=== PATIENT | male | born 1975 | race Two or more races ===

== ENCOUNTER 2021-11-17 10:05 | Outpatient (REF) | payer OTHER, SELFPAY ==
[2021-11-17 09:19] LABS: MANUAL DIFF FLAG NO
[2021-11-17 09:47] LABS: Basophils Percent Auto 0.6 % (0-2); Eosinophils Absolute Auto 0.2 X10*3/uL (0.0-0.4); Eosinophils Percent Auto 3.7 % (0-4); Hematocrit 46.2 % (42.0-52.0); Hemoglobin 16.1 g/dl (14.0-18.0); Imm Gran Abs Auto 0.02 X10*3/uL (0.00-0.03); Imm Gran Pct Auto 0.4 % (0.0-0.4); Lymphocytes Absolute Auto 1.5 X10*3/uL (1.2-4.9); Lymphocytes Percent Auto 30.5 % (20-40); Mean Corpuscular HGB Conc 34.8 g/dl (31.0-36.0); Mean Corpuscular Hemoglobin 31.4 pg (27.0-33.0); Mean Corpuscular Volume 90.2 fL (80.0-98.0); Mean Platelet Volume 10.5 fL (9.4-12.4); Monocytes Absolute Auto 0.5 X10*3/uL (0.1-1.2); Monocytes Percent Auto 10.3 % (2-11); Neutrophils Absolute Auto 2.7 x10*3/uL (2.0-8.3); Neutrophils Percent Auto 54.5 % (45-73); Platelet Count 236 X10*3/uL (160-400); Red Blood Count 5.12 X10*6/uL (4.60-5.80); Red Cell Distribution Width 11.9 % (11.0-16.0); White Blood Count 4.9 X10*3/uL (4.8-10.8)
[2021-11-17 10:13] LABS: Alanine Aminotransferase 16 U/L (0-40); Albumin Level 4.3 g/dL (3.5-5.0); Alkaline Phosphatase 84 U/L (39-117); Anion Gap 12 (12-20); Aspartate Amino Transferase 16 U/L (5-37); Bilirubin Total 1.1 mg/dL (0.0-1.0); Blood Urea Nitrogen 12 mg/dL (9-16); Calcium 9.5 mg/dL (8.4-10.2); Carbon Dioxide 31 mmol/L (22-29); Chloride 103 mmol/L (96-108); Cholesterol 145 mg/dL; Estimated Glomerular Filt Rate > 60; Glucose Fasting 102 mg/dL (60-99); HDL Cholesterol 29 mg/dL; LDL Cholesterol Calculated 92 mg/dl; Potassium 4.5 mmol/L (3.3-5.1); Sodium 141 mmol/L (135-145); Total Protein 7.1 g/dL (6.5-8.0); Triglycerides 121 mg/dL
== END 2021-11-17 10:06 | disposition home or self-care (01) ==
LOC: HO.LAB 10:05
PROVIDERS: Visit Provider Internal Medicine
DX: Z00.00 Encounter for general adult medical examination without abnormal findings (principal); Z13.0 Encounter for screening for diseases of the blood and blood-forming organs and certain disorders involving the immune mechanism; Z13.9 Encounter for screening, unspecified
CPT/HCPCS: 36415; 80053; 80061; 85025

== ENCOUNTER 2021-11-26 18:38 | Emergency (ER) | payer OTHER, SELFPAY ==
--- NOTE | 2021-11-26 19:54 | PC.NURSE ---
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
[2021-11-26 20:36] VITALS: BP 137/100; PULSE 90; RESP 18; TEMP 36.4; O2SAT 98; BMI 27.6
--- NOTE | 2021-11-26 21:20 | ED_ITS ---
HPI - Eye Problem General Chief complaint: Eye Problems Stated complaint: right eye itchy Time Seen by Provider: 11/26/21 21:17 Source: patient and reporting lead (typing section chief) Mode of arrival: ambulatory Limitations: language barrier History of Present Illness HPI Narrative: 46-year-old male healthy here with reports of right upper eyelid swelling and redness with some discomfort and itching for the last 1 week. No vision changes. No recent cough or cold symptoms. Related Data Previous Rx's Medication Instructions Recorded erythromycin 5 mg/gram (0.5 %) eye 0.5 inch OPHTHALMIC (EYE) TID #3.5 11/26/21 ointment g Allergies Allergy/AdvReac Type Severity Reaction Status Date / Time none Allergy Unknown Unknown Uncoded 11/26/21 20:39 Review of Systems Review of Systems: Yes all other systems are reviewed and are negative Constitutional: Constitutional: Reports no additional constitutional complaints, Denies body ache(s), Denies chills, Denies fever(s), Denies headache(s) and Denies weakness Eyes: Eyes: Reports no additional eye complaints, Denies change in vision, Denies eye discharge, Denies irritation and Reports itchy eyes Comments: eyelid swelling, redness ENT: Reports system reviewed and no additional complaints, except as do cumented, Denies dizziness, Denies headache(s), Denies nasal congestion, Denies nasal discharge and Denies neck pain Cardiovascular: Cardiovascular: Reports no additional cardiovascular complaints, Denies chest pain, Denies leg edema and Denies dyspnea Respiratory: Respiratory: Reports no additional respiratory complaints, Denies cough and Denies dyspnea Gastrointestinal: Gastrointestinal: Reports no additional gastrointestinal complaints, Denies abdominal pain, Denies diarrhea, Denies nausea and Denies vomiting Genitourinary: Genitourinary: Denies urinary incontinence Musculoskeletal: Musculoskeletal: Reports no additional musculoskeletal complaints, Denies back pain, Denies arthralgias, Denies joint swelling, Denies neck pain, Denies numbness and Denies tingling Integumentary/Breasts: Skin/Breast: Reports system reviewed and no additional complaints, except as docu and Denies rash Neurologic: Reports system reviewed and no additional complaints, except as documented, Denies Abnormal speech present, Denies dizziness, Denies heada irma(s), Denies numbness, Denies tingling and Denies weakness Allergic/Immunologic: Allergic/Immunologic: Reports itchy eyes PMFSH Past Medical History Attestation statement: The following information was validated with the patient. Source: old records reviewed and nursing notes reviewed Social History Social History Housing: Apartment Patient Tobacco Use Status: Never used Tobacco e-Cigarette/Vaping Use: Never Used Second Hand Smoke Exposure: No Advance Directives: No Advance Directives Information Provided: No service: No Current occupational status: disabled Current occupational exposures/hazards: No Cognitive needs: Yes Hearing needs: No Vision needs: Yes Physical Exam Vital Signs: Vital Signs: Last Vital Signs Temp 97.5 F 11/26/21 20:36 Pulse 90 11/26/21 20:36 Resp 18 11/26/21 20:36 BP 137/100 H 11/26/21 20:36 Pulse Ox 98 11/26/21 20:36 BMI result Body Mass Index 27.6 Const: General: cooperative, healthy appearing, comfortable and no acute distress Orientation/consciousness: patient oriented x3 Limitations: no limitations HEENT: Head: Yes normal to inspection Ears: hearing grossly normal bilaterally General nose exam: Normal external nose present Face and sinus: Yes normal facial exam Mouth: Normal oral and palatal mucosa present Throat: Yes posterior oropharynx normal Eyes: Other: To the right upper eyelid there is an area of swelling, redness over the lateral aspect. Visual Hutchison: normal visual hutchison by confrontation Alignment and Position: alignment normal Periorbital: periorbital findings normal Conjunctivae: conjunctivae normal Sclerae: sclerae normal Corneas: corneas normal Pupils: Equal, round and reactive pupils present EOM: EOMs intact bilaterally Direct Ophthalmoscopy: normal light reflex and no photophobia Neck: Neck: Yes normal visual inspection Chest: Chest palpation & inspection: normal inspection of the chest Resp: Effort & Inspection: normal respiratory effort Auscultation: clear to auscultation bilaterally Cardio: Rate: regular rate Rhythm: regular rhythm Peripheral pulses: Peripheral pulses 2+ throughout GI: Inspection: Yes normal to inspection Palpation (GI): Soft to palpation and nontender Auscultation: normal bowel sounds Back/Spine/Pelvis: Thoracic/Lumbar Spine: thoracic and lumbar spine normal to inspection Skin: General skin exam: no rashes or lesions noted Neuro: General: patient oriented x3, no focal motor deficits and normal sensation to monofilament Cranial nerves: Yes Equal, round and reactive pupils present Cognition (Neuro): normal cognition Speech: No Abnormal speech present Gait exam (Neuro): Normal gait present Motor exam (neuro): 5/5 motor strength present throughout Extrem: General: Yes normal to inspection Course Course Course Narrative: 46-year-old male here with reports of right upper eyelid swelling, redness and itching for the last 1 week. Exam is consistent with a chalazion. Of we discussed warm compresses at home, gentle massage and topical antibiotic ointment. Reviewed worrisome signs and symptoms of when to return to the emergency department. Comfortable discharge home. MDM - Eye Problem Medical Records Attestation: I reviewed the patient's medical records. Lab Data Attestation: I reviewed the patient's lab results. Discharge Plan Discharge Clinical Impression: Chalazion of right upper eyelid Patient Disposition: Home, Self-Care Instructions: Chalazion (ED) Additional Instructions: Warm compresses 4 times daily, gentle massage to the eye Prescriptions: New erythromycin 5 mg/gram (0.5 %) ointment 0.5 inch ophthalmic (eye) TID Qty: 3.5 0RF Referrals: Laci Ayers MD [Primary Care Provider] - 1 week (as needed) Interventions: ED Discharge Assessment Last Done: 11/26/21 21:43 Discharge Date/Time: 11/26/21 21:45
[2021-11-26] MEDS: Erythromycin Base 0.5% Oph Oin 1 GM TUBE 1 CM EYE-RIGHT (21:37)
== END 2021-11-26 21:45 | disposition home or self-care (01) ==
LOC: HO.ED 21:23
PROVIDERS: Emergency Provider Emergency Medicine; PCP Internal Medicine
DX: H00.11 Chalazion right upper eyelid (principal)
CPT/HCPCS: 99283

== ENCOUNTER 2021-12-09 10:14 | Outpatient (REF) | payer OTHER, SELFPAY ==
--- NOTE | ~2021-12-09 | US_ITS ---
EXAMINATION: US ABDOMEN COMPLETE CLINICAL INFORMATION: Unspecified abdominal pain. COMPARISON: US abdomen complete with liver elastography 03/07/2020. Ultrasound abdomen complete 02/06/2020. TECHNIQUE: Real-time imaging of the abdominal viscera. FINDINGS: PANCREAS: The head and body appear unremarkable. The tail is obscured by overlying bowel gas. ABDOMINAL AORTA: No abnormality appreciated. INFERIOR VENA CAVA: Visualized portions are normal. LIVER: Normal. The liver is normal in size. The liver contour is normal. Parenchymal echogenicity is normal. No focal hepatic lesion. There is no intrahepatic biliary duct dilatation seen. GALLBLADDER: Normal. The gallbladder is physiologically distended without evidence of stones, sludge, polyps, wall thickening or pericholecystic fluid. COMMON BILE DUCT: Normal in caliber measuring 0.7 cm in diameter. RIGHT KIDNEY: Normal. No hydronephrosis. No renal calculi or focal parenchymal lesions. The kidney measures 11.9 cm in maximum dimension. LEFT KIDNEY: Normal. No hydronephrosis. No renal calculi or focal parenchymal lesions. The kidney measures 12.4 cm in maximum dimension. SPLEEN: Normal. The spleen measures 9.8 cm in maximum dimension. FREE FLUID: None. US/US abdomen complete IMPRESSION: Normal abdominal ultrasound study.
== END 2021-12-09 10:15 | disposition home or self-care (01) ==
LOC: HO.US 10:14
PROVIDERS: PCP Internal Medicine; Visit Provider Internal Medicine
DX: R10.9 Unspecified abdominal pain (principal)
CPT/HCPCS: 76700

== ENCOUNTER 2022-06-05 08:13 | Outpatient (REF) | payer OTHER, SELFPAY ==
[2022-06-05 08:53] LABS: COVID-19 Test Negative (Negative)
== END 2022-06-05 08:14 | disposition home or self-care (01) ==
LOC: HO.LAB 08:13
PROVIDERS: Visit Provider Internal Medicine
DX: Z20.822 Contact with and (suspected) exposure to COVID-19 (principal)
CPT/HCPCS: 87635; C9803

== ENCOUNTER 2022-09-17 10:10 | Outpatient (REF) | payer OTHER, SELFPAY ==
[2022-09-17 10:22] LABS: MANUAL DIFF FLAG NO
[2022-09-17 11:27] LABS: Basophils Percent Auto 0.7 % (0-2); Eosinophils Absolute Auto 0.1 X10*3/uL (0.0-0.4); Eosinophils Percent Auto 1.5 % (0-4); Hematocrit 45.7 % (42.0-52.0); Hemoglobin 15.5 g/dl (14.0-18.0); Imm Gran Abs Auto 0.01 X10*3/uL (0.00-0.03); Imm Gran Pct Auto 0.2 % (0.0-0.4); Lymphocytes Absolute Auto 1.9 X10*3/uL (1.2-4.9); Mean Corpuscular HGB Conc 33.9 g/dl (31.0-36.0); Mean Corpuscular Hemoglobin 30.6 pg (27.0-33.0); Mean Corpuscular Volume 90.1 fL (80.0-98.0); Mean Platelet Volume 10.3 fL (9.4-12.4); Monocytes Absolute Auto 0.4 X10*3/uL (0.1-1.2); Monocytes Percent Auto 5.9 % (2-11); Neutrophils Absolute Auto 3.5 x10*3/uL (2.0-8.3); Neutrophils Percent Auto 59.7 % (45-73); Platelet Count 253 X10*3/uL (160-400); Red Blood Count 5.07 X10*6/uL (4.60-5.80); Red Cell Distribution Width 12.4 % (11.0-16.0); White Blood Count 5.9 X10*3/uL (4.8-10.8)
[2022-09-17 12:07] LABS: Alanine Aminotransferase 45 U/L (0-40); Albumin Level 4.3 g/dL (3.5-5.0); Alkaline Phosphatase 74 U/L (39-117); Anion Gap 14 (12-20); Aspartate Amino Transferase 25 U/L (5-37); Bilirubin Total 1.2 mg/dL (0.0-1.0); Blood Urea Nitrogen 7 mg/dL (9-16); Calcium 9.9 mg/dL (8.4-10.2); Carbon Dioxide 28 mmol/L (22-29); Chloride 106 mmol/L (96-108); Cholesterol 199 mg/dL; Estimated Glomerular Filt Rate > 60; Glucose Fasting 93 mg/dL (60-99); HDL Cholesterol 39 mg/dL; LDL Cholesterol Calculated 139 mg/dl; Potassium 4.7 mmol/L (3.3-5.1); Sodium 143 mmol/L (135-145); Thyroid Stimulating Hormone 1.32 uIU/mL (0.32-4.0); Total Protein 6.7 g/dL (6.5-8.0); Triglycerides 108 mg/dL
== END 2022-09-17 10:11 | disposition home or self-care (01) ==
LOC: HO.LAB 10:10
PROVIDERS: PCP Internal Medicine; Visit Provider Internal Medicine
DX: E03.9 Hypothyroidism, unspecified (principal); N28.9 Disorder of kidney and ureter, unspecified; E78.5 Hyperlipidemia, unspecified; D64.9 Anemia, unspecified
CPT/HCPCS: 36415; 80053; 80061; 84443; 85025

== ENCOUNTER → 2022-10-19 09:07 | Outpatient (BNVA) | payer OTHER, SELFPAY | PROVIDERS: PCP Internal Medicine; Visit Provider Internal Medicine Gastroenterology | DX: K42.9 Umbilical hernia without obstruction or gangrene (principal); R30.0 Dysuria; Z72.51 High risk heterosexual behavior | CPT/HCPCS: 99212 ==

== ENCOUNTER 2022-10-19 10:32 | Outpatient (REF) | payer OTHER, SELFPAY ==
[2022-10-19 11:43] LABS: Appearance Urine Clear; Color Urine Yellow; Glucose Urine UA Negative (Negative); Leukocyte Esterase Urine Trace (Negative); Nitrite Urine Negative (Negative); PH 8.5 (5.0-9.0); Specific Gravity - Urine 1.025 (1.005-1.025); UMIC TRIGGER UACC YES; Urine Blood Negative (Negative); Urine Ketones Trace mg/dL (Negative); Urine Protein Trace mg/dL (Neg-Trace)
[2022-10-19 11:52] LABS: Bacteria Urine None Seen (None Seen); Hyaline Casts Urine 0-2 /LPF (0-2); Squamous Epithelial Cell Urine 0-2 /HPF (0-2); WBC Urine 0-5 /HPF (0-5)
[2022-10-21 04:39] LABS: HBS Num1 0.24 mIU/mL (0-7.99); HBc Num1 0.08 S/CO (0.00-0.79); HBsAGNum1 0.51 S/CO (0.00-0.99); HIV AB/AG Nonreactive (Nonreactive); HIV Num 1 0.07 S/CO (0.00-0.99); Hepatitis A Antibody IgM 0.18 Index (0-0.79); Hepatitis B Core Antibody Nonreactive (Nonreactive); Hepatitis B Surface Antigen Negative (Negative); ~HepC Num1 0.09 S/CO (0.00-0.79); ~Hepatitis A Antibody IgM Nonreactive (Nonreactive); ~Hepatitis B Surface Antibody NONREACTIVE (Nonreactive); ~Hepatitis C Antibody Nonreactive (Nonreactive)
== END 2022-10-19 10:33 | disposition home or self-care (01) ==
LOC: HO.LAB 10:32
PROVIDERS: PCP Internal Medicine; Visit Provider Internal Medicine Gastroenterology
DX: R30.0 Dysuria (principal); R10.33 Periumbilical pain; Z72.51 High risk heterosexual behavior; Z20.2 Contact with and (suspected) exposure to infections with a predominantly sexual mode of transmission
CPT/HCPCS: 36415; 81001; 86704; 86706; 86709; 86803; 87340; 87389

== ENCOUNTER 2022-10-21 12:32 | Outpatient (REF) | payer OTHER, SELFPAY ==
--- NOTE | ~2022-10-21 | CT_ITS ---
EXAMINATION: CT HEAD WITHOUT CONTRAST CLINICAL INFORMATION: Cognitive dysfunction. COMPARISON: None. TECHNIQUE: Contiguous axial imaging was performed from the skullbase to vertex without intravenous administration of contrast. This CT examination was performed using dose optimization techniques as appropriate, variously including the following: *Automated exposure control *Adjustment of mA and/or kV according to patient size (this includes techniques or standardized protocols for targeted exams where dose is matched to indication/reason for exam; i.e. extremities or head) *Use of iterative reconstruction technique DLP: 898 mGy-cm. FINDINGS: There is no evidence of acute intracranial hemorrhage or territorial infarction. No abnormal mass effect or midline shift is seen. Brown to white matter differentiation is well preserved. No extra-axial fluid collections are identified. The ventricles are normal in size. There is no abnormal attenuation within the brain parenchyma. The osseous structures and soft tissues are normal. The mastoid air cells are well aerated. There is mild mucosal thickening in the ethmoid air cells bilaterally and in the right sphenoid sinus cavity. There is chronic sclerotic wall thickening of the right maxillary sinus with mucosal thickening along the keane of the sinus cavity. There is additional heterogeneous soft tissue density centrally within the right maxillary sinus which is incompletely assessed and has a mass-like appearance with areas of calcification. CT/CT head/brain wo IV con IMPRESSION: No acute intracranial pathology. Normal CT scan of the head. Significant chronic right maxillary sinus disease with incompletely visualized heterogeneous high attenuation soft tissue abnormality which has a mass-like appearance and dystrophic calcifications. Imaging findings may represent a mycetoma. A CT scan of the paranasal sinuses is recommended for further evaluation. An MRI of the sinuses without and with contrast could also be considered for characterization. Recommend ENT follow-up evaluation to guide further management.
== END 2022-10-21 12:33 | disposition home or self-care (01) ==
LOC: HO.CT 12:32
PROVIDERS: Visit Provider Internal Medicine
DX: R41.89 Other symptoms and signs involving cognitive functions and awareness (principal)
CPT/HCPCS: 70450

== ENCOUNTER 2022-11-11 07:52 | Outpatient (REF) | payer OTHER, SELFPAY ==
--- NOTE | ~2022-11-11 | CT_ITS ---
EXAMINATION: CT ENTEROGRAPHY ABDOMEN AND PELVIS WITH CONTRAST CLINICAL INFORMATION: Periumbilical pain COMPARISON: Previous abdominal ultrasound most recent November [address] of the abdomen and pelvis from 2009 TECHNIQUE: Study performed with oral VoLumen (1350 mL) and 480 mL of water to distend the abdomen. The patient was injected with 85 mL Omnipaque 350 intravenous contrast which was administered without adverse effect. Coronal and sagittal reformatted images were obtained at the technologist's workstation. This CT examination was performed using dose optimization techniques as appropriate, variously including the following: *Automated exposure control *Adjustment of mA and/or kV according to patient size (this includes techniques or standardized protocols for targeted exams where dose is matched to indication/reason for exam; i.e. extremities or head) *Use of iterative reconstruction technique DLP: 475 mGy-cm FINDINGS: GASTROINTESTINAL FINDINGS: Stomach: Well-distended and normal in appearance. Small intestine: Satisfactorily distended and normal in appearance. Large intestine: Well-distended and normal in appearance. No perirectal changes demonstrated. The appendix is normal. Additional findings: No abnormal enhancement of the vasa recta or significant mesenteric or retroperitoneal lymphadenopathy is seen. No abdominal abscess or fistulous tract demonstrated. Diastasis of the rectus muscles. Umbilical hernia containing fat with wide neck. This measures 1.5 x 3.5 x 3 cm in AP transverse and longitudinal dimension. ABDOMINAL AND PELVIC CT FINDINGS: Liver, gallbladder, biliary tract: Mild fatty infiltration of the liver. Normal gallbladder. Pancreas: Normal Spleen: Normal Adrenal glands and kidneys: Normal Ureters and bladder: Normal Lymphovascular structures: Normal Bones: Degenerative disc changes at L5-S1. Lung bases: Subsegmental atelectasis in the inferior lingula. Upper normal heart size. CT/CT enterography IMPRESSION: Diastasis of the rectus muscles and umbilical hernia containing fat.
[2022-11-11] MEDS: iohexoL 350 MG/ML 100 ML INFUS..BTL IV (09:39)
== END 2022-11-11 07:53 | disposition home or self-care (01) ==
LOC: HO.CT 07:52
PROVIDERS: PCP Internal Medicine; Visit Provider Internal Medicine Gastroenterology
DX: R10.33 Periumbilical pain (principal); R30.0 Dysuria; Z72.51 High risk heterosexual behavior
CPT/HCPCS: 74177; Q9967

== ENCOUNTER → 2022-11-17 10:13 | Outpatient (BNVA) | payer OTHER, SELFPAY | PROVIDERS: PCP Internal Medicine; Referring Provider Internal Medicine Gastroenterology; Visit Provider Surgery | DX: K42.9 Umbilical hernia without obstruction or gangrene (principal) | CPT/HCPCS: 99202 ==

== ENCOUNTER 2022-12-18 09:15 | Day surgery (SDC) | payer OTHER, SELFPAY ==
[2022-12-15 16:08] VITALS: BMI 28.7
--- NOTE | 2022-12-17 09:46 | HO.ANESPROP2 ---
Documented by User: Fany Dupree NP 12/17/22 09:49 HPI - Anesthesia Eval Consult details Narrative: 47yo M for Open incarcerated Umbilical Hernia [facility]air w[facility] Active Problems Active Problems: All Active Problems (Updated 10/19/22 @ 10:06 by Monet Villatoro MD) Dysuria (Acute) High risk sexual behavior (Acute) Umbilical hernia (Acute) Depression (Acute) Cough (Acute) Deaf (Acute) Physical exam (Acute) Past Medical History Medical History (Updated 12/17/22 @ 09:46 by Fany Dupree NP) Deaf Depression Social History Social History (System 11/26/22 @ 09:55 by Swapna Pelletier) Housing: Apartment Patient Tobacco Use Status: Never used Tobacco e-Cigarette/Vaping Use: Never Used Second Hand Smoke Exposure: No Are you DNR?: No Advance Directives: No Advance Directives Information Provided: Yes service: No Current occupational status: disabled Current occupational exposures/hazards: No Cognitive needs: Yes Hearing needs: No Vision needs: Yes Meds Allergies Allergy/AdvReac Type Severity Reaction Status Date / Time No Known Allergies Allergy Verified 11/26/22 09:55 Exam Exam Date and Time: December 17, 2022 0946 Height,Weight and Vital Signs: Height 5 ft 10 in Weight 90.718 kg Pertinent Lab Results Pertinent Lab Results: Laboratory Tests 09/17/22 09/17/22 10:20 10:20 WBC 5.9 Hgb 15.5 Hct 45.7 Plt Count 253 Sodium 143 Potassium 4.7 Chloride 106 Carbon Dioxide 28 BUN 7 L Creatinine 0.96 Assessment and Plan Assessment Anesthesia Assessment: Chart Reviewed Documented by User: Dontae Moore MD 12/18/22 09:55 [facility] Past Medical History Medical History (Updated 12/17/22 @ 09:46 by Fany Dupree NP) Deaf Depression Family History Family history of problems with anesthesia: No Surgical History History of Problems with Anesthesia: No Social History Social History (System 11/26/22 @ 09:55 by Swapna Pelletier) Housing: Apartment Patient Tobacco Use Status: Never used Tobacco e-Cigarette/Vaping Use: Never Used Second Hand Smoke Exposure: No Are you DNR?: No Advance Directives: No Advance Directives Information Provided: Yes service: No Current occupational status: disabled Current occupational exposures/hazards: No Cognitive needs: Yes Hearing needs: No Vision needs: Yes Meds Allergies Allergy/AdvReac Type Severity Reaction Status Date / Time No Known Allergies Allergy Verified 11/26/22 09:55 Exam Airway Mallampati Class: II TM Dist: >3cm Neck ROM: Full Heart: rrre Lungs: cta Assessment and Plan Assessment Anesthesia Assessment: Anesthesia Plan Discussed Final Anesthetic Review Family History of Problems with Anesthesia: No History of Problems with Anesthesia: No NPO: Yes ASA Class: II Final Preanesthetic Review: No Changes in Pt Med Stat, Meds/Allgs Chart Reviewed, Consent Obtained/Reviewed and Anes Risks/Benef Reviewed Patient Risk: Intermediate Procedure Risk: Intermediate Anesthetic Plan Anesthetic Plan: GA and Agree w/ Assess. and Plan Disposition: Standard PACU
--- NOTE | 2022-12-17 11:33 | MHC.SHP ---
Pre-Procedural Eval Section A Date of Service: 12/17/22 The patient is an INPATIENT: No Changes since office visit: No Cold of Flu in the past 2 weeks, No New Medical Problems, No Changes in Medication and No Patient answered all questions The History & Physical has been completed within 30 days and I have reviewed it.: Yes Section B Chief Complaint: Umbilical hernia without obstruction or gangrene Allergies: Allergies Allergy/AdvReac Type Severity Reaction Status Date / Time No Known Allergies Allergy Verified 11/26/22 09:55 Plan I have reviewed the history and physical and performed a pertinent physical examination on my patient. No changes have occurred unless specified. Time Spent With Patient Time: Total time managing care of this patient today ____ minutes.
[2022-12-18] VITALS (7 sets, daily range): BP systolic 108–148; BP diastolic 69–97; PULSE 66–88; RESP 16–18; TEMP 36.1–36.3; O2SAT 95–98
[2022-12-18] MEDS: Lactated Ringers 1,000 ML 100 ML IVCONT (09:57)
--- NOTE | 2022-12-18 10:47 | P.OP_ITS ---
Operative Note Operative Note Date of Service: 12/18/22 Narrative: Preoperative diagnosis: [] incarcerated umbilical hernia Postop diagnosis: [] same Procedure [] repair incarcerated umbilical hernia with Bard mesh Surgeon: [] Srini Operations Director: [] Type of Anesthesia: general [] Indication for surgery: [] approximately 4 cm incarcerated umbilical hernia with omental content Findings: [] patient is brought to the operating room, placed on operative table in supine position, after adequate level of general anesthesia was induced, the patient's abdomen was prepped and draped in usual sterile fashion. Patient underwent preemptive infiltration analgesia with 0.5% Marcaine. A small curvilinear supraumbilical incision was made and carried down through skin, subcutaneous tissue, where hernia sac was identified and from the posterior aspect of the umbilicus. Sac was circumferentially dissected down to the fascia and opened. Redundant sac and incarcerated omentum were amputated using Bovie. Specimen sent to pathology. Fascia margins were circumferentially cleared. An appropriately sized Bard mesh was placed in the defect, and the superficial layer of the mesh was circumferentially sutured to the surrounding fascia using 0 Ethibond. At completion the procedure, the mesh was in good position with no tension and no gaps. Wound was irrigated, secured hemostasis, and closed in the following manner; posterior aspect of the umbilicus was tacked to the wound floor using interrupted 3-0 Vicryl sutures. Skin was closed using interrupted inverted dermal 3-0 Vicryl sutures followed by Steri-Strips and sterile dressings. Sponge, needle, instrument counts reported to be correct. Patient tolerated the procedure well and emerged anesthesia stable condition. EBL minimal
== END 2022-12-18 12:13 | disposition home or self-care (01) ==
PROVIDERS: PCP Internal Medicine; Visit Provider Surgery
PROC: (CPT 49594; principal; 2022-12-18 11:10)
DX: K42.0 Umbilical hernia with obstruction, without gangrene (principal); H91.90 Unspecified hearing loss, unspecified ear; F32.A Depression, unspecified
CPT/HCPCS: 49594; 88302; C1781; J0131; J0690; J1100; J1885; J2405; J2795

== ENCOUNTER → 2022-12-22 14:43 | Outpatient (BNVA) | payer OTHER, SELFPAY | PROVIDERS: PCP Internal Medicine; Referring Provider Internal Medicine; Visit Provider Surgery ==

== ENCOUNTER → 2023-01-04 08:57 | Outpatient (BNVA) | payer OTHER, SELFPAY | PROVIDERS: PCP Internal Medicine; Visit Provider Surgery ==

== ENCOUNTER → 2023-01-05 10:11 | Outpatient (BNVA) | payer OTHER, SELFPAY | PROVIDERS: PCP Internal Medicine; Visit Provider Nurse Practitioner Family | DX: R35.1 Nocturia (principal); R39.14 Feeling of incomplete bladder emptying; R35.0 Frequency of micturition; R39.15 Urgency of urination | CPT/HCPCS: 51798; 99202 ==

== ENCOUNTER → 2023-01-18 09:04 | Outpatient (BNVA) | payer OTHER, SELFPAY | PROVIDERS: Visit Provider Internal Medicine Gastroenterology | DX: K21.9 Gastro-esophageal reflux disease without esophagitis (principal) | CPT/HCPCS: 99212 ==

== ENCOUNTER 2023-02-08 09:37 | Outpatient (REF) | payer OTHER, SELFPAY ==
--- NOTE | ~2023-02-08 | US_ITS ---
EXAMINATION: US RETROPERITONEAL COMPLETE (RENAL) CLINICAL INFORMATION: Nocturia. COMPARISON: CT enterography abdomen and pelvis with contrast 11/11/2022. Ultrasound abdomen complete 12/09/2021. US abdomen complete with liver elastography 03/07/2020. TECHNIQUE: Real-time imaging of the kidneys and bladder. FINDINGS: RIGHT KIDNEY: 11.6 x 6.0 x 5.5 cm (SAG x AP x TRV). The kidney is normal in size, contour, and echogenicity. Renal cortical thickness is normal. No calculi or focal parenchymal lesions. No hydronephrosis. LEFT KIDNEY: 12.5 x 5.6 x 5.3 cm (SAG x AP x TRV). The kidney is normal in size, contour, and echogenicity. Renal cortical thickness is normal. No calculi or focal parenchymal lesions. No hydronephrosis. BLADDER: Well distended and normal. Bilateral ureteral jets are demonstrated. Prevoid bladder volume is 458 mL. Postvoid bladder volume is 10.8 mL. ADDITIONAL FINDINGS: The prostate gland is slightly enlarged and measures 4.1 x 4 x 5 cm, volume 43 mL US/US retroperitoneal comp IMPRESSION: Normal renal and bladder ultrasound. Slightly enlarged prostate gland.
== END 2023-02-08 09:38 | disposition home or self-care (01) ==
LOC: HO.US 09:37
PROVIDERS: PCP Internal Medicine; Visit Provider Nurse Practitioner Family
DX: R35.1 Nocturia (principal)
CPT/HCPCS: 76770

== ENCOUNTER 2023-02-12 08:26 | Emergency (ER) | payer OTHER, SELFPAY ==
--- NOTE | ~2023-02-12 | XR_ITS ---
EXAMINATION: XR CHEST CLINICAL INFORMATION: Chest pain COMPARISON: None available. TECHNIQUE: Frontal view of the chest was obtained. FINDINGS: No significant abnormality is noted involving the heart, lungs, mediastinum, bony thorax or soft tissues. XR/XR chest 1V IMPRESSION: Unremarkable examination.
[2023-02-12 08:43] VITALS: BP 139/95; PULSE 72; RESP 20; TEMP 36.7; O2SAT 100; BMI 26.7
--- NOTE | 2023-02-12 09:28 | ECG_ITS ---
Test Reason : chest pain Blood Pressure : / mmHG Vent. Rate : 076 BPM Atrial Rate : 076 BPM P-R Int : 164 ms QRS Dur : 098 ms QT Int : 370 ms P-R-T Axes : 020 -12 003 degrees QTc Int : 416 ms Normal sinus rhythm Normal ECG No previous ECGs available Referred By: Generic ED Physician Electronically Signed By:Luis Garcia
[2023-02-12 09:41] LABS: Basophils Percent Auto 0.6 % (0-2); Eosinophils Absolute Auto 0.1 X10*3/uL (0.0-0.4); Eosinophils Percent Auto 2.2 % (0-4); Hematocrit 43.5 % (42.0-52.0); Hemoglobin 15.2 g/dl (14.0-18.0); Imm Gran Abs Auto 0.02 X10*3/uL (0.00-0.03); Imm Gran Pct Auto 0.4 % (0.0-0.4); Lymphocytes Absolute Auto 1.5 X10*3/uL (1.2-4.9); Lymphocytes Percent Auto 30.4 % (20-40); Mean Corpuscular HGB Conc 34.9 g/dl (31.0-36.0); Mean Corpuscular Volume 88.8 fL (80.0-98.0); Monocytes Absolute Auto 0.3 X10*3/uL (0.1-1.2); Monocytes Percent Auto 5.8 % (2-11); Neutrophils Percent Auto 60.6 % (45-73); Platelet Count 221 X10*3/uL (160-400)
[2023-02-12 09:44] LABS: MANUAL DIFF FLAG NO
[2023-02-12 09:56] LABS: Anion Gap 12 (12-20); Blood Urea Nitrogen 7 mg/dL (9-16); Calcium 9.5 mg/dL (8.4-10.2); Carbon Dioxide 23 mmol/L (22-29); Chloride 107 mmol/L (96-108); Creatinine Clr Calc Pharmacy 87.9; Estimated Glomerular Filt Rate > 60; Glucose Random 99 mg/dL (60-115); Potassium 3.6 mmol/L (3.3-5.1); Sodium 138 mmol/L (135-145)
--- NOTE | 2023-02-12 10:02 | PC.NURSE ---
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 pt sts he also had an episode of a rapid, irregular heartbeat yesterday. pt changed over to hospital attire, placed on monitor. EKG and labs obtained. vss. wctm
[2023-02-12 10:05] LABS: Troponin-I High Sensitivity < 2.7 ng/L (<3.5-35.0)
[2023-02-12 11:36] VITALS: BP 149/97; PULSE 79; RESP 20; TEMP 37.2; O2SAT 98
--- NOTE | 2023-02-12 12:10 | ED_ITS ---
HPI - Chest Pain General Chief Complaint: Chest Pain Stated Complaint: fever, dizzy, heartburn, weak, dry mouth Time Seen by Provider: 02/12/23 11:22 Source: patient Limitations: no limitations History of Present Illness HPI narrative: This is a very pleasant 47 years old presented to the emergency department complaining of dizziness palpitation and chest pain which is worse when eating. He has been having this symptoms for a couple of days. 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 He is feeling better at this point. He has no history of coronary artery disease no history of diabetes MD complaint: chest pain Onset (ago): day(s) (2) Timing of current episode: episodic Onset: during rest Pain location: substernal Pain radiation: none Quality: aching Exacerbating factors: other (eating) Risk Factors Coronary artery disease risk factors: none Thoracic aortic dissection risk factors: none Related Data Previous Rx's Medication Instructions Recorded selenium sulfide 2.5 % lotion 1 appl topical DAILY #120 mL 10/19/22 hydrocodone 5 mg-acetaminophen 325 1 tab PO Q4-6H PRN pain #30 tabs 12/18/22 mg tablet pantoprazole 40 mg tablet,delayed 40 mg PO DAILY #90 tabs 01/18/23 release Allergies Allergy/AdvReac Type Severity Reaction Status Date / Time No Known Allergies Allergy Verified 01/18/23 09:41 Review of Systems Constitutional: Constitutional: Reports fatigue and Reports fever(s) Cardiovascular: Cardiovascular: Reports chest pain Endocrine: Endocrine: Reports fatigue [facility] Past Medical History [facility] Narrative: Denies any history of diabetes denies any history of heart disease,he see his customer service rep for GERD Medical History Deaf Depression Surgical History History of esophagogastroduodenoscopy (EGD) Hx of colonoscopy Umbilical hernia (12/18/22) Social History Social History Housing: Apartment Patient Tobacco Use Status: Never used Tobacco Smoked in Last 30 Days: No e-Cigarette/Vaping Use: Never Used Second Hand Smoke Exposure: No Advance Directives: No service: No Current occupational status: disabled Current occupational exposures/hazards: No Cognitive needs: Yes Hearing needs: No Vision needs: Yes Physical Exam Vital Signs: Vital Signs: Last Vital Signs Temp 98.8 F 02/12/23 14:22 Pulse 83 02/12/23 14:22 Resp 16 02/12/23 14:22 BP 139/104 H 02/12/23 14:22 Pulse Ox 95 02/12/23 14:22 O2 Del Method Room Air 02/12/23 14:22 BMI result Body Mass Index 26.7 Const: General: cooperative Nutritional Appearance: average body habitus Orientation/consciousness: patient oriented x3 HEENT: Head: Yes normal to inspection Ears: hearing grossly normal bilaterally General nose exam: Normal external nose present Face and sinus: Yes normal facial exam Mouth: Normal oral and palatal mucosa present Neck: Neck: Yes normal visual inspection and Yes full ROM Chest: Chest palpation & inspection: normal inspection of the chest Resp: Effort & Inspection: normal respiratory effort Auscultation: clear to auscultation bilaterally Cardio: Jugular venous distension: no JVD Rhythm: regular rhythm GI: Inspection: Yes normal to inspection Percussion: Yes normal to percussion Skin: General skin exam: no rashes or lesions noted Lesions: no lesions Rashes: no rashes Nails: normal Neuro: General: patient oriented x3 Course Reevaluation(s) Reevaluation #1: Patient remain stable hemodynamically repeat troponin is negative, this is pretty much ruled out acute coronary syndrome at this point I think the patient can be safely discharged home Time: 13:58 Medical Decision Making Medical Decision Making MDM Narrative: Patient presented with chest pain weakness dry mouth were going to go ahead and do chest x-ray delta tropi and reasses Differential Diagnosis Differential Diagnoses: The differential diagnosis associated with the presentation includes SC/pericarditis/GERD Admission/Observation Consideration of admission/observation: Escalation of care including admission/observation considered Lab Data MDM Lab Attestation statement: I reviewed the patient's lab results. 02/12/23 09:36 02/12/23 09:36 Labs: Lab Results 02/12/23 02/12/23 02/12/23 Range/Units 09:36 09:36 09:36 WBC 5.0 (4.8-10.8) X10*3/uL RBC 4.90 (4.60-5.80) X10*6/uL Hgb 15.2 (14.0-18.0) g/dl Hct 43.5 (42.0-52.0) % MCV 88.8 (80.0-98.0) fL MCH 31.0 (27.0-33.0) pg MCHC 34.9 (31.0-36.0) g/dl RDW 12.0 (11.0-16.0) % Plt Count 221 (160-400) X10*3/uL MPV 10.0 (9.4-12.4) fL Immature Gran % (Auto) 0.4 (0.0-0.4) % Neut % (Auto) 60.6 (45-73) % Lymph % (Auto) 30.4 (20-40) % [place] % (Auto) 5.8 (2-11) % Eos % (Auto) 2.2 (0-4) % Baso % (Auto) 0.6 (0-2) % Lymph # (Auto) 1.5 (1.2-4.9) X10*3/uL [place] # (Auto) 0.3 (0.1-1.2) X10*3/uL Eos # (Auto) 0.1 (0.0-0.4) X10*3/uL Baso # (Auto) 0.0 (0.0-0.2) X10*3/uL Abs Immat Gran (auto) 0.02 (0.00-0.03) X10*3/uL Absolute Neuts (auto) 3.0 (2.0-8.3) x10*3/uL Absolute Nucleated RBC 0.000 (0.0-0.012) X10*3/uL Nucleated RBC % (auto) 0.0 (0.0-0.2) /100WBC Sodium 138 (135-145) mmol/L Potassium 3.6 D (3.3-5.1) mmol/L Chloride 107 (96-108) mmol/L Carbon Dioxide 23 (22-29) mmol/L Anion Gap 12 (12-20) BUN 7 L (9-16) mg/dL Creatinine 1.05 (0.5-1.4) mg/dL Estim Creat Clear Calc 87.9 Estimated GFR > 60 Random Glucose 99 (60-115) mg/dL Calcium 9.5 (8.4-10.2) mg/dL Troponin I High Sens < 2.7 (<3.5-35.0) ng/L 02/12/23 Range/Units 12:09 WBC (4.8-10.8) X10*3/uL RBC (4.60-5.80) X10*6/uL Hgb (14.0-18.0) g/dl Hct (42.0-52.0) % MCV (80.0-98.0) fL MCH (27.0-33.0) pg MCHC (31.0-36.0) g/dl RDW (11.0-16.0) % Plt Count (160-400) X10*3/uL MPV (9.4-12.4) fL Immature Gran % (Auto) (0.0-0.4) % Neut % (Auto) (45-73) % Lymph % (Auto) (20-40) % [place] % (Auto) (2-11) % Eos % (Auto) (0-4) % Baso % (Auto) (0-2) % Lymph # (Auto) (1.2-4.9) X10*3/uL [place] # (Auto) (0.1-1.2) X10*3/uL Eos # (Auto) (0.0-0.4) X10*3/uL Baso # (Auto) (0.0-0.2) X10*3/uL Abs Immat Gran (auto) (0.00-0.03) X10*3/uL Absolute Neuts (auto) (2.0-8.3) x10*3/uL Absolute Nucleated RBC (0.0-0.012) X10*3/uL Nucleated RBC % (auto) (0.0-0.2) /100WBC Sodium (135-145) mmol/L Potassium (3.3-5.1) mmol/L Chloride (96-108) mmol/L Carbon Dioxide (22-29) mmol/L Anion Gap (12-20) BUN (9-16) mg/dL Creatinine (0.5-1.4) mg/dL Estim Creat Clear Calc Estimated GFR Random Glucose (60-115) mg/dL Calcium (8.4-10.2) mg/dL Troponin I High Sens < 2.7 (<3.5-35.0) ng/L Independent Interpretation I performed an independent interpretation of an: EKG (Normal sinus rhythm 76 no ischemia) and Plain X-Ray Radiology Impression Discussion of test interpretation with radiology: I have reviewed the radiologist's reading. Prescription Management I considered prescription management with: Pain Medication Discharge Plan Discharge Clinical Impression: Chest pain Patient Disposition: Home, Self-Care Instructions: Chest Pain (DC) Additional Instructions: You have been evaluated today for chest pain, the blood test for heart attack was negative, you chest x-ray was normal, this pain most likely is due to GERD, continue pantoprazole, follow-up with your primary care physician a customer service rep, return if you are worse Prescriptions: No Action hydrocodone-acetaminophen 5-325 mg tablet 1 tab PO Q4-6H PRN (Reason: pain) Qty: 30 0RF Rx Instructions: Partial Fill upon patient request. selenium sulfide 2.5 % lotion 1 appl topical DAILY Qty: 120 0RF Rx Instructions: apply to rash, leave for 10 mins and wash off for 1 week pantoprazole 40 mg tablet,delayed release (DR/EC) 40 mg PO DAILY Qty: 90 1RF Referrals: Laci Ayers MD [Primary Care Provider] - 3 days Interventions: ED Discharge Assessment Last Done: 02/12/23 14:31 Discharge Date/Time: 02/12/23 14:32
[2023-02-12 13:24] LABS: Troponin-I High Sensitivity < 2.7 ng/L (<3.5-35.0)
[2023-02-12 13:40] VITALS: BP 132/97; PULSE 71; RESP 18; TEMP 36.7; O2SAT 96
[2023-02-12 14:22] VITALS: BP 139/104; PULSE 83; RESP 16; TEMP 37.1; O2SAT 95
== END 2023-02-12 14:32 | disposition home or self-care (01) ==
PROVIDERS: Emergency Provider Emergency Medicine; PCP Internal Medicine
DX: R07.9 Chest pain, unspecified (principal); Z79.899 Other long term (current) drug therapy
CPT/HCPCS: 36415; 71045; 80048; 84484; 85025; 93005; 99283; 99285

== ENCOUNTER → 2023-02-12 09:28 | Outpatient (BNV) | payer OTHER, SELFPAY | PROVIDERS: Emergency Provider Emergency Medicine; PCP Internal Medicine; Visit Provider Internal Medicine Cardiovascular Disease | DX: R07.9 Chest pain, unspecified (principal) | CPT/HCPCS: 93010 ==

== ENCOUNTER 2023-02-16 09:35 | Outpatient (REF) | payer OTHER, SELFPAY ==
[2023-02-16 17:45] LABS: Urine Cytology See Pathology rpt
== END 2023-02-16 09:36 | disposition home or self-care (01) ==
LOC: HO.LNP 09:35
PROVIDERS: PCP Internal Medicine; Visit Provider Nurse Practitioner Family
DX: R30.0 Dysuria (principal); R39.14 Feeling of incomplete bladder emptying; R39.12 Poor urinary stream; N39.43 Post-void dribbling
CPT/HCPCS: 51798; 88112; 99212

== ENCOUNTER 2023-02-16 09:35 | Outpatient (AMB) | payer OTHER, SELFPAY ==
--- NOTE | 2023-02-16 09:37 | A.OFFVIS_ITS ---
Intake Intake Visit Reasons: 6w/US(set) Intake Note: Patient is present for follow up visit Nocturia Urology Medications: none Blood Thinner: none PVR: 27ml's Cryolite Recovery Operator Required: Yes Accompanied by: hose stripper Allergies No Known Allergies Allergy (Verified 02/16/23 20:38) Medication List - Last Reconciled 02/16/23 by KRYSTLE Marquez ipratropium bromide 2 sprays intranasal TID pantoprazole 40 mg PO DAILY selenium sulfide 2.5% 1 appl topical DAILY tamsulosin 0.4 mg PO BEDTIME 30 days HPI HPI Comments History of Present Illness Details Abhijeet is a pleasant 47-year-old male patient of Dr. Ayers. He has a past medical history of depression and is deaf. tech brazer tester in to provide translation. He presents to the office today for follow-up. Of note, patient was seen approximately 6 weeks ago as a new patient for lower urinary tract symptoms at which time retroperitoneal ultrasound was ordered further assessment evaluation. These results were reviewed with the patient today. Bilateral kidneys with no calculi, lesions, and or hydronephrosis noted. The bladder is well distended and normal. Pre void bladder volume is approximately 450 mL. Postvoid bladder volume is approximately 10 mL. The prostate gland is slightly enlarged and measures approximately 43 mL. In discussion with the patient today he reports to be doing and feeling well. He continues to report feelings of incomplete bladder emptying as well as weak urinary stream and dribbling. He otherwise denies urinary urgency, urinary frequency, incontinence, nocturia, hematuria, dysuria, foul smelling urine, flank pain, fever, and or chills. Patient discusses previous urology care however it is unclear during ASL interpretation of previous treatment therapies. Discuss trial Flomax. Discussed near future in office cystoscopy is symptoms persist and/or worsen. Information provided for pelvic floor exercises. Patient otherwise denies any issues or concerns at this time. In office urinalysis results reviewed with the patient today. PVR 27 mL. PFSH Medical History Deaf Depression Surgical History History of esophagogastroduodenoscopy (EGD) Hx of colonoscopy Umbilical hernia (12/18/22) Social History Housing: Apartment Patient Tobacco Use Status: Never used Tobacco e-Cigarette/Vaping Use: Never Used Second Hand Smoke Exposure: No service: No Current occupational status: disabled Current occupational exposures/hazards: No Cognitive needs: Yes Hearing needs: No Vision needs: Yes Review of Systems Const Reports no additional complaints Eyes Reports no additional complaints ENT Reports no additional complaints Card Reports no additional complaints Resp Reports no additional complaints GI Reports as per HPI Reports as per HPI Musc Reports no additional complaints Neuro Reports no additional complaints Psych Reports as per HPI Endo Reports no additional complaints Duke/Lymph Reports no additional complaints Aller/Immun Reports no additional complaints Physical Exam Const General: cooperative, healthy appearing, comfortable, no acute distress, well developed, alert and awake Orientation/consciousness: patient oriented x3 Limitations: no limitations HEENT Head: Yes normal to inspection, Yes normocephalic and Yes atraumatic Ears: other (Deaf; tech brazer tester present to assist with translation) Eyes General: appearance normal, both eyes and all related structures Neck Neck: Yes normal visual inspection and Yes trachea midline Chest Chest palpation & inspection: normal inspection of the chest Resp Effort & Inspection: normal respiratory effort and able to speak in complete sentences Cardio Rate: regular rate GI Inspection: Yes normal to inspection General: Yes no CVA tenderness Back/Spine/Pelvis Back: no CVA tenderness Skin General skin exam: no rashes or lesions noted Neuro General: patient oriented x3 Extrem General: Yes normal to inspection Psych Appearance: grossly normal and well kempt Mental Status: mental status grossly normal Speech and movement: Normal speech and movement present and Clear speech present Affect: normal affect Attitude: cooperative Thought process: Normal thought process present Thought content: Normal thought content present Insight: Fair insight present (Psych) Judgement: Fair judgement present (Psych) Office Procedures Post Void Residual Post Residual Void Post Void Residual (PVR): 27 [id number] Void Residual by ultrasound Results AMB Urinalysis, Automated UA Leukoctes 15 Brisa/uL Last Edit by Linda Steel on 02/16/23 10:11 UA Nitrite Negative Last Edit by Linda Steel on 02/16/23 10:11 UA Urobilinogen 0.2 mg/dL Last Edit by Linda Steel on 02/16/23 10:11 UA Protein 30 mg/dL Last Edit by Linda Steel on 02/16/23 10:11 UA pH 6.0 Last Edit by Debrae Milvia on 02/16/23 10:11 UA Blood 10 Chris/uL Last Edit by Linda Steel on 02/16/23 10:11 UA Specific [place] 1.020 Last Edit by Talonycjimmy Steel on 02/16/23 10:11 UA Ketone Positive Last Edit by Talonyce Milvia on 02/16/23 10:11 UA Bilirubin 1 mg/dL Last Edit by Linda Steel on 02/16/23 10:11 UA Glucose 0 mg/dL Last Edit by Linda Steel on 02/16/23 10:11 Results Reviewed Results Reviewed: Laboratory Last Values Urine pH (Auto) 6.0 02/16/23 09:39 Specific [place] (Auto) 1.020 02/16/23 09:39 Urine Protein (Auto) 30 mg/dL 02/16/23 09:39 Glucose (UA)(Auto) 0 mg/dL 02/16/23 09:39 Urine Ketones (Auto) Positive 02/16/23 09:39 Urine Blood (Auto) 10 Chris/uL 02/16/23 09:39 Urine Nitrite (Auto) Negative 02/16/23 09:39 Urine Bilirubin (Auto) 1 mg/dL 02/16/23 09:39 Urine Urobilinogen (Auto) 0.2 mg/dL 02/16/23 09:39 Leukocyte Esterase (Auto) 15 Brisa/uL 02/16/23 09:39 Date of Service: 02/08/23 EXAMINATION: US RETROPERITONEAL COMPLETE (RENAL) FINDINGS: RIGHT KIDNEY: 11.6 x 6.0 x 5.5 cm (SAG x AP x TRV). The kidney is normal in size, contour, and echogenicity. Renal cortical thickness is normal. No calculi or focal parenchymal lesions. No hydronephrosis. LEFT KIDNEY: 12.5 x 5.6 x 5.3 cm (SAG x AP x TRV). The kidney is normal in size, contour, and echogenicity. Renal cortical thickness is normal. No calculi or focal parenchymal lesions. No hydronephrosis. BLADDER: Well distended and normal. Bilateral ureteral jets are demonstrated. Prevoid bladder volume is 458 mL. Postvoid bladder volume is 10.8 mL. ADDITIONAL FINDINGS: The prostate gland is slightly enlarged and measures 4.1 x 4 x 5 cm, volume 43 mL IMPRESSION: Normal renal and bladder ultrasound. Slightly enlarged prostate gland. Assessment & Plan Assessment & Plan (1) Feeling of incomplete bladder emptying: Code(s): R39.14 - Feeling of incomplete bladder emptying (2) Weak urinary stream: Code(s): R39.12 - Poor urinary stream (3) Urinary dribbling: Code(s): N39.43 - Post-void dribbling Plan In office urinalysis results reviewed with the patient today. PVR less than 30 mL. Recent retroperitoneal ultrasound results reviewed with the patient today. Start Flomax as discussed and prescribed. Discussed at length pelvic floor exercises; information provided Discussed near future in office cystoscopy is symptoms persist and/or worsen. Discussed at length the importance of drinking plenty of water daily. Follow-up in 6 weeks with PVR; or sooner with any issues, concerns, and or questions. Orders: Orders Urine Cytology Today R30.0 - Dysuria AMB Urinalysis Automated Today Z13.9 - Encounter for screening, unspecified AMB Post Void Residual by ultrasound Today R39.15 - Urgency of urination Medications: New tamsulosin 0.4 mg PO BEDTIME 30 days 30 caps 1RF N40.1 - Benign prostatic hyperplasia with lower urinary tract symptoms, R35.1 - Nocturia Patient Instructions: The patient had an opportunity to ask questions regarding the treatment plan. All questions were answered. Physical exam, labs, and imaging were discussed and reviewed in detail. As well as risks, benefits, and discussion of treatment choices. No major barriers to understanding were identified. The patient expressed understanding and agreement with the above treatment plan. The patient was made aware they should contact our office by phone for worsening of their current condition, the appearance of new symptoms, or with any questions or concerns. Compliance is encouraged with any medications and follow up testing that is ordered. It is a privilege to be allowed the opportunity to participate in? your urological care.? Again, if you have any questions or concerns If you have any questions or concerns please do not hesitate to contact me. The office is [phone]. This note is constructed using voice recognition software. While every effort has been made to ensure accuracy pulling unit floorhand errors may have been included. Yours sincerely, KRYSTLE Marquez Coding Level of Care Code Est Pt Level 4 (20824) Diagnoses Feeling of incomplete bladder emptying R39.14 Weak urinary stream R39.12 Urinary dribbling N39.43 CPT Codes Post Residual Void - PVR CPT Code: 35218-Jmjo Void Residual by ultrasound ([id number])
== END 2023-02-16 10:35 | disposition home or self-care (01) ==
PROVIDERS: PCP Internal Medicine; Visit Provider Nurse Practitioner Family
DX: R39.14 Feeling of incomplete bladder emptying (principal); R39.12 Poor urinary stream; N39.43 Post-void dribbling
CPT/HCPCS: 99214

== ENCOUNTER 2023-02-19 09:13 | Outpatient (AMB) | payer OTHER, SELFPAY ==
--- NOTE | 2023-02-19 09:20 | MHC.PC.OV ---
Vital Signs 02/19/23 09:21 Height 5 ft 9 in Weight 194 lb 6 oz BMI 28.7 BP 110/60 Blood Pressure Location Lt brachial Position Sitting Pulse 90 Pulse Source Pulse Oximeter Pulse Oximetry (%) 96 Oxygen Delivery Method Room Air Intake Visit Reasons: medical concerns Intake Note: Patient is here to follow up on medical concerns. Complaint of light headiness, chest pain,hard time eating. Was seen at the [facility] ED. Neurology Specialist Required: Yes Neurology Specialist Language: Denial Resolution Specialist Name: Gracie([id number]) Information Interpreted: non-clinical & clinical Production Support Consultant: Not Required per policy Accompanied by: Self / Same As Patient Allergies No Known Allergies Allergy (Verified 02/19/23 09:21) Medication List - Last Reconciled 02/19/23 by Laci Ayers MD ipratropium bromide 2 sprays intranasal TID pantoprazole 40 mg PO DAILY selenium sulfide 2.5% 1 appl topical DAILY tamsulosin 0.4 mg PO BEDTIME 30 days Tobacco use date assessed: 02/19/23 Dental Screening Dental Screen Date: 02/19/23 Did you have a dental visit in the last 12 months?: Yes Did you have a dental problem in the last 6 months where you did not have access to dental care?: No Was dental information given to patient?: Patient has dentist HPI medical concerns HPI Details has GERD with heartburn; has seen card and GI; rx for pantoprazole given but he has not taken it PFSH Medical History Deaf Depression Surgical History History of esophagogastroduodenoscopy (EGD) Hx of colonoscopy Umbilical hernia (12/18/22) Social History Housing: Apartment Patient Tobacco Use Status: Never used Tobacco e-Cigarette/Vaping Use: Never Used Second Hand Smoke Exposure: No service: No Current occupational status: disabled Current occupational exposures/hazards: No Cognitive needs: Yes Hearing needs: No Vision needs: Yes Questionnaire PHQ-9 Over the last 2 weeks, how often have you been bothered by any of the following problems? Depression Screening Interpretation: Negative Source: Developed by Drs. Martín LOilvia Ludwig, Ramirez Harris and colleagues, with an educational vanesa from [email or web address]. Thrive Questionnaire Date Thrive assessed: 08/06/22 MODESTA-7 AMB Questionnaire MODESTA-7 Date MODESTA - 7 assessed: 11/12/22 Source: Developed by Olivia Jackson, Ramirez Harris and colleagues, with an educational vanesa from [email or web address]. Review of Systems Const Denies chills, Denies headache(s) and Denies weight loss ENT Denies headache(s) Card Denies syncope, Denies irregular heart rhythm and Denies dyspnea Resp Denies chest congestion, Denies cough and Denies dyspnea GI Denies change in stool character, Denies nausea and Denies vomiting Musc Denies deformity and Denies joint swelling Neuro Denies syncope and Denies headache(s) Physical exam (Primary Care) Vital Signs: Last Vital Signs Pulse 90 02/19/23 09:21 BP 110/60 02/19/23 09:21 Pulse Ox 96 02/19/23 09:21 Oxygen Delivery Method Room Air 02/19/23 09:21 BMI result Body Mass Index 28.7 Tobacco/Smoking Status: Tobacco use Status Tobacco use date assessed 02/19/23 02/19/23 09:33 Patient Tobacco Use Status Never used Tobacco 02/19/23 09:33 e-Cigarette/Vaping Use Never Used 02/19/23 09:33 Depression Screening Interpretation: Negative Thrive Assessment: Date of Thrive Assessment Date Thrive assessed 08/06/22 02/19/23 09:33 Const General: cooperative, healthy appearing and no acute distress Orientation/consciousness: oriented to person, oriented to place and oriented to time [facility] Head: Yes normal to inspection, Yes normocephalic and Yes atraumatic Mouth: Normal oral and palatal mucosa present and tongue normal Throat: Yes posterior oropharynx normal and Yes uvula midline Eyes General: appearance normal, both eyes and all related structures Neck Neck: Yes normal visual inspection, Yes full ROM and Yes no lymphadenopathy Thyroid: Thyroid normal Carotids: normal carotid upstroke Chest Chest palpation & inspection: normal inspection of the chest Resp Effort & Inspection: normal respiratory effort and able to speak in complete sentences Auscultation: clear to auscultation bilaterally Cardio Jugular venous distension: no JVD Palpation: normal PMI Rate: regular rate Rhythm: regular rhythm Heart sounds: S1 normal heart sound present and S2 normal heart sound present GI Inspection: Yes normal to inspection Palpation (GI): Soft to palpation and No hepatosplenomegaly present Auscultation: normal bowel sounds General: Yes no CVA tenderness Back/Spine/Pelvis Back: no CVA tenderness Skin General skin exam: no rashes or lesions noted Neuro General: oriented to person, oriented to place and oriented to time Extrem General: Yes normal to inspection and Yes full ROM Assessment and Plan Assessment & Plan (1) GERD (gastroesophageal reflux disease): Code(s): K21.9 - Gastro-esophageal reflux disease without esophagitis Plan: advised to take rx Coding Level of Care Code Est Pt Level 3 (90685) Diagnoses GERD (gastroesophageal reflux disease) K21.9
[2023-02-19 09:21] VITALS: BP 110/60; PULSE 90; O2SAT 96; BMI 28.7
== END 2023-02-19 09:52 | disposition home or self-care (01) ==
PROVIDERS: PCP Internal Medicine; Visit Provider Internal Medicine
DX: K21.9 Gastro-esophageal reflux disease without esophagitis (principal)
CPT/HCPCS: 99213

== ENCOUNTER 2023-03-30 09:24 | Outpatient (AMB) | payer OTHER, SELFPAY ==
--- NOTE | 2023-03-30 09:30 | A.OFFVIS_ITS ---
Intake Intake Visit Reasons: 6w/PVR(utility bill complaints investigator approved) Intake Note: Patient is present for follow up visit weak urinary system/post void dribbling Urology Medications: Tamsulosin Blood Thinner: none PVR: 0ml's Cutter Banana Room Required: Yes Accompanied by: utility bill complaints investigator Allergies No Known Allergies Allergy (Verified 03/30/23 21:30) Medication List - Last Reconciled 03/30/23 by KRYSTLE Marquez ipratropium bromide 2 sprays intranasal TID pantoprazole 40 mg PO DAILY selenium sulfide 2.5% 1 appl topical DAILY tamsulosin 0.4 mg PO BEDTIME 30 days HPI HPI Comments History of Present Illness Details Abhijeet is a pleasant 47-year-old male patient of Dr. Ayers. He has a past medical history of depression and is deaf. bilingual inside sales representative in to provide translation. He presents to the office today for follow-up. Of note, patient was seen approximately 6 weeks ago at which time the patient was started on Flomax. In discussion with the patient today he reports having had issues with GI upset and has yet to have started tamsulosin. He discusses following up with gastrointestinal provider here at [facility]. When asked he does continue to report feelings of incomplete bladder emptying as well as weak stream and urinary dribbling. In office urinalysis results reviewed with the patient today. PVR 0ml's. Previous workup has included retroperitoneal ultrasound which showed bilateral kidneys with no calculi, lesions, and or hydronephrosis noted. The bladder is well distended and normal. Pre void bladder volume is approximately 450 mL. Postvoid bladder volume is approximately 10 mL. The prostate gland is slightly enlarged and measures approximately 43 mL. He otherwise denies urinary urgency, urinary frequency, incontinence, nocturia, hematuria, dysuria, foul smelling urine, flank pain, fever, and or chills. Patient discusses previous urology care however it is unclear during ASL interpretation of previous treatment therapies. Discussed trial of Flomax. Discussed near future in office cystoscopy is symptoms persist and/or worsen. Information provided for pelvic floor exercises again. Patient otherwise denies any issues or concerns at this time. [facility] Medical History Deaf Depression Surgical History History of esophagogastroduodenoscopy (EGD) Hx of colonoscopy Umbilical hernia (12/18/22) Social History Housing: Apartment Patient Tobacco Use Status: Never used Tobacco e-Cigarette/Vaping Use: Never Used Second Hand Smoke Exposure: No service: No Current occupational status: disabled Current occupational exposures/hazards: No Cognitive needs: Yes Hearing needs: No Vision needs: Yes Review of Systems Const Reports no additional complaints Eyes Reports no additional complaints ENT Reports no additional complaints Card Reports no additional complaints Resp Reports no additional complaints GI Reports as per HPI Reports as per HPI Musc Reports no additional complaints Neuro Reports no additional complaints Psych Reports as per HPI Endo Reports no additional complaints Duke/Lymph Reports no additional complaints Aller/Immun Reports no additional complaints Physical Exam Const General: cooperative, healthy appearing, comfortable, no acute distress, well developed, alert and awake Orientation/consciousness: patient oriented x3 Limitations: no limitations HEENT Head: Yes normal to inspection, Yes normocephalic and Yes atraumatic Ears: other (Deaf; bilingual inside sales representative present to assist with translation) Eyes General: appearance normal, both eyes and all related structures Neck Neck: Yes normal visual inspection and Yes trachea midline Chest Chest palpation & inspection: normal inspection of the chest Resp Effort & Inspection: normal respiratory effort and able to speak in complete sentences Cardio Rate: regular rate GI Inspection: Yes normal to inspection General: Yes no CVA tenderness Back/Spine/Pelvis Back: no CVA tenderness Skin General skin exam: no rashes or lesions noted Neuro General: patient oriented x3 Extrem General: Yes normal to inspection Psych Appearance: grossly normal and well kempt Mental Status: mental status grossly normal Speech and movement: Normal speech and movement present and Clear speech present Affect: normal affect Attitude: cooperative Thought process: Normal thought process present Thought content: Normal thought content present Insight: Fair insight present (Psych) Judgement: Fair judgement present (Psych) Office Procedures Post Void Residual Post Residual Void Post Void Residual (PVR): 0 32603-Stxt Void Residual by ultrasound Results AMB Urinalysis, Automated 2 UA Leukoctes 0 Brisa/uL Last Edit by Linda Steel on 03/30/23 09:58 UA Nitrite Last Edit by Linda Steel on 03/30/23 09:58 UA Urobilinogen 0.2 mg/dL Last Edit by Linda Brewercody on 03/30/23 09:58 UA Protein 0 mg/dL Last Edit by Debrajimmy Daniellacody on 03/30/23 09:58 UA pH 7.5 Last Edit by Taloncehn Daniellacody on 03/30/23 09:58 UA Blood 0 Chris/uL Last Edit by Talonchen Daniellacoyd on 03/30/23 09:58 UA Specific [place] 1.005 Last Edit by Debrajimmy Daniellacody on 03/30/23 09:58 UA Ketone Negative Last Edit by Talonchen Daniellacody on 03/30/23 09:58 UA Bilirubin 0 mg/dL Last Edit by Talonchen Daniellacody on 03/30/23 09:58 UA Glucose 0 mg/dL Last Edit by Linda Daniellacody on 03/30/23 09:58 Results Reviewed Results Reviewed: Laboratory Last Values Urine pH (Auto) 7.5 03/30/23 09:31 Specific [place] (Auto) 1.005 03/30/23 09:31 Urine Protein (Auto) 0 mg/dL 03/30/23 09:31 Glucose (UA)(Auto) 0 mg/dL 03/30/23 09:31 Urine Ketones (Auto) Negative 03/30/23 09:31 Urine Blood (Auto) 0 Chris/uL 03/30/23 09:31 Urine Bilirubin (Auto) 0 mg/dL 03/30/23 09:31 Urine Urobilinogen (Auto) 0.2 mg/dL 03/30/23 09:31 Leukocyte Esterase (Auto) 0 Brisa/uL 03/30/23 09:31 Assessment & Plan Assessment & Plan (1) Urinary dribbling: Code(s): N39.43 - Post-void dribbling (2) Weak urinary stream: Code(s): R39.12 - Poor urinary stream Plan In office urinalysis results reviewed with the patient today; as noted above. PVR 0 mL. Patient discusses he would like to trial Flomax Discussed at length pelvic floor therapy/exercises to assist with urinary dribbling as well as potentials for improvement in urinary stream. Discussed possible near future in office cystoscopy if symptoms persist and/or worsen. Discussed, stress, and educated on the importance of drinking plenty of water daily. Follow-up in 6 weeks with PVR; or sooner with any issues, concerns, and or questions. Orders: Orders AMB Urinalysis Automated Today Z13.9 - Encounter for screening, unspecified AMB Post Void Residual by ultrasound Today R39.12 - Poor urinary stream Medications: Refilled tamsulosin 0.4 mg PO BEDTIME 30 days 30 caps 1RF N40.1 - Benign prostatic hyperplasia with lower urinary tract symptoms, R35.1 - Nocturia Patient Instructions: The patient had an opportunity to ask questions regarding the treatment plan. All questions were answered. Physical exam, labs, and imaging were discussed and reviewed in detail. As well as risks, benefits, and discussion of treatment choices. No major barriers to understanding were identified. The patient expressed understanding and agreement with the above treatment plan. The patient was made aware they should contact our office by phone for worsening of their current condition, the appearance of new symptoms, or with any questions or concerns. Compliance is encouraged with any medications and follow up testing that is ordered. It is a privilege to be allowed the opportunity to participate in? your urological care.? Again, if you have any questions or concerns If you have any questions or concerns please do not hesitate to contact me. The office is [phone]. This note is constructed using voice recognition software. While every effort has been made to ensure accuracy supervisory civil engineer errors may have been included. Yours sincerely, KRYSTLE Marquez Coding Level of Care Code Est Pt Level 3 (16663) Diagnoses Urinary dribbling N39.43 Weak urinary stream R39.12 CPT Codes Post Residual Void - PVR CPT Code: 92922-Bfmf Void Residual by ultrasound ([id number])
== END 2023-03-30 10:25 | disposition home or self-care (01) ==
PROVIDERS: PCP Internal Medicine; Visit Provider Nurse Practitioner Family
DX: N39.43 Post-void dribbling (principal); R39.12 Poor urinary stream
CPT/HCPCS: 99213

== ENCOUNTER → 2023-03-30 09:24 | Outpatient (BNVA) | payer OTHER, SELFPAY | PROVIDERS: PCP Internal Medicine; Visit Provider Nurse Practitioner Family | DX: N39.43 Post-void dribbling (principal); R39.12 Poor urinary stream | CPT/HCPCS: 51798; 81003; 99212 ==

== ENCOUNTER 2023-05-10 14:13 | Outpatient (AMB) | payer OTHER, SELFPAY ==
[2023-05-10 14:14] VITALS: BP 128/82; PULSE 106; BMI 28.6
--- NOTE | 2023-05-10 14:14 | MHC.OFFVIS ---
Intake Vital Signs 05/10/23 14:14 Height 5 ft 9 in Weight 194 lb 0.108 oz BMI 28.6 BP 128/82 Blood Pressure Location Lt brachial Position Sitting Pulse 106 H Intake Visit Reasons: 4 mnth follow up Intake Note: Abhijeet presents in the office as a 4 month follow up. CC: Tamsulosin makes his chest hurt and he only takes it when he can sleep. Other than that he said everything else is feeling okay and he seen an ENT that he needs to have sinus surgery for. HE states that his stomach has been hard recently. HE has to be careful with what he eats. He gets a weakness in his esophagus. He gets pains and feels like something was in there. They thought maybe it could be acid but it was not an infection or anything. He also gets spasms in the esophgus and chest area. Product Engineering Manager Required: Yes Product Engineering Manager Name: Julieth Allergies No Known Allergies Allergy (Verified 05/10/23 14:21) HPI 4 mnth follow up HPI Details RECAP: He had EGD and colo for abdo pain 2020 mild esophagitis mild gastric erythema normal colonoscopy apart from hemorrhoids path- chronic erosive esophagitis US 11/2021-- normal Labs: 2022-nml HGB, mild raised bili and ALT At last visit : CTe: no evidence of IBD, umbilical henria and diastasis of recti musc noted referred to urology due to urine issues referred to [facility] for umbilical hernia repair, which he had done INTERIM: He had episode of chest pain and sweating, and he had cardiac assessment which was apparently neg he has soft stools better now with watching diet and food he is taking pantoprazole 40 mg daily, been taking it for 1 month EXAM: GENERAL: The patient is well developed and nontoxic. VITAL SIGNS:see workflow HEENT: Nonicteric sclerae, PERRLA, EOMI. Oropharynx clear. Moist mucous membranes. Conjunctivae appear well perfused. No thyroid mass. CHEST: Chest wall is nontender. HEART: Regular rate and rhythm without murmurs. LUNGS: Clear to auscultation bilaterally. ABDOMEN: Soft, positive bowel sounds, nontender, no organomegaly.no flank tenderness--moderate umbilical hernia, tender to touch SKIN: dry skin, few scaly patches NEUROLOGIC: Cranial nerves II-XII intact without motor/sensory deficit. psych- nml affect A/P; 1/ GERD, possibly non cardiac chest pain related to this, and maybe PPI not working PLAN: 1/ cont with PPI, still early days 2/ EGD for further assessment, r/o infectious causes, EoE PFSH Medical History Deaf Depression Surgical History History of esophagogastroduodenoscopy (EGD) Hx of colonoscopy Umbilical hernia (12/18/22) Social History Housing: Apartment Patient Tobacco Use Status: Never used Tobacco e-Cigarette/Vaping Use: Never Used Second Hand Smoke Exposure: No service: No Current occupational status: disabled Current occupational exposures/hazards: No Cognitive needs: Yes Hearing needs: No Vision needs: Yes Physical Exam Vital Signs: Last Vital Signs Pulse 106 H 05/10/23 14:14 BP 128/82 05/10/23 14:14 BMI result Body Mass Index 28.6 Assessment & Plan Assessment & Plan (1) GERD (gastroesophageal reflux disease): Code(s): K21.9 - Gastro-esophageal reflux disease without esophagitis Coding Level of Care Code Est Pt Level 3 (95817) Diagnoses GERD (gastroesophageal reflux disease) K21.9
== END 2023-05-10 15:19 | disposition home or self-care (01) ==
PROVIDERS: PCP Internal Medicine; Visit Provider Internal Medicine Gastroenterology
DX: K21.9 Gastro-esophageal reflux disease without esophagitis (principal)
CPT/HCPCS: 99213

== ENCOUNTER → 2023-05-10 14:13 | Outpatient (BNVA) | payer OTHER, SELFPAY | PROVIDERS: PCP Internal Medicine; Visit Provider Internal Medicine Gastroenterology | DX: K21.9 Gastro-esophageal reflux disease without esophagitis (principal) | CPT/HCPCS: 99212 ==

== ENCOUNTER 2023-05-11 08:36 | Outpatient (AMB) | payer OTHER, SELFPAY ==
--- NOTE | 2023-05-11 08:55 | MHC.OFFVIS ---
Intake Intake Visit Reasons: 6w/PVR (head of store operations confirmed) Intake Note: Patient is present for follow up visit weak urinary system/post void dribbling Urology Medications: Tamsulosin Blood Thinner: none PVR: 120ml's Neuropsychologist Required: Yes Neuropsychologist Name: electromechanisms design drafter Accompanied by: head of store operations Allergies No Known Allergies Allergy (Verified 05/11/23 09:33) Medication List - Last Reconciled 05/11/23 by KRYSTLE Marquez ipratropium bromide 2 sprays intranasal TID pantoprazole 40 mg PO DAILY selenium sulfide 2.5% 1 appl topical DAILY tamsulosin 0.4 mg PO BEDTIME 30 days HPI HPI Comments History of Present Illness Details Abhijeet is a pleasant 47-year-old male patient of Dr. Ayers. He has a past medical history of depression and is deaf. fur trimmer in to provide translation. He presents to the office today for follow-up. Of note, patient was seen approximately 6 weeks ago at which time the patient was started on Flomax. In discussion with the patient today he reports to have started flomax however then stopped due to increased epigastric refulx he was having. He does report noting and feeling urinary symptoms improved but then also reports nothing they did not. He reports feeling his symptoms vary day to day. His discusses upcoming endoscopy with Dr. Villatoro 07/13. In office urinalysis results reviewed with the patient today. PVR 120 mL. Discussed at length incomplete bladder emptying. Discussed trial low-dose terazosin. Previous workup has included a retroperitoneal ultrasound noting bilateral kidneys with no calculi, lesions, and or hydronephrosis noted. The bladder is well distended and normal. Pre void bladder volume is approximately 450 mL. Postvoid bladder volume is approximately 10 mL. The prostate gland is slightly enlarged and measures approximately 43 mL. He otherwise denies urinary urgency, urinary frequency, incontinence, nocturia, hematuria, dysuria, foul smelling urine, flank pain, fever, and or chills. Patient discusses how he would like electromechanisms design drafter via iPad and preferably a male electromechanisms design drafter as he feels more comfortable. He otherwise denies any other issues or concerns at this time. [facility] Medical History Depression Deaf Surgical History History of esophagogastroduodenoscopy (EGD) Hx of colonoscopy Umbilical hernia (12/18/22) Social History Housing: Apartment Patient Tobacco Use Status: Never used Tobacco e-Cigarette/Vaping Use: Never Used Second Hand Smoke Exposure: No service: No Current occupational status: disabled Current occupational exposures/hazards: No Cognitive needs: Yes Hearing needs: No Vision needs: Yes Review of Systems Const Reports no additional complaints Eyes Reports no additional complaints ENT Reports no additional complaints Card Reports no additional complaints Resp Reports no additional complaints GI Reports as per HPI Reports as per HPI Musc Reports no additional complaints Neuro Reports no additional complaints Psych Reports as per HPI Endo Reports no additional complaints Duke/Lymph Reports no additional complaints Aller/Immun Reports no additional complaints Physical Exam Const General: cooperative, healthy appearing, comfortable, no acute distress, well developed, alert and awake Orientation/consciousness: patient oriented x3 Limitations: no limitations HEENT Head: Yes normal to inspection, Yes normocephalic and Yes atraumatic Ears: other (Deaf; fur trimmer present to assist with translation) Eyes General: appearance normal, both eyes and all related structures Neck Neck: Yes normal visual inspection and Yes trachea midline Chest Chest palpation & inspection: normal inspection of the chest Resp Effort & Inspection: normal respiratory effort and able to speak in complete sentences Cardio Rate: regular rate GI Inspection: Yes normal to inspection General: Yes no CVA tenderness Back/Spine/Pelvis Back: no CVA tenderness Skin General skin exam: no rashes or lesions noted Neuro General: patient oriented x3 Extrem General: Yes normal to inspection Psych Appearance: grossly normal and well kempt Mental Status: mental status grossly normal Speech and movement: Normal speech and movement present and Clear speech present Affect: normal affect Attitude: cooperative Thought process: Normal thought process present Thought content: Normal thought content present Insight: Fair insight present (Psych) Judgement: Fair judgement present (Psych) Office Procedures Post Void Residual Post Residual Void Post Void Residual (PVR): 120 18603-Lelr Void Residual by ultrasound Results AMB Urinalysis, Automated UA Leukoctes 0 Brisa/uL Last Edit by Linda Steel on 05/11/23 09:10 UA Nitrite Negative Last Edit by Linda Steel on 05/11/23 09:10 UA Urobilinogen 0.2 mg/dL Last Edit by Linda Steel on 05/11/23 09:10 UA Protein 0 mg/dL Last Edit by Linda Steel on 05/11/23 09:10 UA pH 7.5 Last Edit by Linda Steel on 05/11/23 09:10 UA Blood 0 Chris/uL Last Edit by Linda Steel on 05/11/23 09:10 UA Specific [place] 1.005 Last Edit by Linda Steel on 05/11/23 09:10 UA Ketone Negative Last Edit by Linda Steel on 05/11/23 09:10 UA Bilirubin 0 mg/dL Last Edit by Linda Steel on 05/11/23 09:10 UA Glucose 0 mg/dL Last Edit by Linda Steel on 05/11/23 09:10 Results Reviewed Results Reviewed: Laboratory Last Values Urine pH (Auto) 7.5 05/11/23 09:09 Specific [place] (Auto) 1.005 05/11/23 09:09 Urine Protein (Auto) 0 mg/dL 05/11/23 09:09 Glucose (UA)(Auto) 0 mg/dL 05/11/23 09:09 Urine Ketones (Auto) Negative 05/11/23 09:09 Urine Blood (Auto) 0 Chris/uL 05/11/23 09:09 Urine Nitrite (Auto) Negative 05/11/23 09:09 Urine Bilirubin (Auto) 0 mg/dL 05/11/23 09:09 Urine Urobilinogen (Auto) 0.2 mg/dL 05/11/23 09:09 Leukocyte Esterase (Auto) 0 Brisa/uL 05/11/23 09:09 Assessment & Plan Assessment & Plan (1) Incomplete bladder emptying: Code(s): R33.9 - Retention of urine, unspecified (2) Weak urinary stream: Code(s): R39.12 - Poor urinary stream Plan In office urinalysis results reviewed with the patient today; as noted above. PVR 120 mL. Discussed at length potential causes and affects of incomplete bladder emptying. Stop Flomax as patient reports increased episodes of GI upset with this medication Will start 2 mg of terazosin at bedtime as discussed and prescribed. Discussed near future in office cystoscopy and/or urodynamics for further assessment evaluation if symptoms persist and/or worsen. Discussed attempting to sit when urinating to assist with relaxing bladder and incomplete bladder emptying. Follow-up in 4-6 weeks with PVR; or sooner with any issues, concerns, and or questions. Orders: Orders AMB Urinalysis Automated Today Z13.9 - Encounter for screening, unspecified AMB Post Void Residual by ultrasound Today R39.12 - Poor urinary stream Medications: New terazosin 2 mg (2 x 1 mg) PO BEDTIME 30 days 60 caps 1RF R39.12 - Poor urinary stream Discontinued tamsulosin Discontinued Reason: Doctor's Order 0.4 mg PO BEDTIME 30 days 30 caps 1RF N40.1 - Benign prostatic hyperplasia with lower urinary tract symptoms, R35.1 - Nocturia Coding Level of Care Code Est Pt Level 4 (68369) Diagnoses Incomplete bladder emptying R33.9 Weak urinary stream R39.12 CPT Codes Post Residual Void - PVR CPT Code: 36150-Oisb Void Residual by ultrasound ([id number])
== END 2023-05-11 10:00 | disposition home or self-care (01) ==
PROVIDERS: PCP Internal Medicine; Visit Provider Nurse Practitioner Family
DX: R33.9 Retention of urine, unspecified (principal); R39.12 Poor urinary stream
CPT/HCPCS: 99214

== ENCOUNTER → 2023-05-11 08:36 | Outpatient (BNVA) | payer OTHER, SELFPAY | PROVIDERS: PCP Internal Medicine; Visit Provider Nurse Practitioner Family | DX: R39.12 Poor urinary stream (principal); R33.9 Retention of urine, unspecified | CPT/HCPCS: 51798; 81003; 99212 ==

== ENCOUNTER 2023-05-21 12:28 | Outpatient (AMB) | payer OTHER, SELFPAY ==
[2023-05-21 12:46] VITALS: BP 130/82; PULSE 82; O2SAT 98; BMI 28.2
--- NOTE | 2023-05-21 12:46 | A.OFFPC_ITS ---
Vital Signs 05/21/23 12:46 Height 5 ft 9 in Weight 191 lb BMI 28.2 BP 130/82 Blood Pressure Location Lt brachial Position Sitting Pulse 82 Pulse Source Pulse Oximeter Pulse Oximetry (%) 98 Oxygen Delivery Method Room Air Intake Visit Reasons: [facility]/septoplasty 06-08 Dyeing Machine Feeder Required: Yes Dyeing Machine Feeder Language: Switcher Name: juan [email or web address] Accompanied by: Self / Same As Patient Allergies No Known Allergies Allergy (Verified 05/21/23 12:52) Medication List - Last Reconciled 05/21/23 by Laci Ayers MD clotrimazole-betamethasone 1-0.05 % 1 appl topical BID 2 weeks ipratropium bromide 2 sprays intranasal TID pantoprazole 40 mg PO DAILY selenium sulfide 2.5% 1 appl topical DAILY terazosin 2 mg (2 x 1 mg) PO BEDTIME 30 days Tobacco use date assessed: 02/19/23 Dental Screening Dental Screen Date: 05/21/23 Did you have a dental visit in the last 12 months?: Yes Did you have a dental problem in the last 6 months where you did not have access to dental care?: No Was dental information given to patient?: Patient has dentist HPI [facility]/septoplasty 06-08 HPI Details having a septoplasty next month; he has GERD on rx; otherwise healthy; he is deaf and unable to speak [facility] Medical History Depression Deaf Surgical History Hx of colonoscopy History of esophagogastroduodenoscopy (EGD) Umbilical hernia (12/18/22) Social History Housing: Apartment Patient Tobacco Use Status: Never used Tobacco e-Cigarette/Vaping Use: Never Used Second Hand Smoke Exposure: No service: No Current occupational status: disabled Current occupational exposures/hazards: No Cognitive needs: Yes Hearing needs: No Vision needs: Yes Questionnaire PHQ-9 Over the last 2 weeks, how often have you been bothered by any of the following problems? 1. Little interest or pleasure in doing things: not at all 2. Feeling down, depressed, or hopeless: not at all 3. Trouble falling or staying asleep, or sleeping too much: not at all 4. Feeling tired or having little energy: not at all 5. Poor appetite or overeating: not at all 6. Feeling bad about yourself - or that you are a failure or have let yourself or your family down: not at all 7. Trouble concentrating on things, such as reading the newspaper or watching television: not at all 8. Moving or speaking so slowly that other people could have noticed. Or the opposite - being so fidgety or restless that you have been moving around a lot more than usual: not at all 9. Thoughts that you would be better off or of hurting yourself in some way: not at all Total score: 0 Depression Screening Interpretation: Negative Depression Screening Done: Yes Source: Developed by Drs. Martín Conroy, Olivia Saldivar, Ramirez Harris and colleagues, with an educational vanesa from [employer]. Thrive Questionnaire Date Thrive assessed: 08/06/22 AUDIT C Alcohol Use Questionnaire (AUDIT-C) 1. How often do you have a drink containing alcohol?: Never 2. How many drinks containing alcohol do you have on a typical day when you are drinking?: 1 or 2 3. How often do you have six or more drinks on one occasion?: Never Total Score: 0 Score Reviewed/Action Taken: Yes MODESTA-7 AMB Questionnaire MODESTA-7 Date MODESTA - 7 assessed: 11/12/22 Source: Developed by Drs. Martín Conroy, Olivia Saldivar, Ramirez Harris and colleagues, with an educational vanesa from [employer]. Review of Systems Const Denies chills, Denies fatigue, Denies headache(s) and Denies weight loss Eyes Denies change in vision, Denies diplopia and Denies eye pain ENT Denies vertigo, Denies dizziness, Denies headache(s) and Denies nasal discharge Card Denies chest pain, Denies rapid heart rate and Denies dyspnea on exertion Resp Denies chest congestion, Denies cough, Denies pain with cough and Denies dyspnea on exertion GI Denies abdominal pain, Denies hematochezia and Denies change in bowel habits Musc Denies myalgias, Denies arthralgias and Denies joint swelling Skin/Breast Denies lesions and Denies unusual bruising Neuro Denies vertigo, Denies dizziness, Denies headache(s) and Denies focal weakness Endo Denies fatigue Physical exam (Primary Care) Vital Signs: Last Vital Signs Pulse 82 05/21/23 12:46 BP 130/82 05/21/23 12:46 Pulse Ox 98 05/21/23 12:46 Oxygen Delivery Method Room Air 05/21/23 12:46 BMI result Body Mass Index 28.2 Tobacco/Smoking Status: Tobacco use Status Tobacco use date assessed 02/19/23 05/21/23 12:54 Patient Tobacco Use Status Never used Tobacco 05/21/23 12:54 e-Cigarette/Vaping Use Never Used 05/21/23 12:54 PHQ-9: PHQ-9 Score PHQ-9: Total score 0 05/21/23 12:57 Depression Screening Interpretation: Negative Thrive Assessment: Date of Thrive Assessment Date Thrive assessed 08/06/22 05/21/23 12:54 Const General: cooperative, healthy appearing and no acute distress Orientation/consciousness: oriented to person, oriented to place and oriented to time HENMT Head: Yes normal to inspection, Yes normocephalic and Yes atraumatic Mouth: Normal oral and palatal mucosa present and tongue normal Throat: Yes posterior oropharynx normal and Yes uvula midline Eyes General: appearance normal, both eyes and all related structures Neck Neck: Yes normal visual inspection, Yes full ROM and Yes no lymphadenopathy Thyroid: Thyroid normal Carotids: normal carotid upstroke Chest Chest palpation & inspection: normal inspection of the chest Resp Effort & Inspection: normal respiratory effort and able to speak in complete sentences Auscultation: clear to auscultation bilaterally Cardio Jugular venous distension: no JVD Palpation: normal PMI Rate: regular rate Rhythm: regular rhythm Heart sounds: S1 normal heart sound present and S2 normal heart sound present GI Inspection: Yes normal to inspection Palpation (GI): Soft to palpation and No hepatosplenomegaly present Auscultation: normal bowel sounds General: Yes no CVA tenderness Back/Spine/Pelvis Back: no CVA tenderness Skin General skin exam: no rashes or lesions noted Neuro General: oriented to person, oriented to place and oriented to time Extrem General: Yes normal to inspection and Yes full ROM Assessment and Plan Assessment & Plan (1) Preop exam for internal medicine: Code(s): Z01.818 - Encounter for other preprocedural examination Plan: low risk for cardiovascular complications; cleared for surgery (2) GERD (gastroesophageal reflux disease): Code(s): K21.9 - Gastro-esophageal reflux disease without esophagitis Plan: stable; same rx (3) Weak urinary stream: Code(s): R39.12 - Poor urinary stream Plan: stable; same rx Medications: New clotrimazole-betamethasone 1-0.05 % 1 appl topical BID 45 grams 2RF 2 weeks Coding Level of Care Code Est Pt Level 4 (33492) Diagnoses Preop exam for internal medicine Z01.818 GERD (gastroesophageal reflux disease) K21.9 Weak urinary stream R39.12
== END 2023-05-21 13:05 | disposition home or self-care (01) ==
PROVIDERS: PCP Internal Medicine; Visit Provider Internal Medicine
DX: Z01.818 Encounter for other preprocedural examination (principal); K21.9 Gastro-esophageal reflux disease without esophagitis; R39.12 Poor urinary stream
CPT/HCPCS: 99214

== ENCOUNTER 2023-05-28 10:55 | Outpatient (REF) | payer OTHER, SELFPAY ==
[2023-05-28 11:07] LABS: MANUAL DIFF FLAG NO
[2023-05-28 11:42] LABS: Basophils Absolute Auto 0.1 X10*3/uL (0.0-0.2); Basophils Percent Auto 0.8 % (0-2); Eosinophils Absolute Auto 0.1 X10*3/uL (0.0-0.4); Eosinophils Percent Auto 0.8 % (0-4); Hematocrit 44.7 % (42.0-52.0); Hemoglobin 15.4 g/dl (14.0-18.0); Imm Gran Abs Auto 0.02 X10*3/uL (0.00-0.03); Imm Gran Pct Auto 0.3 % (0.0-0.4); Lymphocytes Absolute Auto 1.7 X10*3/uL (1.2-4.9); Mean Corpuscular HGB Conc 34.5 g/dl (31.0-36.0); Mean Corpuscular Hemoglobin 31.4 pg (27.0-33.0); Mean Platelet Volume 10.3 fL (9.4-12.4); Monocytes Absolute Auto 0.4 X10*3/uL (0.1-1.2); Monocytes Percent Auto 5.5 % (2-11); Neutrophils Absolute Auto 4.4 x10*3/uL (2.0-8.3); Neutrophils Percent Auto 66.6 % (45-73); Platelet Count 236 X10*3/uL (160-400); Red Blood Count 4.91 X10*6/uL (4.60-5.80); Red Cell Distribution Width 12.1 % (11.0-16.0); White Blood Count 6.6 X10*3/uL (4.8-10.8)
[2023-05-28 12:48] LABS: Anion Gap 12 (12-20); Blood Urea Nitrogen 8 mg/dL (9-16); Calcium 9.7 mg/dL (8.4-10.2); Carbon Dioxide 26 mmol/L (22-29); Chloride 106 mmol/L (96-108); Estimated Glomerular Filt Rate > 60; Glucose Random 112 mg/dL (60-115); Potassium 3.6 mmol/L (3.3-5.1); Sodium 140 mmol/L (135-145)
== END 2023-05-28 10:56 | disposition home or self-care (01) ==
LOC: HO.LAB 10:55
PROVIDERS: PCP Internal Medicine; Visit Provider Internal Medicine
DX: Z01.818 Encounter for other preprocedural examination (principal); D64.9 Anemia, unspecified
CPT/HCPCS: 36415; 80048; 85025

== ENCOUNTER 2023-06-21 09:13 | Outpatient (AMB) | payer OTHER, SELFPAY ==
--- NOTE | 2023-06-21 09:45 | MHC.OFFVIS ---
Intake Intake Visit Reasons: 6w/PVR Intake Note: Patient is present for follow up visit weak urinary system/post void dribbling Urology Medications: D/C Tamsulosin, terazosin (patient never took medication) Blood Thinner: none PVR: 60ml's Environmental Compliance Engineer Required: Yes Environmental Compliance Engineer Name: Yana Accompanied by: educational interpreter Allergies No Known Allergies Allergy (Verified 06/21/23 21:09) Medication List - Last Reconciled 06/21/23 by LUCIAN Marquez- amoxicillin-pot clavulanate 875-125 mg 1 tab PO BID clotrimazole 1% 1 appl topical BID 4 weeks ipratropium bromide 2 sprays intranasal TID pantoprazole 40 mg PO DAILY selenium sulfide 2.5% 1 appl topical DAILY terazosin 2 mg PO BEDTIME 90 days HPI HPI Comments History of Present Illness Details Abhijeet is a pleasant 47-year-old male patient of Dr. Ayers. He has a past medical history of depression and is deaf. deaf interpreter Jose M in to provide translation. He presents to the office today for follow-up. Of note, patient was seen approximately 6 weeks ago at which time he was started on 2 mg of terazosin at bedtime for incomplete bladder emptying. In discussion with the patient today he reports not having started the medication due to his ongoing GI and ENT issues he has been experiencing. He reports to have been following up with [facility] of [facility] for sinus infection and will be undergoing a endoscopy with Dr. Villatoro on 07/13 for his ongoing epigastric reflux. He discusses noting some redness to the head of his penis. In assessment of the patient today penile gland does appear mildly reddened. He does report noting some itchiness and feels at times there is an odor when he pulls back the skin of the penis as the patient is not circumcised. No open areas, lesions, and or odor noted. Patient reports a previous history of STDs. He does report being sexually active however utilizes protection during intercourse with his girlfriend. During previous office visits patient has reported lower urinary tract symptoms of weak urinary stream, urinary hesitancy, urinary urgency, and urinary frequency however he denies these urinary issues at this time. In office urinalysis results reviewed with the patient today. PVR 60 mL. Previous workup has included a retroperitoneal ultrasound noting bilateral kidneys with no calculi, lesions, and or hydronephrosis noted. The bladder is well distended and normal. Pre void bladder volume is approximately 450 mL. Postvoid bladder volume is approximately 10 mL. The prostate gland is slightly enlarged and measures approximately 43 mL. When asked he denies urinary urgency, urinary frequency, incontinence, nocturia, hematuria, dysuria, foul smelling urine, flank pain, fever, and or chills. He otherwise denies any other issues or concerns at this time. [facility] Medical History Depression Deaf Surgical History Hx of colonoscopy History of esophagogastroduodenoscopy (EGD) Umbilical hernia (12/18/22) Housing: Apartment Patient Tobacco Use Status: Never used Tobacco e-Cigarette/Vaping Use: Never Used Second Hand Smoke Exposure: No service: No Current occupational status: disabled Current occupational exposures/hazards: No Cognitive needs: Yes Hearing needs: No Vision needs: Yes Review of Systems Const Reports no additional complaints Eyes Reports no additional complaints ENT Reports no additional complaints Card Reports no additional complaints Resp Reports no additional complaints GI Reports as per HPI Reports as per HPI Musc Reports no additional complaints Neuro Reports no additional complaints Psych Reports as per HPI Endo Reports no additional complaints Duke/Lymph Reports no additional complaints Aller/Immun Reports no additional complaints Physical Exam Const General: cooperative, healthy appearing, comfortable, no acute distress, well developed, alert and awake Orientation/consciousness: patient oriented x3 Limitations: no limitations HEENT Head: Yes normal to inspection, Yes normocephalic and Yes atraumatic Ears: other (Deaf; deaf interpreter present to assist with translation) Eyes General: appearance normal, both eyes and all related structures Neck Neck: Yes normal visual inspection and Yes trachea midline Chest Chest palpation & inspection: normal inspection of the chest Resp Effort & Inspection: normal respiratory effort and able to speak in complete sentences Cardio Rate: regular rate GI Inspection: Yes normal to inspection General: Yes no CVA tenderness Penis: normal penis, uncircumcised and other (per HPI) Meatus: meatus normal Scrotum: scrotum normal Testes: Testes normal Back/Spine/Pelvis Back: no CVA tenderness Skin General skin exam: no rashes or lesions noted Neuro General: patient oriented x3 Extrem General: Yes normal to inspection Psych Appearance: grossly normal and well kempt Mental Status: mental status grossly normal Speech and movement: Normal speech and movement present and Clear speech present Affect: normal affect Attitude: cooperative Thought process: Normal thought process present Thought content: Normal thought content present Insight: Fair insight present (Psych) Judgement: Fair judgement present (Psych) Office Procedures Post Void Residual Post Residual Void Post Void Residual (PVR): 60 [id number] Void Residual by ultrasound Results AMB Urinalysis, Automated UA Leukoctes 0 Brisa/uL Last Edit by [employer] on 06/21/23 10:13 UA Nitrite Negative Last Edit by [employer] on 06/21/23 10:13 UA Urobilinogen 0.2 mg/dL Last Edit by [employer] on 06/21/23 10:13 UA Protein 0 mg/dL Last Edit by [employer] on 06/21/23 10:13 UA pH 7.5 Last Edit by [employer] on 06/21/23 10:13 UA Blood 0 Chris/uL Last Edit by [employer] on 06/21/23 10:13 UA Specific [place] 1.005 Last Edit by [employer] on 06/21/23 10:13 UA Ketone Negative Last Edit by [employer] on 06/21/23 10:13 UA Bilirubin 0 mg/dL Last Edit by [employer] on 06/21/23 10:13 UA Glucose 0 mg/dL Last Edit by [employer] on 06/21/23 10:13 Results Reviewed Results Reviewed: Laboratory Last Values Urine pH (Auto) 7.5 06/21/23 09:50 Specific [place] (Auto) 1.005 06/21/23 09:50 Urine Protein (Auto) 0 mg/dL 06/21/23 09:50 Glucose (UA)(Auto) 0 mg/dL 06/21/23 09:50 Urine Ketones (Auto) Negative 06/21/23 09:50 Urine Blood (Auto) 0 Chris/uL 06/21/23 09:50 Urine Nitrite (Auto) Negative 06/21/23 09:50 Urine Bilirubin (Auto) 0 mg/dL 06/21/23 09:50 Urine Urobilinogen (Auto) 0.2 mg/dL 06/21/23 09:50 Leukocyte Esterase (Auto) 0 Brisa/uL 06/21/23 09:50 Assessment & Plan Assessment & Plan (1) Balanitis: Code(s): N48.1 - Balanitis (2) Incomplete bladder emptying: Code(s): R33.9 - Retention of urine, unspecified Plan In office urinalysis results reviewed with the patient today; will send for microgen STD testing. PVR 60 mL. Start terazosin as discussed and prescribed. Start clotrimazole as discussed and prescribed. Patient currently denies any bothersome urinary issues. Discussed, educated, encouraged on the importance of drinking plenty of water daily. Discussed importance of voiding regularly and not only with sense of urgency. Follow-up in 6 weeks with PVR; or sooner with any issues, concerns, and or questions. Orders: Orders AMB Urinalysis Automated Today Z13.9 - Encounter for screening, unspecified AMB Post Void Residual by ultrasound Today R33.9 - Retention of urine, unspecified Medications: New clotrimazole 1% 1 appl topical BID 4 weeks 28 grams 0RF N48.29 - Other inflammatory disorders of penis Discontinued clotrimazole-betamethasone 1-0.05 % Discontinued Reason: Patient Refused 1 appl topical BID 2 weeks 45 grams 2RF Patient Instructions: The patient had an opportunity to ask questions regarding the treatment plan. All questions were answered. Physical exam, labs, and imaging were discussed and reviewed in detail. As well as risks, benefits, and discussion of treatment choices. No major barriers to understanding were identified. The patient expressed understanding and agreement with the above treatment plan. The patient was made aware they should contact our office by phone for worsening of their current condition, the appearance of new symptoms, or with any questions or concerns. Compliance is encouraged with any medications and follow up testing that is ordered. It is a privilege to be allowed the opportunity to participate in? your urological care.? Again, if you have any questions or concerns If you have any questions or concerns please do not hesitate to contact me. The office is [phone]. This note is constructed using voice recognition software. While every effort has been made to ensure accuracy manager pacu errors may have been included. Yours sincerely, LUCIAN Marquez-BC Coding Level of Care Code Est Pt Level 4 (44252) Diagnoses Balanitis N48.1 Incomplete bladder emptying R33.9 CPT Codes Post Residual Void - PVR CPT Code: 88753-[id number] Void Residual by ultrasound ([id number]) Time Spent (min) 50
== END 2023-06-21 10:54 | disposition home or self-care (01) ==
PROVIDERS: PCP Internal Medicine; Visit Provider Nurse Practitioner Family
DX: N48.1 Balanitis (principal); R33.9 Retention of urine, unspecified
CPT/HCPCS: 99214

== ENCOUNTER → 2023-06-21 09:13 | Outpatient (BNVA) | payer OTHER, SELFPAY | PROVIDERS: PCP Internal Medicine; Visit Provider Nurse Practitioner Family | DX: N48.1 Balanitis (principal); R33.9 Retention of urine, unspecified; L24.A0 Irritant contact dermatitis due to friction or contact with body fluids, unspecified | CPT/HCPCS: 51798; 81003; 99212 ==

== ENCOUNTER 2023-06-22 09:08 | Outpatient (AMB) | payer OTHER, SELFPAY ==
[2023-06-22 09:14] VITALS: BP 132/88; PULSE 117; O2SAT 98
--- NOTE | 2023-06-22 09:14 | A.OFFPC_ITS ---
Vital Signs 06/22/23 09:14 Height 5 ft 9 in BP 132/88 Blood Pressure Location Lt brachial Position Sitting Pulse 117 H Pulse Source Pulse Oximeter Pulse Oximetry (%) 98 Oxygen Delivery Method Room Air Intake Visit Reasons: 4 MONTH F/U Road Oiling Truck Driver Required: Yes Road Oiling Truck Driver Name: talat T Rail Turner: Not Required per policy Accompanied by: Self / Same As Patient Allergies No Known Allergies Allergy (Verified 06/22/23 09:15) Medication List - Last Reconciled 06/22/23 by Laci Ayers MD amoxicillin-pot clavulanate 875-125 mg 1 tab PO BID clotrimazole 1% 1 appl topical BID 4 weeks ipratropium bromide 2 sprays intranasal TID pantoprazole 40 mg PO DAILY selenium sulfide 2.5% 1 appl topical DAILY terazosin 2 mg PO BEDTIME 90 days Tobacco use date assessed: 02/19/23 Dental Screening Dental Screen Date: 06/22/23 Did you have a dental visit in the last 12 months?: Yes Did you have a dental problem in the last 6 months where you did not have access to dental care?: No Was dental information given to patient?: Patient has dentist HPI 4 MONTH F/U HPI Details recently had nasal surgery and doing much better; can breath through nose better PFSH Medical History Depression Deaf Surgical History Hx of colonoscopy History of esophagogastroduodenoscopy (EGD) Umbilical hernia (12/18/22) Housing: Apartment Patient Tobacco Use Status: Never used Tobacco e-Cigarette/Vaping Use: Never Used Second Hand Smoke Exposure: No service: No Current occupational status: disabled Current occupational exposures/hazards: No Cognitive needs: Yes Hearing needs: No Vision needs: Yes Questionnaire Thrive Questionnaire Date Thrive assessed: 08/06/22 MODESTA-7 AMB Questionnaire MODESTA-7 Date MODESTA - 7 assessed: 11/12/22 Source: Developed by Drs. Martín Conroy, Olivia Saldivar, Ramirez Harris and colleagues, with an educational vanesa from [employer]. Review of Systems Const Denies chills, Denies headache(s) and Denies weight loss ENT Denies headache(s) Card Denies chest pain, Denies syncope, Denies irregular heart rhythm and Denies dyspnea Resp Denies chest congestion, Denies cough and Denies dyspnea GI Denies abdominal pain, Denies change in stool character, Denies nausea and Denies vomiting Musc Denies deformity and Denies joint swelling Neuro Denies syncope and Denies headache(s) Physical exam (Primary Care) Vital Signs: Last Vital Signs Pulse 117 H 06/22/23 09:14 BP 132/88 06/22/23 09:14 Pulse Ox 98 06/22/23 09:14 Oxygen Delivery Method Room Air 06/22/23 09:14 Tobacco/Smoking Status: Tobacco use Status Tobacco use date assessed 02/19/23 06/22/23 09:15 Patient Tobacco Use Status Never used Tobacco 06/22/23 09:15 e-Cigarette/Vaping Use Never Used 06/22/23 09:15 Thrive Assessment: Date of Thrive Assessment Date Thrive assessed 08/06/22 06/22/23 09:15 Const General: cooperative, comfortable, no acute distress and alert Neck Neck: Yes no lymphadenopathy Thyroid: Thyroid normal Resp Effort & Inspection: normal respiratory effort Auscultation: clear to auscultation bilaterally Percussion: percussion normal Cardio Jugular venous distension: no JVD Palpation: normal PMI Rate: regular rate Rhythm: regular rhythm Heart sounds: S1 normal heart sound present and S2 normal heart sound present GI Inspection: Yes normal to inspection Palpation (GI): No hepatosplenomegaly present Skin General skin exam: no rashes or lesions noted Extrem General: Yes no clubbing, cyanosis or edema Assessment and Plan Assessment & Plan (1) S/P nasal septoplasty: Code(s): Z98.890 - Other specified postprocedural states Plan: as per ent Coding Level of Care Code Est Pt Level 3 (83283) Diagnoses S/P nasal septoplasty Z98.890
== END 2023-06-22 09:39 | disposition home or self-care (01) ==
PROVIDERS: PCP Internal Medicine; Visit Provider Internal Medicine
DX: Z98.890 Other specified postprocedural states (principal)
CPT/HCPCS: 99213

== ENCOUNTER 2023-07-13 12:04 | Day surgery (SDC) | payer OTHER, SELFPAY ==
--- NOTE | 2023-07-13 12:25 | MHC.SHP ---
Pre-Procedural Eval Section A Date of Service: 07/13/23 Section B Chief Complaint: gerd Relevant Family History (Specify if Yes): No Relevant Social History: None Present Medications: see Short Stay Collaborative assessment Medical History: Significant History (Deaf Depression) History of Previous Operations: Relevant previous surgery/procedure and date(s) (umbilical hernia repair) Allergies: Allergies Allergy/AdvReac Type Severity Reaction Status Date / Time No Known Allergies Allergy Verified 06/22/23 09:15 Review of Systems Sugical H&P ROS: Negative: Constitution, Cardiovascular, Respiratory, Neurological, Psychiatric, Hem-Onc, Allergic/Immunologic, Gastrointestinal, Genitourinary, Musculoskeletal, Integumentary, Endocrine and Eyes/Ears/Nose/Throat Exam Surgical H&P Exam: Normal: HEENT, Normal: Heart, Normal: Lungs, Normal: Extremities, Normal: Abdomen, Normal: Skin and Normal: Neurological Plan Diagnosis/Plan: Unchanged I have reviewed the history and physical and performed a pertinent physical examination on my patient. No changes have occurred unless specified. Time Spent With Patient Time: Total time managing care of this patient today ____ minutes.
--- NOTE | 2023-07-13 12:41 | W.PM.OPN ---
Operative Note Operative Note Date of Service: 07/13/23 Narrative: Procedure Description: EGD Indication: GERd, dysphagia Anesthesia: MAC FLEXIBLE TRANSORAL UPPER GASTROINTESTINAL ENDOSCOPY UPPER ENDOSCOPY Consent: Indications for the procedure and potential complications of bleeding, perforation, reaction to medications and missed diagnosis were discussed with the patient and informed consent was obtained. Instrument: Olympus GIF H 190 J mid size upper endoscope Monitoring: Vital signs and clinical assessment, continuous EKG monitoring, Pulse oximetry, Carbon Dioxide monitoring and blood pressure monitoring were done throughout the procedure. Procedure: The patient was placed in the left lateral decubitis position and pre-procedure medications were administered and a bite block was placed. The endoscope was inserted into the mouth and advanced under direct vision to the third part of duodenum. A careful inspection was made as the upper endoscope was withdrawn including a retroflexed examination of the proximal stomach; Findings and interventions are described below. Findings: Larynx:normal Esophagus: GE junction at 41 cm, diaphragm hiatus at 41 cm, schatzki ring notedm balloon dilation to 20 mm at UES and LES, no tears seen Stomach: Patchy gastric erythema. Biopsies were obtained. Grade 2 flap valve on retroflexed examination of the cardia. Duodenum: bulbar duodenitis bx taken Intervention: Biopsies as noted above, balloon dilation Impression/Findings: duodenitis schatzki ring PLAN: reflux precautions. ensure PPI compliance, and correct timing, if not working change
[2023-07-13 12:50] VITALS: BMI 27.3
[2023-07-13 12:51] VITALS: BP 146/92; PULSE 72; RESP 18; TEMP 36.7; O2SAT 97
--- NOTE | 2023-07-13 13:29 | P.CONAN_ITS ---
HPI - Anesthesia Eval Consult details Narrative: dysphagia [facility] Active Problems Active Problems: All Active Problems (Updated 06/30/23 @ 11:50 by KRYSTLE Marquez) Irritant contact dermatitis due to friction or contact with body fluids, unspecified (Acute) Balanitis (Acute) Preop exam for internal medicine (Acute) Incomplete bladder emptying (Acute) Urinary dribbling (Acute) Weak urinary stream (Acute) GERD (gastroesophageal reflux disease) (Acute) Urinary urgency (Acute) Urinary frequency (Acute) Feeling of incomplete bladder emptying (Acute) Nocturia (Acute) Umbilical hernia (Acute 12/18/22) Dysuria (Acute) High risk sexual behavior (Acute) Cough (Acute) Physical exam (Acute) Past Medical History Medical History Depression Deaf Family History Family history of problems with anesthesia: No Surgical History Surgical History Hx of colonoscopy History of esophagogastroduodenoscopy (EGD) Umbilical hernia (12/18/22) History of Problems with Anesthesia: No Social History Social History Housing: Apartment Patient Tobacco Use Status: Never used Tobacco e-Cigarette/Vaping Use: Never Used Second Hand Smoke Exposure: No Are you DNR?: No Advance Directives: No Advance Directives Information Provided: Yes Nutrition Risks: No Nutritional Risk service: No Current occupational status: disabled Current occupational exposures/hazards: No Cognitive needs: Yes Hearing needs: No Vision needs: Yes Meds Allergies Allergy/AdvReac Type Severity Reaction Status Date / Time No Known Allergies Allergy Verified 07/13/23 12:55 Home Medications Medication Instructions Recorded Confirmed Last Taken Type ipratropium bromide 21 mcg (0.03 2 spray intranasal TID 02/16/23 06/22/23 Unknown History %) nasal spray amoxicillin 875 mg-potassium 1 tab PO BID 06/21/23 06/22/23 Unknown History clavulanate 125 mg tablet Exam Height,Weight and Vital Signs: Height 5 ft 9 in Weight 83.915 kg Last Vital Signs Temp 98.1 F 07/13/23 12:51 Pulse 72 07/13/23 12:51 Resp 18 07/13/23 12:51 BP 146/92 H 07/13/23 12:51 Pulse Ox 97 07/13/23 12:51 O2 Del Method Room Air 07/13/23 12:51 Airway Mallampati Class: III TM Dist: >3cm Neck ROM: Full Loose/Missing/Broken Teeth: No Heart: rrr+s1s2 Lungs: cta b/l Assessment and Plan Assessment Anesthesia Assessment: Anesthesia Plan Discussed Final Anesthetic Review Family History of Problems with Anesthesia: No History of Problems with Anesthesia: No NPO: Yes ASA Class: II Final Preanesthetic Review: No Changes in Pt Med Stat, Meds/Allgs Chart Reviewed, Consent Obtained/Reviewed and Anes Risks/Benef Reviewed Patient Risk: Intermediate Procedure Risk: Intermediate Assessment/Block/Sedation in SS: Assess/Block/Sedation-SS Anesthetic Plan Anesthetic Plan: MAC: and Agree w/ Assess. and Plan Disposition: Standard PACU
[2023-07-13 13:35] VITALS: BP 122/86; PULSE 106; RESP 16; TEMP 36.1; O2SAT 95
[2023-07-13 13:50] VITALS: BP 115/90; PULSE 72; RESP 16; TEMP 37.2; O2SAT 95
== END 2023-07-13 14:29 | disposition home or self-care (01) ==
PROVIDERS: PCP Orthopaedic Surgery; Visit Provider Internal Medicine Gastroenterology
PROC: 0DJ08ZZ Inspection of Upper Intestinal Tract, Via Natural or Artificial Opening Endoscopic (ICD-10-PCS; CPT 43235; principal; 2023-07-13 16:20)
DX: K29.80 Duodenitis without bleeding (principal); K29.70 Gastritis, unspecified, without bleeding; K22.2 Esophageal obstruction; K21.9 Gastro-esophageal reflux disease without esophagitis; R13.10 Dysphagia, unspecified
CPT/HCPCS: 43249; 43239; 88305; 88342; C1726; J2704

== ENCOUNTER → 2023-07-13 12:04 | Outpatient (BNV) | payer OTHER, SELFPAY | PROVIDERS: PCP Orthopaedic Surgery; Visit Provider Internal Medicine Gastroenterology | DX: K21.9 Gastro-esophageal reflux disease without esophagitis (principal); K22.2 Esophageal obstruction; K29.80 Duodenitis without bleeding | CPT/HCPCS: 43239 ==

== ENCOUNTER 2023-08-02 09:16 | Outpatient (AMB) | payer OTHER, SELFPAY ==
--- NOTE | 2023-08-02 09:28 | MHC.OFFVIS ---
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) Intake Note: Patient is present for follow up visit weak urinary system/post void dribbling Urology Medications: terazosin, clotrimazole cream Blood Thinner: none PVR: 31ml's Manager Operations Research Required: Yes Manager Operations Research Name: Yana Accompanied by: early head start director Allergies No Known Allergies Allergy (Verified 08/02/23 20:33) Medication List - Last Reconciled 08/02/23 by KRYSTLE Maruqez clotrimazole 1% 1 appl topical BID 4 weeks ipratropium bromide 2 sprays intranasal TID pantoprazole 40 mg PO BID selenium sulfide 2.5% 1 appl topical DAILY terazosin 2 mg PO BEDTIME 90 days HPI HPI Comments History of Present Illness Details Abhijeet is a pleasant 47-year-old male patient of Dr. Ayers. He has a past medical history of depression and is deaf. lead consultant Jose M in to provide translation. He presents to the office today for follow-up. Of note, patient was seen approximately 6 weeks ago at which time he was started on 2 mg of terazosin at bedtime for incomplete bladder emptying. In discussion with the patient today he reports noting improvement lower urinary tract symptoms while on terazosin 2mg at bedtime. He also reports improvement in balanitis since utilizing steroid cream as prescribed. He does report noting bladder pressure upon wakening however once he utilizes the bathroom pressure subsides. He otherwise offers no urinary issues or concerns. In office urinalysis results reviewed with the patient today. PVR 31ml's. Previous workup has included a retroperitoneal ultrasound noting bilateral kidneys with no calculi, lesions, and or hydronephrosis noted. The bladder is well distended and normal. Pre void bladder volume is approximately 450 mL. Postvoid bladder volume is approximately 10 mL. The prostate gland is slightly enlarged and measures approximately 43 mL. Microgen 06/17-- negative. When asked he denies urinary urgency, urinary frequency, incontinence, nocturia, hematuria, dysuria, foul smelling urine, flank pain, fever, and or chills. He otherwise denies any other issues or concerns at this time. He discusses following up with GI and ENT for his ongoing sinus issues as well as GERD. [facility] Medical History Depression Deaf Surgical History Hx of colonoscopy History of esophagogastroduodenoscopy (EGD) Umbilical hernia (12/18/22) Social History Housing: Apartment Patient Tobacco Use Status: Never used Tobacco e-Cigarette/Vaping Use: Never Used Second Hand Smoke Exposure: No service: No Current occupational status: disabled Current occupational exposures/hazards: No Cognitive needs: Yes Hearing needs: No Vision needs: Yes Review of Systems Const Reports no additional complaints Eyes Reports no additional complaints ENT Reports no additional complaints Card Reports no additional complaints Resp Reports no additional complaints GI Reports as per HPI Reports as per HPI Musc Reports no additional complaints Neuro Reports no additional complaints Psych Reports as per HPI Endo Reports no additional complaints Duke/Lymph Reports no additional complaints Aller/Immun Reports no additional complaints Physical Exam Const General: cooperative, healthy appearing, comfortable, no acute distress, well developed, alert and awake Orientation/consciousness: patient oriented x3 Limitations: no limitations HEENT Head: Yes normal to inspection, Yes normocephalic and Yes atraumatic Ears: other (Deaf; lead consultant present to assist with translation) Eyes General: appearance normal, both eyes and all related structures Neck Neck: Yes normal visual inspection and Yes trachea midline Chest Chest palpation & inspection: normal inspection of the chest Resp Effort & Inspection: normal respiratory effort and able to speak in complete sentences Cardio Rate: regular rate GI Inspection: Yes normal to inspection General: Yes no CVA tenderness Penis: normal penis, uncircumcised and other (per HPI) Meatus: meatus normal Scrotum: scrotum normal Testes: Testes normal Back/Spine/Pelvis Back: no CVA tenderness Skin General skin exam: no rashes or lesions noted Neuro General: patient oriented x3 Extrem General: Yes normal to inspection Psych Appearance: grossly normal and well kempt Mental Status: mental status grossly normal Speech and movement: Normal speech and movement present and Clear speech present Affect: normal affect Attitude: cooperative Thought process: Normal thought process present Thought content: Normal thought content present Insight: Fair insight present (Psych) Judgement: Fair judgement present (Psych) Office Procedures Post Void Residual Post Residual Void Post Void Residual (PVR): 31 [id number] Void Residual by ultrasound Results AMB Urinalysis, Automated UA Leukoctes 15 Brisa/uL Last Edit by Linda Steel on 08/02/23 09:44 UA Nitrite Negative Last Edit by Linda Steel on 08/02/23 09:44 UA Urobilinogen 0.2 mg/dL Last Edit by Linda Steel on 08/02/23 09:44 UA Protein 15 mg/dL Last Edit by Linda Steel on 08/02/23 09:44 UA pH 7.5 Last Edit by Linda Steel on 08/02/23 09:44 UA Blood 10 Chris/uL Last Edit by Linda Steel on 08/02/23 09:44 UA Specific [place] 1.005 Last Edit by Linda Steel on 08/02/23 09:44 UA Ketone Negative Last Edit by Linda Steel on 08/02/23 09:44 UA Bilirubin 0 mg/dL Last Edit by Linda Steel on 08/02/23 09:44 UA Glucose 0 mg/dL Last Edit by Linda Steel on 08/02/23 09:44 Results Reviewed Results Reviewed: Laboratory Last Values Urine pH (Auto) 7.5 08/02/23 09:35 Specific [place] (Auto) 1.005 08/02/23 09:35 Urine Protein (Auto) 15 mg/dL 08/02/23 09:35 Glucose (UA)(Auto) 0 mg/dL 08/02/23 09:35 Urine Ketones (Auto) Negative 08/02/23 09:35 Urine Blood (Auto) 10 Chris/uL 08/02/23 09:35 Urine Nitrite (Auto) Negative 08/02/23 09:35 Urine Bilirubin (Auto) 0 mg/dL 08/02/23 09:35 Urine Urobilinogen (Auto) 0.2 mg/dL 08/02/23 09:35 Leukocyte Esterase (Auto) 15 Brisa/uL 08/02/23 09:35 Assessment & Plan Assessment & Plan (1) Balanitis: Code(s): N48.1 - Balanitis (2) Incomplete bladder emptying: Code(s): R33.9 - Retention of urine, unspecified Plan In office urinalysis results reviewed with the patient today; as noted above PVR 31mL. Continue terazosin as discussed and prescribed. Patient currently denies any bothersome urinary issues. Discussed, educated, encouraged on the importance of drinking plenty of water daily. Discussed importance of voiding regularly and not only with sense of urgency. Follow-up in 3 months with PVR; or sooner with any issues, concerns, and or questions. Orders: Orders AMB Urinalysis Automated Today Z13.9 - Encounter for screening, unspecified AMB Post Void Residual by ultrasound Today R35.1 - Nocturia Patient Instructions: The patient had an opportunity to ask questions regarding the treatment plan. All questions were answered. Physical exam, labs, and imaging were discussed and reviewed in detail. As well as risks, benefits, and discussion of treatment choices. No major barriers to understanding were identified. The patient expressed understanding and agreement with the above treatment plan. The patient was made aware they should contact our office by phone for worsening of their current condition, the appearance of new symptoms, or with any questions or concerns. Compliance is encouraged with any medications and follow up testing that is ordered. It is a privilege to be allowed the opportunity to participate in? your urological care.? Again, if you have any questions or concerns If you have any questions or concerns please do not hesitate to contact me. The office is [phone]. This note is constructed using voice recognition software. While every effort has been made to ensure accuracy roll on worker errors may have been included. Yours sincerely, KRYSTLE Marquez Coding Level of Care Code Est Pt Level 3 (77294) Diagnoses Balanitis N48.1 Incomplete bladder emptying R33.9 CPT Codes Post Residual Void - PVR CPT Code: 63106-Hmcp Void Residual by ultrasound ([id number])
== END 2023-08-02 10:16 | disposition home or self-care (01) ==
PROVIDERS: PCP Internal Medicine; Visit Provider Nurse Practitioner Family
DX: N48.1 Balanitis (principal); R33.9 Retention of urine, unspecified
CPT/HCPCS: 99213

== ENCOUNTER → 2023-08-02 09:16 | Outpatient (BNVA) | payer OTHER, SELFPAY | PROVIDERS: PCP Internal Medicine; Visit Provider Nurse Practitioner Family | DX: K21.9 Gastro-esophageal reflux disease without esophagitis (principal); N48.1 Balanitis; R33.9 Retention of urine, unspecified | CPT/HCPCS: 51798; 81003; 99212 ==

== ENCOUNTER 2023-08-02 14:10 | Outpatient (AMB) | payer OTHER, SELFPAY ==
--- NOTE | 2023-08-02 14:23 | MHC.OFFVIS ---
Intake Vital Signs 08/02/23 14:26 Height 5 ft 9 in Weight 185 lb BMI 27.3 BP 137/76 Blood Pressure Location Lt brachial Position Sitting Pulse 110 H Intake Visit Reasons: S/P EGD; Dr. Villatoro Intake Note: Patient follo up for EGD results. Patient cc: abdominal pain with bloating on and off, diarrhea on and off, and some acid reflex with itchy throat. Truck Service Technician Required: Yes Truck Service Technician Name: sign language Krystyna [id number] Accompanied by: Self / Same As Patient Allergies No Known Allergies Allergy (Verified 08/02/23 14:22) HPI S/P EGD; Dr. Villatoro HPI Details EGD 07/13/23 Impression/Findings: duodenitis schatzki ring with balloon dilation 20 Fr PLAN: reflux precautions. ensure PPI compliance, and correct timing, if not working change path: moderate chronic inflammation at GEJ and active esophagitis in distal esophagus RECAP: He had EGD and colo for abdo pain 2020 mild esophagitis mild gastric erythema normal colonoscopy apart from hemorrhoids path- chronic erosive esophagitis US 11/2021-- normal Labs: 2022-nml HGB, mild raised bili and ALT Prior visits : CTe: no evidence of IBD, umbilical henria and diastasis of recti musc noted referred to urology due to urine issues [facility], which he had done INTERIM: He still has some sx with breakthru, no trouble swallowing, has some water brash no chest pain he is taking pantoprazole 40 mg daily, regularly EXAM: GENERAL: The patient is well developed and nontoxic. VITAL SIGNS:see workflow HEENT: Nonicteric sclerae, PERRLA, EOMI. Oropharynx clear. Moist mucous membranes. Conjunctivae appear well perfused. No thyroid mass. CHEST: Chest wall is nontender. HEART: Regular rate and rhythm without murmurs. LUNGS: Clear to auscultation bilaterally. ABDOMEN: Soft, positive bowel sounds, nontender, no organomegaly.no flank tenderness--moderate umbilical hernia, tender to touch SKIN: dry skin, few scaly patches NEUROLOGIC: Cranial nerves II-XII intact without motor/sensory deficit. psych- nml affect A/P; 1/ GERD, taking PPI daily with some benefit PLAN: 1/ cont PPI and increase to BID dosing --can reduce again after 3 months 2/ may need MV and Vit D --periodic check mag, b12, ferritin, PFSH Medical History Depression Deaf Surgical History Hx of colonoscopy History of esophagogastroduodenoscopy (EGD) Umbilical hernia (12/18/22) Social History Housing: Apartment Patient Tobacco Use Status: Never used Tobacco e-Cigarette/Vaping Use: Never Used Second Hand Smoke Exposure: No service: No Current occupational status: disabled Current occupational exposures/hazards: No Cognitive needs: Yes Hearing needs: No Vision needs: Yes Results AMB Urinalysis, Automated UA Leukoctes 15 Brisa/uL Last Edit by Linda Steel on 08/02/23 09:44 UA Nitrite Negative Last Edit by [email or web address] Steel on 08/02/23 09:44 UA Urobilinogen 0.2 mg/dL Last Edit by Linda Steel on 08/02/23 09:44 UA Protein 15 mg/dL Last Edit by [email or web address] Steel on 08/02/23 09:44 UA pH 7.5 Last Edit by [employer] on 08/02/23 09:44 UA Blood 10 Chris/uL Last Edit by [email or web address] Steel on 08/02/23 09:44 UA Specific [place] 1.005 Last Edit by [employer] on 08/02/23 09:44 UA Ketone Negative Last Edit by [email or web address] Steel on 08/02/23 09:44 UA Bilirubin 0 mg/dL Last Edit by [email or web address] on 08/02/23 09:44 UA Glucose 0 mg/dL Last Edit by [employer] on 08/02/23 09:44 Assessment & Plan Assessment & Plan (1) GERD (gastroesophageal reflux disease): Code(s): K21.9 - Gastro-esophageal reflux disease without esophagitis Plan: A/P; 1/ GERD, taking PPI daily with some benefit PLAN: 1/ cont PPI and increase to BID dosing --can reduce again after 3 months 2/ may need MV and Vit D --periodic check mag, b12, ferritin, Medications: Changed From pantoprazole 40 mg PO DAILY 90 tabs 1RF To pantoprazole 40 mg PO BID 90 tabs 1RF Coding Level of Care Code Est Pt Level 3 (31063) Diagnoses GERD (gastroesophageal reflux disease) K21.9
[2023-08-02 14:26] VITALS: BP 137/76; PULSE 110; BMI 27.3
== END 2023-08-02 14:48 | disposition home or self-care (01) ==
PROVIDERS: PCP Internal Medicine; Visit Provider Internal Medicine Gastroenterology
DX: K21.9 Gastro-esophageal reflux disease without esophagitis (principal)
CPT/HCPCS: 99213

== ENCOUNTER 2023-08-30 10:10 | Outpatient (AMB) | payer OTHER, SELFPAY ==
[2023-08-30 10:36] VITALS: BP 145/95; PULSE 83; BMI 28.8
--- NOTE | 2023-08-30 10:36 | A.OFFVIS_ITS ---
Intake Vital Signs 08/30/23 10:36 Height 5 ft 9 in Weight 195 lb BMI 28.8 BP 145/95 H Blood Pressure Location Rt brachial Position Sitting Pulse 83 Intake Visit Reasons: Surgical site check (itching) Intake Note: Patient s/p repair incarcerated umbilical hernia with Bard mesh on 12-18-22. Patient c/o itch along scar line that comes and goes. Plastic Panel Installer Required: Yes Plastic Panel Installer Name: Shania Mickey THOMPSONfirer marine Accompanied by: manager credit risk Allergies No Known Allergies Allergy (Verified 08/30/23 10:38) HPI HPI Comments History of Present Illness Details Patient presents with his sign manager credit risk. Presents for evaluation his incision. He has had umbilical hernia surgery many months ago. He is having some itchiness. No other wound issues or complaints. He has tolerating a diet. Having regular bowel habits. He is assumed his pre surgery activities. PFSH Medical History Depression Deaf Surgical History Hx of colonoscopy History of esophagogastroduodenoscopy (EGD) Umbilical hernia (12/18/22) Social History Housing: Apartment Patient Tobacco Use Status: Never used Tobacco e-Cigarette/Vaping Use: Never Used Second Hand Smoke Exposure: No service: No Current occupational status: disabled Current occupational exposures/hazards: No Cognitive needs: Yes Hearing needs: No Vision needs: Yes Physical Exam Vital Signs: Last Vital Signs Pulse 83 08/30/23 10:36 BP 145/95 H 08/30/23 10:36 BMI result Body Mass Index 28.8 GI Other: Patient was examined both supine and standing with Valsalva. Abdomen is soft and benign. Umbilical hernia wound is well healed with no evidence of any recurrence or infection. Assessment & Plan Assessment & Plan (1) Dysuria: Code(s): R30.0 - Dysuria Plan Patient was reassured. He had all his questions answered. He will follow-up p.r.n.. Coding Level of Care Code Est Pt Level 3 (95808) Diagnoses Dysuria R30.0
== END 2023-08-30 10:58 | disposition home or self-care (01) ==
PROVIDERS: PCP Internal Medicine; Visit Provider Surgery
DX: R30.0 Dysuria (principal)
CPT/HCPCS: 99213

== ENCOUNTER → 2023-08-30 10:10 | Outpatient (BNVA) | payer OTHER, SELFPAY | PROVIDERS: PCP Internal Medicine; Visit Provider Surgery | DX: Z48.815 Encounter for surgical aftercare following surgery on the digestive system (principal) | CPT/HCPCS: 99212 ==

== ENCOUNTER 2023-11-01 09:03 | Outpatient (AMB) | payer OTHER, SELFPAY ==
--- NOTE | 2023-11-01 09:38 | MHC.OFFVIS ---
Intake Intake Visit Reasons: 3m/PVR(reproducer confirmed) Intake Note: Patient is present for follow up visit weak urinary system/post void dribbling Urology Medications: terazosin Blood Thinner: none PVR: 40ml's Medical Record Transcriber Required: Yes Medical Record Transcriber Name: Yana Accompanied by: reproducer Allergies No Known Allergies Allergy (Verified 11/01/23 10:17) Medication List - Last Reconciled 11/01/23 by KRYSTLE Marquez clotrimazole 1% 1 appl topical BID 4 weeks ipratropium bromide 2 sprays intranasal TID pantoprazole 40 mg PO BID selenium sulfide 2.5% 1 appl topical DAILY terazosin 2 mg PO BEDTIME 90 days HPI HPI Comments History of Present Illness Details Abhijeet is a pleasant 47-year-old male patient of Dr. Ayers. He has a past medical history of depression and is deaf. customer engagement representative Jose M in to provide translation. He presents to the office today for follow-up. In discussion with the patient today he reports noting improvement lower urinary tract symptoms while on terazosin 2mg at bedtime. He does discuss experiencing episodes of bladder pressure and dysuria however describes these episodes as very infrequent. He reports having completed steroid cream as prescribed for balanitis during last office visit and has not noted any benefit in the smell he experiences at times. However discussed purpose of steroid cream is for balanitis and not to assit with hygiene to the penis. He otherwise offers no urinary issues or concerns. In office urinalysis results reviewed with the patient today. PVR 40ml's. Previous workup has included a retroperitoneal ultrasound noting bilateral kidneys with no calculi, lesions, and or hydronephrosis noted. The bladder is well distended and normal. Pre void bladder volume is approximately 450 mL. Postvoid bladder volume is approximately 10 mL. The prostate gland is slightly enlarged and measures approximately 43 mL. Microgen 06/17-- negative. When asked he denies urinary urgency, urinary frequency, incontinence, nocturia, hematuria, dysuria, foul smelling urine, flank pain, fever, and or chills. He otherwise denies any other issues or concerns at this time. He discusses following up with GI and ENT for his ongoing sinus issues as well as GERD. [facility] Medical History Depression Deaf Surgical History Hx of colonoscopy History of esophagogastroduodenoscopy (EGD) Umbilical hernia (12/18/22) Social History Housing: Apartment Patient Tobacco Use Status: Never used Tobacco e-Cigarette/Vaping Use: Never Used Second Hand Smoke Exposure: No service: No Current occupational status: disabled Current occupational exposures/hazards: No Cognitive needs: Yes Hearing needs: No Vision needs: Yes Review of Systems Const Reports no additional complaints Eyes Reports no additional complaints ENT Reports no additional complaints Card Reports no additional complaints Resp Reports no additional complaints GI Reports as per HPI Reports as per HPI Musc Reports no additional complaints Neuro Reports no additional complaints Psych Reports as per HPI Endo Reports no additional complaints Duke/Lymph Reports no additional complaints Aller/Immun Reports no additional complaints Physical Exam Const General: cooperative, healthy appearing, comfortable, no acute distress, well developed, alert and awake Orientation/consciousness: patient oriented x3 Limitations: no limitations HEENT Head: Yes normal to inspection, Yes normocephalic and Yes atraumatic Ears: other (Deaf; customer engagement representative present to assist with translation) Eyes General: appearance normal, both eyes and all related structures Neck Neck: Yes normal visual inspection and Yes trachea midline Chest Chest palpation & inspection: normal inspection of the chest Resp Effort & Inspection: normal respiratory effort and able to speak in complete sentences Cardio Rate: regular rate GI Inspection: Yes normal to inspection General: Yes no CVA tenderness Penis: normal penis, uncircumcised and other (per HPI) Meatus: meatus normal Scrotum: scrotum normal Testes: Testes normal Back/Spine/Pelvis Back: no CVA tenderness Skin General skin exam: no rashes or lesions noted Neuro General: patient oriented x3 Extrem General: Yes normal to inspection Psych Appearance: grossly normal and well kempt Mental Status: mental status grossly normal Speech and movement: Normal speech and movement present and Clear speech present Affect: normal affect Attitude: cooperative Thought process: Normal thought process present Thought content: Normal thought content present Insight: Fair insight present (Psych) Judgement: Fair judgement present (Psych) Office Procedures Post Void Residual Post Residual Void Post Void Residual (PVR): 40 [id number] Void Residual by ultrasound Results AMB Urinalysis, Automated UA Leukoctes 0 Brisa/uL Last Edit by Linda Steel on 11/01/23 09:51 UA Nitrite Negative Last Edit by Linda Steel on 11/01/23 09:51 UA Urobilinogen 0.2 mg/dL Last Edit by Linda Steel on 11/01/23 09:51 UA Protein 0 mg/dL Last Edit by Linda Steel on 11/01/23 09:51 UA pH 7.0 Last Edit by Linad Steel on 11/01/23 09:51 UA Blood 0 Chris/uL Last Edit by Linda Steel on 11/01/23 09:51 UA Specific [place] 1.010 Last Edit by Linda Setel on 11/01/23 09:51 UA Ketone Negative Last Edit by Linda Steel on 11/01/23 09:51 UA Bilirubin 0 mg/dL Last Edit by Linda Steel on 11/01/23 09:51 UA Glucose 0 mg/dL Last Edit by Linda Steel on 11/01/23 09:51 Results Reviewed Results Reviewed: Laboratory Last Values Urine pH (Auto) 7.0 11/01/23 09:49 Specific [place] (Auto) 1.010 11/01/23 09:49 Urine Protein (Auto) 0 mg/dL 11/01/23 09:49 Glucose (UA)(Auto) 0 mg/dL 11/01/23 09:49 Urine Ketones (Auto) Negative 11/01/23 09:49 Urine Blood (Auto) 0 Chris/uL 11/01/23 09:49 Urine Nitrite (Auto) Negative 11/01/23 09:49 Urine Bilirubin (Auto) 0 mg/dL 11/01/23 09:49 Urine Urobilinogen (Auto) 0.2 mg/dL 11/01/23 09:49 Leukocyte Esterase (Auto) 0 Brisa/uL 11/01/23 09:49 Assessment & Plan Assessment & Plan (1) Balanitis: Code(s): N48.1 - Balanitis (2) Incomplete bladder emptying: Code(s): R33.9 - Retention of urine, unspecified Plan In office urinalysis results reviewed with the patient today; as noted above PVR 40mL. Continue terazosin as discussed and prescribed. Patient currently denies any bothersome urinary issues. Reassurance provided. Discussed appropriate cleansing of area. Pelvic floor exercises discussed Discussed, educated, encouraged on the importance of drinking plenty of water daily. Discussed importance of voiding regularly and not only with sense of urgency. Follow-up in 6 months with PVR; or sooner with any issues, concerns, and or questions. Orders: Orders AMB Urinalysis Automated Today Z13.9 - Encounter for screening, unspecified AMB Post Void Residual by ultrasound Today R33.9 - Retention of urine, unspecified Patient Instructions: The patient had an opportunity to ask questions regarding the treatment plan. All questions were answered. Physical exam, labs, and imaging were discussed and reviewed in detail. As well as risks, benefits, and discussion of treatment choices. No major barriers to understanding were identified. The patient expressed understanding and agreement with the above treatment plan. The patient was made aware they should contact our office by phone for worsening of their current condition, the appearance of new symptoms, or with any questions or concerns. Compliance is encouraged with any medications and follow up testing that is ordered. It is a privilege to be allowed the opportunity to participate in? your urological care.? Again, if you have any questions or concerns If you have any questions or concerns please do not hesitate to contact me. The office is [phone]. This note is constructed using voice recognition software. While every effort has been made to ensure accuracy cost accounting analyst errors may have been included. Yours sincerely, KRYSTLE Marquez Coding Level of Care Code Est Pt Level 4 (39204) Diagnoses Balanitis N48.1 Incomplete bladder emptying R33.9 CPT Codes Post Residual Void - PVR CPT Code: 38312-Gocg Void Residual by ultrasound ([id number]) Time Spent (min) 35
== END 2023-11-01 10:15 | disposition home or self-care (01) ==
PROVIDERS: PCP Internal Medicine; Visit Provider Nurse Practitioner Family
DX: N48.1 Balanitis (principal); R33.9 Retention of urine, unspecified; Z13.9 Encounter for screening, unspecified
CPT/HCPCS: 99214

== ENCOUNTER → 2023-11-01 09:03 | Outpatient (BNVA) | payer OTHER, SELFPAY | PROVIDERS: PCP Internal Medicine; Visit Provider Nurse Practitioner Family | DX: N48.1 Balanitis (principal); R33.9 Retention of urine, unspecified | CPT/HCPCS: 51798; 81003; 99212 ==

== ENCOUNTER 2023-11-08 08:23 | Outpatient (AMB) | payer OTHER, SELFPAY ==
[2023-11-08 08:32] VITALS: BP 132/80; PULSE 99; O2SAT 100; BMI 29.7
--- NOTE | 2023-11-08 08:32 | MHC.PC.OV ---
Vital Signs 11/08/23 08:32 Height 5 ft 9 in Weight 201 lb BMI 29.7 BP 132/80 Blood Pressure Location Lt brachial Position Sitting Pulse 99 Pulse Source Pulse Oximeter Pulse Oximetry (%) 100 Oxygen Delivery Method Room Air Intake Visit Reasons: F/U for deaf paperwork Intake Note: Patient is here to follow up. Patient Access Manager Required: Yes Patient Access Manager Language: Albanian Sign Language Allergies No Known Allergies Allergy (Verified 11/08/23 08:36) Tobacco use date assessed: 11/08/23 Dental Screening Dental Screen Date: 11/08/23 Did you have a dental visit in the last 12 months?: Yes Did you have a dental problem in the last 6 months where you did not have access to dental care?: No Was dental information given to patient?: Patient has dentist HPI F/U for deaf paperwork HPI Details needs a letter stating he is deaf; he has congenital deafness PFSH Medical History Depression Deaf Surgical History Hx of colonoscopy History of esophagogastroduodenoscopy (EGD) Umbilical hernia (12/18/22) Social History Housing: Apartment Patient Tobacco Use Status: Never used Tobacco e-Cigarette/Vaping Use: Never Used Second Hand Smoke Exposure: No service: No Current occupational status: disabled Current occupational exposures/hazards: No Cognitive needs: Yes Hearing needs: No Vision needs: Yes Questionnaire PHQ-9 Over the last 2 weeks, how often have you been bothered by any of the following problems? 1. Little interest or pleasure in doing things: not at all 2. Feeling down, depressed, or hopeless: not at all 3. Trouble falling or staying asleep, or sleeping too much: not at all 4. Feeling tired or having little energy: not at all 5. Poor appetite or overeating: not at all 6. Feeling bad about yourself - or that you are a failure or have let yourself or your family down: not at all 7. Trouble concentrating on things, such as reading the newspaper or watching television: not at all 8. Moving or speaking so slowly that other people could have noticed. Or the opposite - being so fidgety or restless that you have been moving around a lot more than usual: not at all 9. Thoughts that you would be better off or of hurting yourself in some way: not at all Total score: 0 Depression Screening Interpretation: Negative Depression Screening Done: Yes Source: Developed by Drs. Martín Conroy, Olivia Saldivar, Ramirez Harris and colleagues, with an educational vanesa from [employer]. Thrive Questionnaire Date Thrive assessed: 11/08/23 I am a: Patient What is your living situation today?: I have a steady place to live Within the past 12 months, did the food you bought not last and you didn't have the money to get more?: Never true Within the past 12 months, did you worry whether your food would run out before you got money to buy more?: Never true Do you have trouble paying for medicines?: No Do you have trouble getting transportation to medical appointments?: No Do you have trouble paying your heating and electricity bill?: No Do you have trouble taking care of your child, family member or friend?: No Do you have trouble with day-to-day activities such as bathing, preparing meals, shopping, managing finances, etc.?: No Are you currently unemployed and looking for a job?: No Are you interested in more education?: No Please select the resources that you would like help with: None Currently or been in a relationship where the following occur: no concerns reported THRIVE Score: 0 AUDIT C Alcohol Use Questionnaire (AUDIT-C) 1. How often do you have a drink containing alcohol?: Never 2. How many drinks containing alcohol do you have on a typical day when you are drinking?: 1 or 2 3. How often do you have six or more drinks on one occasion?: Never Total Score: 0 Score Reviewed/Action Taken: Yes MODESTA-7 AMB Questionnaire MODESTA-7 Date MODESTA - 7 assessed: 11/08/23 Source: Developed by Drs. Martín Conroy, Ramirez Narayanan and colleagues, with an educational vanesa from [employer]. Review of Systems Const Denies chills, Denies headache(s) and Denies weight loss ENT Denies headache(s) Card Denies chest pain, Denies syncope, Denies irregular heart rhythm and Denies dyspnea Resp Denies chest congestion, Denies cough and Denies dyspnea GI Denies abdominal pain, Denies change in stool character, Denies nausea and Denies vomiting Musc Denies deformity and Denies joint swelling Neuro Denies syncope and Denies headache(s) Physical exam (Primary Care) Vital Signs: Last Vital Signs Pulse 99 11/08/23 08:32 BP 132/80 11/08/23 08:32 Pulse Ox 100 11/08/23 08:32 Oxygen Delivery Method Room Air 11/08/23 08:32 BMI result Body Mass Index 29.7 Tobacco/Smoking Status: Tobacco use Status Tobacco use date assessed 11/08/23 11/08/23 08:33 Patient Tobacco Use Status Never used Tobacco 11/08/23 08:33 e-Cigarette/Vaping Use Never Used 11/08/23 08:33 PHQ-9: PHQ-9 Score PHQ-9: Total score 0 11/08/23 08:40 Depression Screening Interpretation: Negative Thrive Assessment: Date of Thrive Assessment Date Thrive assessed 11/08/23 11/08/23 08:33 Currently or been in a relationship where the following occur: no concerns reported Const General: cooperative, comfortable, no acute distress and alert Neck Neck: Yes no lymphadenopathy Thyroid: Thyroid normal Resp Effort & Inspection: normal respiratory effort Auscultation: clear to auscultation bilaterally Percussion: percussion normal Cardio Jugular venous distension: no JVD Palpation: normal PMI Rate: regular rate Rhythm: regular rhythm Heart sounds: S1 normal heart sound present and S2 normal heart sound present GI Inspection: Yes normal to inspection Palpation (GI): No hepatosplenomegaly present Skin General skin exam: no rashes or lesions noted Extrem General: Yes no clubbing, cyanosis or edema Assessment and Plan Assessment & Plan (1) Congenital deafness: Code(s): H90.5 - Unspecified sensorineural hearing loss Plan: letter given Coding Level of Care Code Est Pt Level 3 (14745) Diagnoses Congenital deafness H90.5
== END 2023-11-08 08:57 | disposition home or self-care (01) ==
PROVIDERS: PCP Internal Medicine; Visit Provider Internal Medicine
DX: H90.5 Unspecified sensorineural hearing loss (principal)
CPT/HCPCS: 99213

== ENCOUNTER 2023-12-06 13:16 | Outpatient (AMB) | payer OTHER, SELFPAY ==
--- NOTE | 2023-12-06 13:19 | A.OFFVIS_ITS ---
Vital Signs 12/06/23 13:21 Height 5 ft 9 in Weight 202 lb 13.204 oz BMI 29.9 BP 137/89 Blood Pressure Location Lt brachial Position Sitting Pulse 83 Intake Visit Reasons: 3 month follow up R/S from 10/31 Intake Note: Abhijeet presents in the office as a 3 month follow up. CC: He states that the medication in his nose makes it very dry and he takes a medication that makes him feel very bloated. Pantoprazole is the one he is referring to. He also states that the Terasozin works when he eats and he has discomfort in his stomach he will take it after eating and it feels a little better. Financial Compliance Examiner Required: Yes Financial Compliance Examiner Name: Isidra [id number] Allergies No Known Allergies Allergy (Verified 12/06/23 13:24) HPI HPI 3 month follow up R/S from 10/31: Details: 48 yr old m here for f/u RECAP: He had EGD and colo for abdo pain 2019 mild esophagitis mild gastric erythema normal colonoscopy apart from hemorrhoids path- chronic erosive esophagitis rept EGD 06/2023 balloon dilation path: moderate chronic inflammation at GEJ and active esophagitis in distal esophagus other data: US 11/2021-- normal Labs: 2022-nml HGB, mild raised bili and ALT Prior visits : CTe: no evidence of IBD, umbilical henria and diastasis of recti musc noted referred to urology due to urine issues referred to surgery for umbilical hernia repair, which he had done INTERIM: He has some mild bloating back muscles are tight he has been taking PPI dry mouth swallowing is normal occ dry nose as well EXAM: GENERAL: The patient is well developed and nontoxic. VITAL SIGNS:see workflow HEENT: Nonicteric sclerae, PERRLA, EOMI. Oropharynx clear. Moist mucous membranes. Conjunctivae appear well perfused. No thyroid mass. CHEST: Chest wall is nontender. HEART: Regular rate and rhythm without murmurs. LUNGS: Clear to auscultation bilaterally. ABDOMEN: Soft, positive bowel sounds, nontender, no organomegaly.no flank tenderness--moderate umbilical hernia, tender to touch SKIN: nml NEUROLOGIC: Cranial nerves II-XII intact without motor/sensory deficit. psych- nml affect A/P; 1/ GERD, taking PPI, no issues with swallowing now PLAN: 1/ cont PPI and reduce to OD 2/ recommended to take daily MV 3/ he is on terazosin, maybe causing the dryness, will d/w his PCP 4/ back pain seems mechanical, no urine sx--advised to check his mattress, if urine sx develop then US and UA , PFSH Medical History Depression Deaf Surgical History Hx of colonoscopy History of esophagogastroduodenoscopy (EGD) Umbilical hernia (12/18/22) Social History Housing: Apartment Patient Tobacco Use Status: Never used Tobacco e-Cigarette/Vaping Use: Never Used Second Hand Smoke Exposure: No service: No Current occupational status: disabled Current occupational exposures/hazards: No Cognitive needs: Yes Hearing needs: No Vision needs: Yes Physical Exam Vital Signs: Last Vital Signs Pulse 83 12/06/23 13:21 BP 137/89 12/06/23 13:21 BMI result Body Mass Index 29.9 Assessment & Plan Assessment & Plan (1) GERD (gastroesophageal reflux disease): Code(s): K21.9 - Gastro-esophageal reflux disease without esophagitis Category: Medical Plan: see above Medications: Changed From pantoprazole 40 mg PO BID 180 tabs 3RF To pantoprazole 40 mg PO QAM 180 tabs 3RF Coding Level of Care Code Est Pt Level 3 (89095) Diagnoses GERD (gastroesophageal reflux disease) K21.9
[2023-12-06 13:21] VITALS: BP 137/89; PULSE 83; BMI 29.9
== END 2023-12-06 13:53 | disposition home or self-care (01) ==
PROVIDERS: PCP Internal Medicine; Visit Provider Internal Medicine Gastroenterology
DX: K21.9 Gastro-esophageal reflux disease without esophagitis (principal)
CPT/HCPCS: 99213

== ENCOUNTER → 2023-12-06 13:16 | Outpatient (BNVA) | payer OTHER, SELFPAY | PROVIDERS: PCP Internal Medicine; Visit Provider Internal Medicine Gastroenterology | DX: K21.9 Gastro-esophageal reflux disease without esophagitis (principal) | CPT/HCPCS: 99212 ==

== ENCOUNTER 2024-05-02 09:15 | Outpatient (AMB) | payer OTHER, SELFPAY ==
--- NOTE | 2024-05-02 09:18 | A.OFFVIS_ITS ---
Intake Visit Reasons: 6m/PVR Intake Note: Patient is present for follow up visit weak urinary system/post void dribbling Urology Medications: terazosin Blood Thinner: none PVR: 63ml's Stagecraft Professor Required: Yes Stagecraft Professor Name: Yana Accompanied by: lockstitch back maker Allergies No Known Allergies Allergy (Verified 05/02/24 10:04) Medication List - Last Reconciled 05/02/24 by KRYSTLE Marquez budesonide mg inhalation clotrimazole 1% 1 appl topical BID 4 weeks ipratropium bromide 2 sprays intranasal TID pantoprazole 40 mg PO QAM selenium sulfide 2.5% 1 appl topical DAILY terazosin 2 mg PO BEDTIME 90 days HPI Comments Details: Abhijeet is a pleasant 48-year-old male patient of Dr. Ayers. He has a past medical history of depression and is deaf. faucets assembler Jose M in to provide translation. He presents to the office today for follow-up. In discussion with the patient today he reports noting improvement lower urinary tract symptoms while on terazosin 2mg at bedtime. He reports feeling at times urinary symptoms very as well as his GI issues however he currently feels overall he is doing well. He reports compliance with 2 mg of terazosin daily. In office urinalysis results reviewed with the patient today. PVR 63 mL. Previous workup has included a retroperitoneal ultrasound noting bilateral kidneys with no calculi, lesions, and or hydronephrosis noted. The bladder is well distended and normal. Pre void bladder volume is approximately 450 mL. Postvoid bladder volume is approximately 10 mL. The prostate gland is slightly enlarged and measures approximately 43 mL. Microgen 06/17-- negative. When asked he denies urinary urgency, urinary frequency, incontinence, nocturia, hematuria, dysuria, foul smelling urine, flank pain, fever, and or chills. He otherwise denies any other issues or concerns at this time. He discusses following up with GI and ENT for his ongoing sinus issues as well as GERD. [facility] Medical History Depression Deaf Surgical History Hx of colonoscopy History of esophagogastroduodenoscopy (EGD) Umbilical hernia (12/18/22) Social History Housing: Apartment Patient Tobacco Use Status: Never used Tobacco e-Cigarette/Vaping Use: Never Used Second Hand Smoke Exposure: No service: No Current occupational status: disabled Current occupational exposures/hazards: No Cognitive needs: Yes Hearing needs: No Vision needs: Yes Review of Systems Const Reports no additional complaints Eyes Reports no additional complaints ENT Reports no additional complaints Card Reports no additional complaints Resp Reports no additional complaints GI Reports as per HPI Reports as per HPI Musc Reports no additional complaints Neuro Reports no additional complaints Psych Reports as per HPI Endo Reports no additional complaints Duke/Lymph Reports no additional complaints Aller/Immun Reports no additional complaints Physical Exam Const General: cooperative, healthy appearing, comfortable, no acute distress, well developed, alert and awake Orientation/consciousness: patient oriented x3 Limitations: no limitations HEENT Head: Yes normal to inspection, Yes normocephalic and Yes atraumatic Ears: other (Deaf; faucets assembler present to assist with translation) Eyes General: appearance normal, both eyes and all related structures Neck Neck: Yes normal visual inspection and Yes trachea midline Chest Chest palpation & inspection: normal inspection of the chest Resp Effort & Inspection: normal respiratory effort and able to speak in complete sentences Cardio Rate: regular rate GI Inspection: Yes normal to inspection General: Yes no CVA tenderness Back/Spine/Pelvis Back: no CVA tenderness Skin General skin exam: no rashes or lesions noted Neuro General: patient oriented x3 Extrem General: Yes normal to inspection Psych Appearance: grossly normal and well kempt Mental Status: mental status grossly normal Speech and movement: Normal speech and movement present and Clear speech present Affect: normal affect Attitude: cooperative Thought process: Normal thought process present Thought content: Normal thought content present Insight: Fair insight present (Psych) Judgement: Fair judgement present (Psych) Office Procedures Post Void Residual Post Residual Void Post Void Residual (PVR): 63 [id number] Void Residual by ultrasound Results AMB Urinalysis, Automated UA Leukoctes 0 Brisa/uL Last Edit by Linda Steel on 05/02/24 09:28 UA Nitrite Last Edit by Linda Steel on 05/02/24 09:28 UA Urobilinogen 0.2 mg/dL Last Edit by Linda Steel on 05/02/24 09:28 UA Protein 0 mg/dL Last Edit by Linda Steel on 05/02/24 09:28 UA pH 6.0 Last Edit by Linda Steel on 05/02/24 09:28 UA Blood 0 Chris/uL Last Edit by Linda Steel on 05/02/24 09:28 UA Specific [place] 1.015 Last Edit by Linda Steel on 05/02/24 09:28 UA Ketone Last Edit by Linda Steel on 05/02/24 09:28 UA Bilirubin 0 mg/dL Last Edit by Linda Steel on 05/02/24 09:28 UA Glucose 0 mg/dL Last Edit by Linda Steel on 05/02/24 09:28 Results Reviewed Results Reviewed: Laboratory Last Values Urine pH (Auto) 6.0 05/02/24 09:22 Specific [place] (Auto) 1.015 05/02/24 09:22 Urine Protein (Auto) 0 mg/dL 05/02/24 09:22 Glucose (UA)(Auto) 0 mg/dL 05/02/24 09:22 Urine Blood (Auto) 0 Chris/uL 05/02/24 09:22 Urine Bilirubin (Auto) 0 mg/dL 05/02/24 09:22 Urine Urobilinogen (Auto) 0.2 mg/dL 05/02/24 09:22 Leukocyte Esterase (Auto) 0 Brisa/uL 05/02/24 09:22 Assessment & Plan Assessment & Plan (1) Incomplete bladder emptying: Code(s): R33.9 - Retention of urine, unspecified Category: Medical Plan In office urinalysis results reviewed with the patient today; as noted above PVR 63mL. Continue terazosin as discussed and prescribed. Patient currently denies any bothersome urinary issues. Discussed, educated, encouraged on the importance of drinking plenty of water daily. Discussed importance of voiding regularly and not only with sense of urgency. Follow-up in 6 months with PVR; or sooner with any issues, concerns, and or questions. Orders: Orders AMB Urinalysis Automated Today Z13.9 - Encounter for screening, unspecified AMB Post Void Residual by ultrasound Today N39.43 - Post-void dribbling Patient Instructions: The patient had an opportunity to ask questions regarding the treatment plan. All questions were answered. Physical exam, labs, and imaging were discussed and reviewed in detail. As well as risks, benefits, and discussion of treatment choices. No major barriers to understanding were identified. The patient expressed understanding and agreement with the above treatment plan. The patient was made aware they should contact our office by phone for worsening of their current condition, the appearance of new symptoms, or with any questions or concerns. Compliance is encouraged with any medications and follow up testing that is ordered. It is a privilege to be allowed the opportunity to participate in? your urological care.? Again, if you have any questions or concerns If you have any questions or concerns please do not hesitate to contact me. The office is [phone]. This note is constructed using voice recognition software. While every effort has been made to ensure accuracy paving contractor errors may have been included. Yours sincerely, KRYSTLE Marquez Coding Level of Care Code Est Pt Level 3 (85944) Complex EM visit Add On G2211 Diagnoses Incomplete bladder emptying R33.9 CPT Codes Post Residual Void - PVR CPT Code: 03334-Zytz Void Residual by ultrasound ([id number])
== END 2024-05-02 10:05 | disposition home or self-care (01) ==
PROVIDERS: PCP Internal Medicine; Visit Provider Nurse Practitioner Family
DX: R33.9 Retention of urine, unspecified (principal); Z13.9 Encounter for screening, unspecified
CPT/HCPCS: 99213; G2211

== ENCOUNTER → 2024-05-02 09:15 | Outpatient (BNVA) | payer OTHER, SELFPAY | PROVIDERS: PCP Internal Medicine; Visit Provider Nurse Practitioner Family | DX: R33.9 Retention of urine, unspecified (principal) | CPT/HCPCS: 51798; 81003; 99212 ==

== ENCOUNTER 2024-05-10 09:08 | Outpatient (AMB) | payer OTHER, SELFPAY ==
[2024-05-10 09:14] VITALS: BP 132/86; PULSE 90; O2SAT 96; BMI 29.8
--- NOTE | 2024-05-10 09:14 | A.OFFPC_ITS ---
Vital Signs 05/10/24 09:14 Height 5 ft 9 in Weight 202 lb BMI 29.8 BP 132/86 Blood Pressure Location Lt brachial Position Sitting Pulse 90 Pulse Source Pulse Oximeter Pulse Oximetry (%) 96 Oxygen Delivery Method Room Air Intake Visit Reasons: 6mth f/u Bankruptcy Paralegal Required: Yes Bankruptcy Paralegal Name: Kaia [id number] Accompanied by: Self / Same As Patient Allergies No Known Allergies Allergy (Verified 05/10/24 09:19) Medication List - Last Reconciled 05/10/24 by Laci Ayers MD budesonide mg inhalation ipratropium bromide 2 sprays intranasal TID pantoprazole 40 mg PO QAM terazosin 2 mg PO BEDTIME 90 days Tobacco use date assessed: 11/08/23 Dental Screening Dental Screen Date: 11/08/23 HPI 6mth f/u HPI Details has gerd on rx; sees gi; compliant [facility] Medical History Depression Deaf Surgical History Hx of colonoscopy History of esophagogastroduodenoscopy (EGD) Umbilical hernia (12/18/22) Social History Housing: Apartment Patient Tobacco Use Status: Never used Tobacco Tobacco use type: Cigarette e-Cigarette/Vaping Use: Never Used Second Hand Smoke Exposure: No service: No Current occupational status: disabled Current occupational exposures/hazards: No Cognitive needs: Yes Hearing needs: No Vision needs: Yes Questionnaire PHQ-9 Over the last 2 weeks, how often have you been bothered by any of the following problems? 1. Little interest or pleasure in doing things: not at all 2. Feeling down, depressed, or hopeless: not at all 3. Trouble falling or staying asleep, or sleeping too much: not at all 4. Feeling tired or having little energy: not at all 5. Poor appetite or overeating: not at all 6. Feeling bad about yourself - or that you are a failure or have let yourself or your family down: not at all 7. Trouble concentrating on things, such as reading the newspaper or watching television: not at all 8. Moving or speaking so slowly that other people could have noticed. Or the opposite - being so fidgety or restless that you have been moving around a lot more than usual: not at all 9. Thoughts that you would be better off or of hurting yourself in some way: not at all Total score: 0 Depression Screening Interpretation: Negative Depression Screening Done: Yes Source: Developed by Drs. Martín Conroy, Olivia Saldivar, Ramirez Harris and colleagues, with an educational vanesa from [employer]. Thrive Questionnaire Date Thrive assessed: 11/08/23 Are you currently unemployed and looking for a job?: I choose not to answer this question AUDIT C Alcohol Use Questionnaire (AUDIT-C) 1. How often do you have a drink containing alcohol?: Never 2. How many drinks containing alcohol do you have on a typical day when you are drinking?: 1 or 2 3. How often do you have six or more drinks on one occasion?: Never Total Score: 0 Score Reviewed/Action Taken: Yes MODESTA-7 AMB Questionnaire MODESTA-7 Date MODESTA - 7 assessed: 11/08/23 Source: Developed by Drs. Martín Conroy, Olivia Saldivar, Ramirez Harris and colleagues, with an educational vanesa from [employer]. Review of Systems Const Denies chills, Denies headache(s) and Denies weight loss ENT Denies headache(s) Card Denies chest pain, Denies syncope, Denies irregular heart rhythm and Denies dyspnea Resp Denies chest congestion, Denies cough and Denies dyspnea GI Denies abdominal pain, Denies change in stool character, Denies nausea and Denies vomiting Musc Denies deformity and Denies joint swelling Neuro Denies syncope and Denies headache(s) Physical exam (Primary Care) Vital Signs: Last Vital Signs Pulse 90 05/10/24 09:14 BP 132/86 05/10/24 09:14 Pulse Ox 96 05/10/24 09:14 Oxygen Delivery Method Room Air 05/10/24 09:14 BMI result Body Mass Index 29.8 Tobacco/Smoking Status: Tobacco use Status Tobacco use date assessed 11/08/23 05/10/24 09:15 Patient Tobacco Use Status Never used Tobacco 05/10/24 09:15 Tobacco use type Cigarette 05/10/24 09:15 e-Cigarette/Vaping Use Never Used 05/10/24 09:15 PHQ-9: PHQ-9 Score PHQ-9: Total score 0 05/10/24 09:15 Depression Screening Interpretation: Negative Thrive Assessment: Date of Thrive Assessment Date Thrive assessed 11/08/23 05/10/24 09:15 Const General: cooperative, comfortable, no acute distress and alert Neck Neck: Yes no lymphadenopathy Thyroid: Thyroid normal Resp Effort & Inspection: normal respiratory effort Auscultation: clear to auscultation bilaterally Percussion: percussion normal Cardio Jugular venous distension: no JVD Palpation: normal PMI Rate: regular rate Rhythm: regular rhythm Heart sounds: S1 normal heart sound present and S2 normal heart sound present GI Inspection: Yes normal to inspection Palpation (GI): No hepatosplenomegaly present Skin General skin exam: no rashes or lesions noted Extrem General: Yes no clubbing, cyanosis or edema Coding Level of Care Code Est Pt Level 3 (30392) Diagnoses GERD (gastroesophageal reflux disease) K21.9 Assessment & Plan Assessment & Plan (1) GERD (gastroesophageal reflux disease): Code(s): K21.9 - Gastro-esophageal reflux disease without esophagitis Category: Medical Plan: stable; same rx Orders: Orders Lipid Panel Today Z13.220 - Encounter for screening for lipoid disorders Complete Blood Count Auto Diff Today Z13.0 - Encounter for screening for diseases of the blood and blood-forming organs and certain disorders involving the immune mechanism Thyroid Stimulating Hormone Today Z13.29 - Encounter for screening for other suspected endocrine disorder
== END 2024-05-10 09:39 | disposition home or self-care (01) ==
PROVIDERS: PCP Internal Medicine; Visit Provider Internal Medicine
DX: K21.9 Gastro-esophageal reflux disease without esophagitis (principal)

== ENCOUNTER → 2024-05-10 09:08 | Outpatient (BNVA) | payer OTHER, SELFPAY | PROVIDERS: PCP Internal Medicine; Visit Provider Internal Medicine | DX: K21.9 Gastro-esophageal reflux disease without esophagitis (principal) | CPT/HCPCS: 96127; 99212 ==

== ENCOUNTER 2024-05-11 13:32 | Outpatient (REF) | payer OTHER, SELFPAY ==
[2024-05-11 13:51] LABS: MANUAL DIFF FLAG NO
[2024-05-11 14:08] LABS: Basophils Absolute Auto 0.1 X10*3/uL (0.0-0.2); Basophils Percent Auto 0.8 % (0-2); Eosinophils Absolute Auto 0.1 X10*3/uL (0.0-0.4); Eosinophils Percent Auto 1.9 % (0-4); Hematocrit 44.7 % (42.0-52.0); Hemoglobin 15.3 g/dl (14.0-18.0); Imm Gran Abs Auto 0.02 X10*3/uL (0.00-0.03); Imm Gran Pct Auto 0.3 % (0.0-0.4); Lymphocytes Absolute Auto 2.3 X10*3/uL (1.2-4.9); Lymphocytes Percent Auto 36.1 % (20-40); Mean Corpuscular HGB Conc 34.2 g/dl (31.0-36.0); Mean Corpuscular Hemoglobin 30.7 pg (27.0-33.0); Mean Corpuscular Volume 89.6 fL (80.0-98.0); Mean Platelet Volume 9.9 fL (9.4-12.4); Monocytes Absolute Auto 0.4 X10*3/uL (0.1-1.2); Monocytes Percent Auto 6.4 % (2-11); Neutrophils Absolute Auto 3.4 x10*3/uL (2.0-8.3); Neutrophils Percent Auto 54.5 % (45-73); Platelet Count 261 X10*3/uL (160-400); Red Blood Count 4.99 X10*6/uL (4.60-5.80); Red Cell Distribution Width 12.4 % (11.0-16.0); White Blood Count 6.3 X10*3/uL (4.8-10.8)
[2024-05-11 14:44] LABS: Cholesterol 186 mg/dL (<200); HDL Cholesterol 38 mg/dL (>40); LDL Cholesterol Calculated 123 mg/dL (<100); Triglycerides 128 mg/dL (<150)
[2024-05-11 14:58] LABS: Thyroid Stimulating Hormone 1.01 uIU/mL (0.32-4.0)
== END 2024-05-11 13:33 | disposition home or self-care (01) ==
LOC: HO.LAB 13:32
PROVIDERS: PCP Internal Medicine; Visit Provider Internal Medicine
DX: Z13.29 Encounter for screening for other suspected endocrine disorder (principal); Z13.0 Encounter for screening for diseases of the blood and blood-forming organs and certain disorders involving the immune mechanism; Z13.220 Encounter for screening for lipoid disorders
CPT/HCPCS: 36415; 80061; 84443; 85025

== ENCOUNTER 2024-06-05 12:56 | Outpatient (AMB) | payer OTHER, SELFPAY ==
--- NOTE | 2024-06-05 12:57 | A.OFFVIS_ITS ---
Vital Signs 06/05/24 12:58 Height 5 ft 9 in Weight 198 lb 6.656 oz BMI 29.3 BP 124/78 Blood Pressure Location Lt brachial Position Sitting Pulse 107 H Intake Visit Reasons: 6 month follow up Intake Note: Abhijeet presents in the office as a 6 month follow up. CC: He states that he is having some concerns today - he has been taking acid reflux medication but it still feels like he has a swelling feeling in his tongu. He takes the medications in the AM he still has the burning in his chest and his back - he takes the other medication before PT and he thinks that the kidneys may be effecting his tongue. States he has been getting headaches and he thinks it is related to the acid reflux. He states that everything feels funny. He states that it is hard to know what is going on seems he cannot hear. Sometimes he has soft stools but no diarrhea. Gas and when he farts there will be some blood or green spots in his underwear - tongue also really dry at times. States that it is hard in his flank area that is kidney related. 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 RECAP: He had EGD and colo for abdo pain 2019 mild esophagitis mild gastric erythema normal colonoscopy apart from hemorrhoids path- chronic erosive esophagitis rept EGD 06/2023 balloon dilation path: moderate chronic inflammation at GEJ and active esophagitis in distal esophagus other data: US 11/2021-- normal Labs: 2022-nml HGB, mild raised bili and ALT Prior visits : CTe: no evidence of IBD, umbilical henria and diastasis of recti musc noted referred to urology due to urine issues referred to surgery for umbilical hernia repair, which he had done INTERIM: He has some burping He has poor diet, he has bloating he has abnormal stool, looks different than normal -drops of red, for a while tongue feels swollen and red at times he has issues with throat but cant really describe it -not really having dysphagia EXAM: GENERAL: The patient is well developed and nontoxic. VITAL SIGNS:see workflow HEENT: Nonicteric sclerae, PERRLA, EOMI. Oropharynx clear. Moist mucous membranes. Conjunctivae appear well perfused. No thyroid mass. CHEST: Chest wall is nontender. HEART: Regular rate and rhythm without murmurs. LUNGS: Clear to auscultation bilaterally. ABDOMEN: Soft, positive bowel sounds, nontender, no organomegaly.no flank tenderness--moderate umbilical hernia, tender to touch SKIN: nml NEUROLOGIC: Cranial nerves II-XII intact without motor/sensory deficit. psych- nml affect A/P; 1/ GERD, taking PPI, but maybe worsening has non specific sx 2/ abn bowel habit and stools PLAN: 1/ cont PPI 2/ EGD and colonoscopt due to change in symptoms--suprep 3/ check TSH and LFT PFSH Medical History Depression Deaf Surgical History Hx of colonoscopy History of esophagogastroduodenoscopy (EGD) Umbilical hernia (12/18/22) Social History Housing: Apartment Patient Tobacco Use Status: Never used Tobacco Tobacco use type: Cigarette e-Cigarette/Vaping Use: Never Used Second Hand Smoke Exposure: No service: No Current occupational status: disabled Current occupational exposures/hazards: No Cognitive needs: Yes Hearing needs: No Vision needs: Yes Physical Exam Vital Signs: Last Vital Signs Pulse 107 H 06/05/24 12:58 BP 124/78 06/05/24 12:58 BMI result Body Mass Index 29.3 Assessment & Plan Assessment & Plan (1) GERD (gastroesophageal reflux disease): Code(s): K21.9 - Gastro-esophageal reflux disease without esophagitis Category: Medical Plan: see above Orders: Orders TSH reflex Free T4 Today K21.9 - Gastro-esophageal reflux disease without esophagitis Comprehensive Met. Panel Today K75.81 - Nonalcoholic steatohepatitis ([facility]) Medications: New sodium,potassium,mag sulfates 17.5-3.13-1.6 gram (Suprep Bowel Prep Kit) DILUTE; drink 1/2 at 6-8 pm and half at 11 PM- 1AM 354 mL 0RF Coding Level of Care Code Est Pt Level 4 (48767) Diagnoses GERD (gastroesophageal reflux disease) K21.9
[2024-06-05 12:58] VITALS: BP 124/78; PULSE 107; BMI 29.3
== END 2024-06-05 13:42 | disposition home or self-care (01) ==
PROVIDERS: PCP Internal Medicine; Visit Provider Internal Medicine Gastroenterology
DX: K21.9 Gastro-esophageal reflux disease without esophagitis (principal)
CPT/HCPCS: 99214

== ENCOUNTER → 2024-06-05 12:56 | Outpatient (BNVA) | payer OTHER, SELFPAY | PROVIDERS: PCP Internal Medicine; Visit Provider Internal Medicine Gastroenterology | DX: K21.9 Gastro-esophageal reflux disease without esophagitis (principal) | CPT/HCPCS: 99212 ==

== ENCOUNTER 2024-08-11 14:01 | Outpatient (AMB) | payer OTHER, SELFPAY ==
[2024-08-11 14:10] VITALS: BP 128/70; PULSE 87; TEMP 37.4; O2SAT 97; BMI 29.4
--- NOTE | 2024-08-11 14:10 | A.OFFPC_ITS ---
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 Scouring Train Operator Language: [place] Sign Language Allergies No Known Allergies Allergy (Verified 08/12/24 19:01) Medication List - Last Reconciled 08/11/24 by DEE DEE Jernigan budesonide mg inhalation ipratropium bromide 2 sprays intranasal TID pantoprazole 40 mg PO QAM sodium,potassium,mag sulfates 17.5-3.13-1.6 gram (Suprep Bowel Prep Kit) DILUTE; drink 1/2 at 6-8 pm and half at 11 PM- 1AM terazosin 2 mg PO BEDTIME 90 days Tobacco use date assessed: 08/11/24 Dental Screening Dental Screen Date: 08/11/24 Did you have a dental visit in the last 12 months?: Yes Did you have a dental problem in the last 6 months where you did not have access to dental care?: No Was dental information given to patient?: Patient has dentist HPI cough, chills, body aches persistent 2 weeks HPI Details The patient is a 48-year-old male with significant past medical history of congenital deafness, GERD, incomplete bladder emptying Translation was provided through ASL The patient is presenting today with complaints of ongoing multiple symptoms Reports that symptoms started on 07/15/2024. Reports that his symptoms started with red, itchy eyes Next, he started to have nasal congestion maybe you did a half after that led to a productive cough of greenish/yellowish secretion and chest tightness. He reported that he was having muscle aches at that time, in a low-grade fever along with on and off headaches. Reports that he did not get check for COVID are flu. He denies any sick contacts. He reports that he had a mild sore throat maybe from his drainage, per patient. He denies sore throat and shortness of Breath today. The patient reports that today he is slightly feeling better but noticing that he has not gotten in his energy back. His eyes are less red but still have drainage sometime in the mornings. Patient also reports that he had low-grade fever. He is still coughing up yellowish secretions. tx: the patient has been taking Tylenol prn PFSH Medical History Depression Deaf Surgical History Hx of colonoscopy History of esophagogastroduodenoscopy (EGD) Umbilical hernia (12/18/22) Social History Housing: Apartment Patient Tobacco Use Status: Never used Tobacco Tobacco use type: Cigarette e-Cigarette/Vaping Use: Never Used Second Hand Smoke Exposure: No service: No Current occupational status: disabled Current occupational exposures/hazards: No Cognitive needs: Yes Hearing needs: No Vision needs: Yes Questionnaire PHQ-9 Over the last 2 weeks, how often have you been bothered by any of the following problems? 1. Little interest or pleasure in doing things: not at all 2. Feeling down, depressed, or hopeless: not at all 3. Trouble falling or staying asleep, or sleeping too much: not at all 4. Feeling tired or having little energy: not at all 5. Poor appetite or overeating: not at all 6. Feeling bad about yourself - or that you are a failure or have let yourself or your family down: not at all 7. Trouble concentrating on things, such as reading the newspaper or watching television: not at all 8. Moving or speaking so slowly that other people could have noticed. Or the opposite - being so fidgety or restless that you have been moving around a lot more than usual: not at all 9. Thoughts that you would be better off or of hurting yourself in some way: not at all Total score: 0 Depression Screening Interpretation: Negative Depression Screening Done: Yes 64288 - PHQ-9 Billing: Yes Source: Developed by Drs. Martín Conroy, Olivia Saldivar, Ramirez Harris and colleagues, with an educational vanesa from [employer]. Thrive Questionnaire Date Thrive assessed: 08/11/24 I am a: Patient What is your living situation today?: I have a steady place to live Within the past 12 months, did the food you bought not last and you didn't have the money to get more?: Never true Within the past 12 months, did you worry whether your food would run out before you got money to buy more?: Never true Do you have trouble paying for medicines?: No Do you have trouble getting transportation to medical appointments?: No Do you have trouble paying your heating and electricity bill?: No Do you have trouble taking care of your child, family member or friend?: No Do you have trouble with day-to-day activities such as bathing, preparing meals, shopping, managing finances, etc.?: No Are you currently unemployed and looking for a job?: I choose not to answer this question Are you interested in more education?: No Currently or been in a relationship where the following occur: No concerns reported THRIVE Score: 0 AUDIT C Alcohol Use Questionnaire (AUDIT-C) 1. How often do you have a drink containing alcohol?: Never 2. How many drinks containing alcohol do you have on a typical day when you are drinking?: 1 or 2 3. How often do you have six or more drinks on one occasion?: Never Total Score: 0 Score Reviewed/Action Taken: Yes MODESTA-7 AMB Questionnaire MODESTA-7 Date MODESTA - 7 assessed: 08/11/24 Feeling nervous, anxious, or on edge: 0 = Not at all Not being able to stop or control worryin = Not at all Worrying too much about different things: 0 = Not at all Trouble relaxin = Not at all Being so restless that it is hard to sit still: 0 = Not at all Becoming easily annoyed or irritable: 0 = Not at all Feeling afraid as if something awful might happen: 0 = Not at all Total MODESTA-7 score (0-4 normal; 5-9 mild; 10-14 moderate; 15-21 severe): 0 Source: Developed by Drs. Martín Conroy, Olivia Saldivar, Ramirez Harris and colleagues, with an educational vanesa from [employer]. MODESTA-7 Assessment Billing MODESTA-7 Assessment Tool: MODESTA-7 Assessment 59525 Review of Systems Const Details: Denies chills, reports low energy, reports low-grade fever(s), reports on and off headache(s) and Denies weakness HEENT Denies change in vision, Denies dizziness, Denies hearing loss, reports nasal congestion, Denies sinus pain, Denies sinus pressure and Denies sore throat Card Denies chest pain, Denies lightheadedness, Denies dyspnea and Denies other (palpitations) Resp reports productive cough (yellowish/greenish), Denies dyspnea and Denies wheezing GI Denies abdominal pain, Denies melena, Denies hematochezia, Denies change in bowel habits, Denies dyspepsia and Denies nausea Denies hematuria and Denies dysuria Musc Denies abnormal gait, Denies myalgias, Denies arthralgias, Denies numbness and Denies tingling Psych Denies anxiety, Denies depression and Denies memory loss Physical exam (Primary Care) Vital Signs: Last Vital Signs Temp 99.3 F 08/11/24 14:10 Pulse 87 08/11/24 14:10 BP 128/70 08/11/24 14:10 Pulse Ox 97 08/11/24 14:10 Oxygen Delivery Method Room Air 08/11/24 14:10 BMI result Body Mass Index 29.4 Tobacco/Smoking Status: Tobacco use Status Tobacco use date assessed 08/11/24 08/11/24 14:13 Patient Tobacco Use Status Never used Tobacco 08/11/24 14:13 Tobacco use type Cigarette 08/11/24 14:13 e-Cigarette/Vaping Use Never Used 08/11/24 14:13 PHQ-9: PHQ-9 Score PHQ-9: Total score 0 08/12/24 19:03 Depression Screening Interpretation: Negative Thrive Assessment: Date of Thrive Assessment Date Thrive assessed 08/11/24 08/11/24 14:13 Currently or been in a relationship where the following occur: No concerns reported Const Other: General: no acute distress, well developed, alert and awake Nutritional Appearance: well nourished Orientation/consciousness: patient oriented x3 HENMT Head: Yes normocephalic and Yes atraumatic Ears: hearing grossly normal bilaterally and TM's normal bilaterally General nose exam: Normal external nose present, bilateral nares passage erythematous with boggy turbinates Mouth: Normal oral and palatal mucosa present and moist mucous membranes Teeth and gingiva: dentition normal Throat: Yes oropharynx normal Eyes other: sclera bright pink and watery Pupils: Equal, round and reactive pupils present and Pupil accommodation reflex normal EOM: EOMs intact bilaterally Neck Neck: Yes normal visual inspection, Yes no lymphadenopathy Thyroid: Thyroid normal Lymphatic: no lymphadenopathy noted Chest Chest palpation & inspection: normal inspection of the chest Resp Effort & Inspection: normal respiratory effort Auscultation: clear to auscultation bilaterally Cardio Rate: regular rate Rhythm: regular rhythm Heart sounds: S1 normal heart sound present, S2 normal heart sound present, no gallops, no murmurs and no rubs GI Palpation (GI): abdomen soft and nontender, No hepatosplenomegaly present and No Rebound tenderness present Auscultation: normal bowel sounds General: Yes no CVA tenderness Back/Spine/Pelvis Back: no CVA tenderness Skin General: warm and dry. Normal skin color. Normal skin turgor Lesions: no lesions Neuro General: patient oriented x3, gait normal Cranial nerves: Yes Equal, round and reactive pupils present Cognition (Neuro): normal cognition Gait exam (Neuro): Normal gait present Extrem General: Yes normal to inspection, No edema and No calf tenderness Psych Appearance: grossly normal Affect: normal affect Attitude: cooperative Coding Level of Care Code Est Pt Level 3 (87325) Diagnoses Productive cough R05.8 Bacterial conjunctivitis of both eyes H10.9; B96.89 Upper respiratory tract infection, unspecified type J06.9 URI type: unspecified URI Additional Codes MODESTA-7 Assessment Billing - MODESTA-7 Assessment Tool: MODESTA-7 Assessment 51880 ([id number]) PHQ-9 - 47922 - PHQ-9 Billing: Yes ([id number]) Time Spent (min) 25 Assessment & Plan Assessment & Plan (1) Productive cough: Code(s): R05.8 - Other specified cough Category: Medical Plan: encouraged fluids / hydration (2) Bacterial conjunctivitis of both eyes: Code(s): H10.9 - Unspecified conjunctivitis; B96.89 - Other specified bacterial agents as the cause of diseases classified elsewhere Category: Medical Plan: ofloxacin 0.3% 2 drops QID x 10day (3) URI (upper respiratory infection): Code(s): J06.9 - Acute upper respiratory infection, unspecified Category: Medical Qualifiers: URI type: unspecified URI Qualified Code(s): J06.9 - Acute upper respiratory infection, unspecified Plan: started augmentin Q12H x7 days encouraged fluid hydration Plan The patient is to contact the office if his symptoms are not improving and worsening Follow up as scheduled with PCP in September 2024 Medications: New amoxicillin-pot clavulanate 500-125 mg (Augmentin) 1 tab PO Q12H 14 tabs 0RF 7 days ofloxacin 0.3% 2 drps ophthalmic (eye) QID 10 mL 0RF 10 days
== END 2024-08-11 14:54 | disposition home or self-care (01) ==
PROVIDERS: PCP Internal Medicine
DX: H10.9 Unspecified conjunctivitis (principal); J06.9 Acute upper respiratory infection, unspecified; R05.8 Other specified cough; B96.89 Other specified bacterial agents as the cause of diseases classified elsewhere

== ENCOUNTER → 2024-08-11 14:01 | Outpatient (BNVA) | payer OTHER, SELFPAY | PROVIDERS: PCP Internal Medicine | DX: R05.8 Other specified cough (principal); H10.9 Unspecified conjunctivitis; B96.89 Other specified bacterial agents as the cause of diseases classified elsewhere; J06.9 Acute upper respiratory infection, unspecified | CPT/HCPCS: 96127; 99212 ==

== ENCOUNTER 2024-09-03 22:21 | Emergency (ER) | payer OTHER, SELFPAY ==
[2024-09-03 23:46] VITALS: PULSE 89; RESP 16; TEMP 36.9; O2SAT 100; BMI 29.2
[2024-09-04 06:00] LABS: Appearance Urine Clear; Color Urine Yellow; Glucose Urine UA Negative (Negative); Leukocyte Esterase Urine Negative (Negative); Nitrite Urine Negative (Negative); PH 7.5 (5.0-9.0); Specific Gravity - Urine >= 1.030 (1.005-1.025); Urine Blood Negative (Negative); Urine Ketones Negative (Negative); Urine Protein Negative (Neg-Trace)
[2024-09-04 06:05] VITALS: BP 146/85; PULSE 75; RESP 16; TEMP 36.6; O2SAT 97
--- NOTE | 2024-09-04 07:09 | ED.GENADULT ---
HPI - General Adult General Chief complaint: General Medical Stated complaint: ?UTI non verbal Time Seen by Provider: 09/04/24 06:40 Source: patient and warning coordination meteorologist (ASL) Mode of arrival: ambulatory Limitations: language barrier (ASL) History of Present Illness ED Provider: MACHO MARIE PA-C HPI narrative: 48-year-old deaf male presents to the emergency department for evaluation of penile irritation, dysuria and yellow a penile discharge x2 days. Admits to recent unprotected intercourse with female partner prior to onset of symptoms. Denies using protection. Denies any known history of sexually transmitted infections including HIV and syphilis. Denies fever, chills, nausea or vomiting, abdominal pain, flank pain, hematuria, penile lesions. Denies any trauma/ injury. 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 Related Data Home Medications ?Medication ?Instructions ?Recorded ?Confirmed ipratropium bromide 21 mcg (0.03 2 spray intranasal TID 02/16/23 08/11/24 %) nasal spray budesonide 0.5 mg/2 mL suspension mg inhalation 12/06/23 08/11/24 for nebulization Previous Rx's ?Medication ?Instructions ?Recorded pantoprazole 40 mg tablet,delayed 40 mg PO QAM #180 tabs 12/06/23 release terazosin 2 mg capsule 2 mg PO BEDTIME 90 days #90 caps 05/23/24 sodium,potassium,mag sulfates 17.5 See Rx Instructions PO .COMPLEX 06/05/24 gram-3.13 gram-1.6 gram oral soln #354 mL (Suprep Bowel Prep Kit) amoxicillin 500 mg-potassium 1 tab PO Q12H 7 days #14 tabs 08/11/24 clavulanate 125 mg tablet (Augmentin) ofloxacin 0.3 % eye drops 2 drp ophthalmic (eye) QID 10 days 08/11/24 #10 mL doxycycline monohydrate 100 mg 100 mg PO BID 7 days #14 caps 09/04/24 capsule Allergies Allergy/AdvReac Type Severity Reaction Status Date / Time No Known Allergies Allergy Verified 09/03/24 23:52 Review of Systems Review of Systems: Constitutional: No fever, chills, fatigue, night sweats, weight changes ENT/Mouth: No ear pain, hearing loss, nasal congestion, sinus pain, rhinorrhea, sore throat Eyes: No eye pain, swelling, redness, vision changes, discharge Cardio: No chest pain, palpitations, NEWELL, orthopnea, peripheral edema Pulm: No SOB, cough, sputum, wheezing, dyspnea, hemoptysis GI: No nausea, vomiting, hematemesis, abdominal pain, diarrhea, constipation, hematochezia, melena : No irregular bleeding, frequency, urgency, hesitancy, hematuria, flank pain, urinary flow changes, urinary incontinence or retention, +penile discharge/ irriation, +dysuria MSK: No back pain, neck pain, joint pain, myalgias Skin: No lesions, rashes Neuro: No weakness, numbness, paresthesias, LOC, dizziness, headache Psych: No anxiety/panic, depression, SI/HI, AH/VH All other systems reviewed and are negative. [facility] Past Medical History Attestation statement: The following information was validated with the patient. Source: old records reviewed and nursing notes reviewed Medical History Depression Deaf Surgical History Hx of colonoscopy History of esophagogastroduodenoscopy (EGD) Umbilical hernia (12/18/22) Social History Social History Housing: Apartment Patient Tobacco Use Status: Never used Tobacco Tobacco use type: Cigarette e-Cigarette/Vaping Use: Never Used Second Hand Smoke Exposure: No Advance Directives: No Advance Directives Information Provided: Yes service: No Current occupational status: disabled Current occupational exposures/hazards: No Cognitive needs: Yes Hearing needs: No Vision needs: Yes Physical Exam ED Vital Signs: Vital Signs - 24 hr 09/03/24 23:46 09/04/24 06:05 Temperature 98.4 F 97.8 F Pulse Rate 89 75 Respiratory Rate 16 16 Blood Pressure 146/85 H Pulse Oximetry 100 97 Oxygen Delivery Method Room Air Room Air BMI result Body Mass Index 29.2 vital signs stable, afebrile General: Well appearing, in no acute distress. Skin: Warm, dry, intact. No rashes or lesions. Head: Normocephalic, atraumatic. EENT: Hearing is intact b/l. Conjunctiva clear. Sclera is anicteric. PERRLA. EOM intact. Moist mucous membranes.? Neck: Supple without LAD Cardiac: Chest wall symmetric. RRR Lungs: Normal respiratory effort without accessory muscle use. CTA bilaterally Abdomen: Soft, non-tender, non-distended. No rebound tenderness or guarding. Positive BS x4. no cvat. : +Sensitive exam performed. Patient declined nuclear medical technologist. No external lesions noted to groin region or penis. Penis is uncircumcised. Foreskin easily retractable. No notable erythema to glans penis. No friable tissue. Expressible yellowish discharge from urethral meatus. Testicles with normal lie - no erythema or edema. No palpable inguinal lymphadenopathy. Ext: Upper and lower extremities atraumatic, without tenderness, deformity, swelling or erythema Neuro: AOx3. Normal speech.Ambulating with steady gait. Course Course Course Narrative: Urine does not demonstrate urinary tract infection. CT/NG testing pending. Given notable yellow discharge on my examination, patient and I discussed preemptive treatment for gonorrhea and chlamydia prior to tests resulting. Patient would like to be treated at this time. Ceftriaxone given in the ED. course of doxycycline sent to pharmacy. Referral to tapestry provided if he desires to her any additional testing however I have low suspicion for HIV/syphilis at this time. Discussed safe sex practices. Patient has remained stable throughout ED visit today. Discussed worrisome signs and symptoms and when to return to the ED. All questions answered at this time. Patient is agreeable with disposition and stable for discharge. Medical Decision Making Medical Decision Making [facility] Narrative: 48-year-old deaf male presents to the emergency department for evaluation of penile irritation, dysuria and yellow a penile discharge x2 days. hypertensive, vitals are otherwise wnl. he is nontoxic apperaing and in NAD. Sensitive exam performed. Patient declined nuclear medical technologist. No external lesions noted to groin region or penis. Penis is uncircumcised. Foreskin easily retractable. No notable erythema to glans penis. No friable tissue. Expressible yellowish discharge from urethral meatus. Testicles with normal lie - no erythema or edema. No palpable inguinal lymphadenopathy. Exam of abdomen is unremarkable. Differential diagnosis includes gonorrhea, chlamydia, UTI, balanitis. Unlikely cellulitis, phimosis, paraphimosis. Plan for UA, CT/NG testing, re-evaluation. Differential Diagnosis Differential Diagnoses: The differential diagnosis associated with the presentation includes as above. Admission/Observation not indicated. Lab Data MDM Lab Attestation statement: I reviewed the patient's lab results. as above. Labs: Lab Results 09/04/24 Range/Units 05:51 Urine Color Yellow Urine Appearance Clear Urine pH 7.5 (5.0-9.0) Ur Specific [place] >= 1.030 H (1.005-1.025) Urine Protein Negative (Neg-Trace) mg/dL Urine Glucose (UA) Negative (Negative) mg/dL Urine Ketones Negative (Negative) mg/dL Urine Blood Negative (Negative) Urine Nitrite Negative (Negative) Ur Leukocyte Esterase Negative (Negative) Chlam trachomat DNA PCR NOT DETECTED (Not Detect.) N.gonorrhoeae DNA (PCR) NOT DETECTED (Not Detect.) External Record Review External record reviewed: Inpatient record Prescription Management I considered prescription management with: Antibiotic (doxycycline) Social Determinants Patient?s care significantly limited by Social Determinants of Health including: Other Social Determinant of Health Critical Care Time Critical Care Time Critical Care Time: No Discharge Plan Discharge Clinical Impression: Penile discharge Patient Disposition: Home, Self-Care Instructions: Sexually Transmitted Diseases (ED), Male Condom Use (ED) Additional Instructions: You were evaluated in the ED today due to concerns for penile discharge. Your urine does not demonstrate a urinary tract infection. As discussed, your urine was sent off for further testing for gonorrhea and chlamydia. We will call you with any abnormal findings based on your urine collected today. You have opted to be treated for both today. You were treated for gonorrhea with a single dose of Ceftriaxone. Treatment for chlamydia is with a 7 day course of antibiotics (doxycycline) which has been sent to your pharmacy. Take this to completion. Until you are reevaluated by a health care provider, please practice safe sex as discussed. Please also have a conversation with your sexual partners. You should abstain from sex until you have tested negative for any STDs. You may also obtain full panel STD testing to test for other STDs including HIV, Hepatitis B&C, and syphilis which can be done by your PCP or at a local clinic. [facility] can help facilitate these tests. They often have walk-in hours. If new or worsening symptoms occur, please return to the ED. In the case of any emergency, call 911. [facility]: [address], [place] [address] [phone] Prescriptions: New doxycycline monohydrate 100 mg capsule 100 mg PO BID 7 Days Qty: 14 0RF No Action terazosin 2 mg capsule 2 mg PO BEDTIME 90 Days Qty: 90 1RF ipratropium bromide 21 mcg (0.03 %) spray,non-aerosol 2 spray intranasal TID budesonide 0.5 mg/2 mL suspension for nebulization inhalation pantoprazole 40 mg tablet,delayed release (DR/EC) 40 mg PO QAM Qty: 180 3RF amoxicillin-pot clavulanate [Augmentin] 500-125 mg tablet 1 tab PO Q12H 7 Days Qty: 14 0RF ofloxacin 0.3 % drops 2 drp ophthalmic (eye) QID 10 Days Qty: 10 0RF sodium,potassium,mag sulfates [Suprep Bowel Prep Kit] 17.5-3.13-1.6 gram recon soln See Rx Instructions PO .COMPLEX Qty: 354 0RF Rx Instructions: DILUTE; drink 1/2 at 6-8 pm and half at 11 PM- 1AM Referrals: Laci Ayers MD [Primary Care Provider] - Stand Alone Forms: Work/School Release Print Language: Cymro
[2024-09-04 07:26] LABS: CT PCR NOT DETECTED (Not Detect.); NG PCR NOT DETECTED (Not Detect.)
[2024-09-04 07:53] VITALS: BP 146/85; PULSE 75; RESP 16; TEMP 36.6; O2SAT 97
[2024-09-04] MEDS: cefTRIAXone sodium 500 MG, Lidocaine HCl 1 % MPF 1 ML IM (07:53)
== END 2024-09-04 07:55 | disposition home or self-care (01) ==
PROVIDERS: Emergency Provider Emergency Medicine; PCP Internal Medicine
DX: R36.9 Urethral discharge, unspecified (principal); R30.0 Dysuria
CPT/HCPCS: 81003; 87491; 87591; 96372; 99283; 99284; J0696; J2003

== ENCOUNTER 2024-09-07 06:03 | Day surgery (SDC) | payer OTHER, SELFPAY ==
[2024-09-05 14:58] VITALS: BMI 29.2
--- NOTE | 2024-09-06 12:12 | HO.ANESPROP2 ---
Documented by User: Fany Dupree NP 09/06/24 12:13 HPI - Anesthesia Eval Consult details Narrative: 48yo M for Upper Endoscopy and Colonoscopy Congenital deafness, parts interpreter [facility] Active Problems Active Problems: All Active Problems URI (upper respiratory infection) (Acute) Bacterial conjunctivitis of both eyes (Acute) Nasal congestion (Acute) Productive cough (Acute) Congenital deafness (Acute) Irritant contact dermatitis due to friction or contact with body fluids, unspecified (Acute) Balanitis (Acute) Preop exam for internal medicine (Acute) Incomplete bladder emptying (Acute) Urinary dribbling (Acute) Weak urinary stream (Acute) GERD (gastroesophageal reflux disease) (Acute) Urinary urgency (Acute) Urinary frequency (Acute) Feeling of incomplete bladder emptying (Acute) Nocturia (Acute) Umbilical hernia (Acute 12/18/22) Dysuria (Acute) High risk sexual behavior (Acute) Cough (Acute) Physical exam (Acute) Past Medical History Medical History Depression Deaf Family History Family history of problems with anesthesia: No Surgical History Surgical History Hx of colonoscopy History of esophagogastroduodenoscopy (EGD) Umbilical hernia (12/18/22) History of Problems with Anesthesia: No Social History Social History Housing: Apartment Patient Tobacco Use Status: Never used Tobacco Tobacco use type: Cigarette e-Cigarette/Vaping Use: Never Used Second Hand Smoke Exposure: No Advance Directives: No Advance Directives Information Provided: Yes service: No Current occupational status: disabled Current occupational exposures/hazards: No Cognitive needs: Yes Hearing needs: No Vision needs: Yes Meds Allergies Allergy/AdvReac Type Severity Reaction Status Date / Time No Known Allergies Allergy Verified 09/03/24 23:52 Home Medications ?Medication ?Instructions ?Recorded ?Confirmed ?Last Taken ?Type ipratropium bromide 21 mcg (0.03 2 spray intranasal TID 02/16/23 08/11/24 Unknown History %) nasal spray budesonide 0.5 mg/2 mL suspension mg inhalation 12/06/23 08/11/24 Unknown History for nebulization Exam Height,Weight and Vital Signs: Height 5 ft 9 in Weight 89.811 kg Assessment and Plan Assessment Anesthesia Assessment: Chart Reviewed Final Anesthetic Review Family History of Problems with Anesthesia: No History of Problems with Anesthesia: No Documented by User: Linda Correa MD 09/07/24 07:47 PMFSH Past Medical History Medical History Depression Deaf Surgical History Surgical History Hx of colonoscopy History of esophagogastroduodenoscopy (EGD) Umbilical hernia (12/18/22) Social History Social History Housing: Apartment Patient Tobacco Use Status: Never used Tobacco Tobacco use type: Cigarette e-Cigarette/Vaping Use: Never Used Second Hand Smoke Exposure: No Advance Directives: No Advance Directives Information Provided: Yes service: No Current occupational status: disabled Current occupational exposures/hazards: No Cognitive needs: Yes Hearing needs: No Vision needs: Yes Meds Allergies Allergy/AdvReac Type Severity Reaction Status Date / Time No Known Allergies Allergy Verified 09/03/24 23:52 Home Medications ?Medication ?Instructions ?Recorded ?Confirmed ?Last Taken ?Type ipratropium bromide 21 mcg (0.03 2 spray intranasal TID 02/16/23 08/11/24 Unknown History %) nasal spray budesonide 0.5 mg/2 mL suspension mg inhalation 12/06/23 08/11/24 Unknown History for nebulization Exam Airway Mallampati Class: II TM Dist: >3cm Neck ROM: Full Loose/Missing/Broken Teeth: No Heart: RRR Lungs: CTA Assessment and Plan Assessment Anesthesia Assessment: Anesthesia Plan Discussed Final Anesthetic Review NPO: Yes ASA Class: II Final Preanesthetic Review: Meds/Allgs Chart Reviewed, Consent Obtained/Reviewed and Anes Risks/Benef Reviewed Patient Risk: Low Procedure Risk: Intermediate Anesthetic Plan Anesthetic Plan: MAC: Disposition: Standard PACU
[2024-09-07 06:38] VITALS: BP 133/96; PULSE 105; RESP 20; TEMP 35.8; O2SAT 97
[2024-09-07] MEDS: Lactated Ringers 1,000 ML 100 ML IVCONT (07:09)
--- NOTE | 2024-09-07 07:43 | MHC.SHP ---
Pre-Procedural Eval Section A - 24 Hr Update-Section A only Date of Service: 09/07/24 Section B - Complete if H&P > 30 days Chief Complaint: Gastro-esophageal reflux disease without esophagit Details of Present Illness: abn bowel habit Relevant Family History (Specify if Yes): No Relevant Social History: None Present Medications: see Short Stay Collaborative assessment Medical History: Significant History (Depression Deaf) History of Previous Operations: Relevant previous surgery/procedure and date(s) ( Hx of colonoscopy History of esophagogastroduodenoscopy (EGD) Umbilical hernia (12/18/22)) Allergies: Allergies Allergy/AdvReac Type Severity Reaction Status Date / Time No Known Allergies Allergy Verified 09/03/24 23:52 Review of Systems Sugical H&P ROS: Negative: Constitution, Cardiovascular, Respiratory, Neurological, Psychiatric, Hem-Onc, Allergic/Immunologic, Gastrointestinal, Genitourinary, Musculoskeletal, Integumentary, Endocrine and Eyes/Ears/Nose/Throat Exam Surgical H&P Exam: Normal: HEENT, Normal: Heart, Normal: Lungs, Normal: Extremities, Normal: Abdomen, Normal: Skin and Normal: Neurological Exam Comment: deaf Plan Diagnosis/Plan: Unchanged I have reviewed the history and physical and performed a pertinent physical examination on my patient. No changes have occurred unless specified. Time Spent With Patient Time: Total time managing care of this patient today ____ minutes.
--- NOTE | 2024-09-07 08:15 | HO.OPN-COLON ---
Colonoscopy Operative Note Operative Note Date of Service: 09/07/24 Narrative: Operative Information Procedure Description: EGD, Colonoscopy Indication: abn bowel habit Anesthesia: MAC FLEXIBLE TRANSORAL UPPER GASTROINTESTINAL ENDOSCOPY AND COLONOSCOPY PROCEDURE NOTE UPPER ENDOSCOPY Consent: Indications for the procedure and potential complications of bleeding, perforation, reaction to medications and missed diagnosis were discussed with the patient and informed consent was obtained. Instrument: Olympus GIF H 190 J mid size upper endoscope Monitoring: Vital signs and clinical assessment, continuous EKG monitoring, Pulse oximetry, Carbon Dioxide monitoring and blood pressure monitoring were done throughout the procedure. Procedure: The patient was placed in the left lateral decubitis position and pre-procedure medications were administered and a bite block was placed. The endoscope was inserted into the mouth and advanced under direct vision to the third part of duodenum. A careful inspection was made as the upper endoscope was withdrawn including a retroflexed examination of the proximal stomach; Findings and interventions are described below. Findings: Larynx:normal Esophagus: GE junction at 40 cm, diaphragm hiatus at 40 cm, mild esophagitis at GEJ, bx taken, also random esophagus, lax LES noted Stomach: Normal mucosa. Biopsies were obtained. Grade 2 flap valve on retroflexed examination of the cardia. Duodenum: Mild duodenitis Intervention: Biopsies as noted above, COLONOSCOPY Instrument: Olympus variable stiffness pediatric scope 190L Colonoscopy Monitoring: Vital signs and clinical assessment, continuous EKG monitoring, Pulse oximetry, Carbon Dioxide monitoring and blood pressure monitoring were done throughout the procedure. Colon withdrawal time was 12 minutes. Procedure: The patient was placed in the left lateral decubitis position and pre-procedure medications were administered. After a digital rectal examination of the ano-rectum, the video colonoscope was inserted into the rectum and advanced through the colon to the cecum/TI. The colonoscope was slowly withdrawn in a retrograde panoramic fashion and the colon mucosa was carefully examined including a retroflexed view of the rectum. Findings and interventions are described below. Procedure Difficulty:moderate Findings: Terminal Ileum-normal, bx taken Random colo bx taken Cecum: 5 mm sessile polyp removed with cold forceps Ascending Colon: normal Transverse Colon -normal Descending Colon:normal Sigmoid Colon: normal Rectum: Retroflexion with small internal hemorrhoids, grade I Anorectum - normal Colon preparation: [place] Bowel Preparation Scale Right colon; 2 Transverse colon: 2 Left colon; 2 (0 = Unprepared colon segment with mucosa not seen due to solid stool that cannot be cleared. 1 = Portion of mucosa of the colon segment seen, but other areas of the colon segment not well seen due to staining, residual stool and/or opaque liquid. 2 = Minor amount of residual staining, small fragments of stool and/or opaque liquid, but mucosa of colon segment seen well. 3 = Entire mucosa of colon segment seen well with no residual staining, small fragments of stool or opaque liquid) Impression and Post Procedure Diagnosis: Endoscopy Findings: lax LES mil esophagitis mild duodenitis Colonoscopy Findings: colon polyp internal hemorrhoids Plan: Await Pathology results Repeat Colonoscopy in 5-7 years due to adenomatous appearing polyps or earlier if clinically indicated High fiber diet leaflet avoid straining at stool, epsom salts and sitz bath, anusol supps or cream GERD precautions Above findings were reviewed with the patient and relevant handouts were provided if indicated.
[2024-09-07 08:22] VITALS: BP 104/64; PULSE 94; RESP 16; TEMP 36.6; O2SAT 91
[2024-09-07 08:37] VITALS: BP 110/76; PULSE 88; RESP 16; O2SAT 95
[2024-09-07 08:52] VITALS: BP 113/81; PULSE 79; RESP 16; TEMP 36.6; O2SAT 95
== END 2024-09-07 10:04 | disposition home or self-care (01) ==
PROVIDERS: PCP Internal Medicine; Visit Provider Internal Medicine Gastroenterology
PROC: (CPT 45380; principal; 2024-09-07 07:30)
DX: R19.4 Change in bowel habit (principal); D12.0 Benign neoplasm of cecum; K64.0 First degree hemorrhoids; K21.9 Gastro-esophageal reflux disease without esophagitis; K20.80 Other esophagitis without bleeding; K29.60 Other gastritis without bleeding; K29.80 Duodenitis without bleeding; K44.9 Diaphragmatic hernia without obstruction or gangrene; F32.A Depression, unspecified; H91.3 Deaf nonspeaking, not elsewhere classified; Z79.899 Other long term (current) drug therapy; Z98.890 Other specified postprocedural states
CPT/HCPCS: 45380; 43239; 88305; 88313; 88342; J2003; J2704

== ENCOUNTER → 2024-09-07 06:03 | Outpatient (BNV) | payer OTHER, SELFPAY | PROVIDERS: PCP Internal Medicine; Visit Provider Internal Medicine Gastroenterology | DX: R19.4 Change in bowel habit (principal); D12.0 Benign neoplasm of cecum; K64.0 First degree hemorrhoids; K20.90 Esophagitis, unspecified without bleeding; K29.80 Duodenitis without bleeding | CPT/HCPCS: 43239; 45380 ==

== ENCOUNTER 2024-09-25 09:12 | Outpatient (AMB) | payer OTHER, SELFPAY ==
--- NOTE | 2024-09-25 09:14 | MHC.PC.OV ---
Vital Signs 09/25/24 09:15 Height 5 ft 9 in Weight 201 lb 8 oz BMI 29.8 BP 110/78 Blood Pressure Location Lt brachial Position Sitting Pulse 81 Pulse Source Pulse Oximeter Pulse Oximetry (%) 97 Oxygen Delivery Method Room Air Intake Visit Reasons: 5 month f/u Decision Support Manager Required: No Accompanied by: Self / Same As Patient Allergies No Known Allergies Allergy (Verified 09/25/24 09:15) Medication List - Last Reconciled 09/25/24 by Laci Ayers MD budesonide mg inhalation ipratropium bromide 2 sprays intranasal TID ofloxacin 0.3% 2 drps ophthalmic (eye) QID 10 days pantoprazole 40 mg PO QAM sodium,potassium,mag sulfates 17.5-3.13-1.6 gram (Suprep Bowel Prep Kit) DILUTE; drink 1/2 at 6-8 pm and half at 11 PM- 1AM terazosin 2 mg PO BEDTIME 90 days Tobacco use date assessed: 09/25/24 Dental Screening Dental Screen Date: 09/25/24 Did you have a dental visit in the last 12 months?: No Did you have a dental problem in the last 6 months where you did not have access to dental care?: No Was dental information given to patient?: Patient has dentist HPI 5 month f/u HPI Details GERD on Rx; deaf and mute; stable on rx PFSH Medical History Depression Deaf Surgical History Hx of colonoscopy History of esophagogastroduodenoscopy (EGD) Umbilical hernia (12/18/22) Social History Housing: Apartment Patient Tobacco Use Status: Never used Tobacco Tobacco use type: Cigarette e-Cigarette/Vaping Use: Never Used Second Hand Smoke Exposure: No service: No Current occupational status: disabled Current occupational exposures/hazards: No Cognitive needs: Yes Hearing needs: No Vision needs: Yes Questionnaire PHQ-9 Over the last 2 weeks, how often have you been bothered by any of the following problems? 1. Little interest or pleasure in doing things: not at all 2. Feeling down, depressed, or hopeless: several days 3. Trouble falling or staying asleep, or sleeping too much: not at all 4. Feeling tired or having little energy: not at all 5. Poor appetite or overeating: not at all 6. Feeling bad about yourself - or that you are a failure or have let yourself or your family down: not at all 7. Trouble concentrating on things, such as reading the newspaper or watching television: not at all 8. Moving or speaking so slowly that other people could have noticed. Or the opposite - being so fidgety or restless that you have been moving around a lot more than usual: not at all 9. Thoughts that you would be better off or of hurting yourself in some way: not at all Total score: 1 Depression Screening Interpretation: Negative Depression Screening Done: Yes 87431 - PHQ-9 Billing: Yes Source: Developed by Drs. Martín Conroy, Olivia Saldivar, Ramirez Harris and colleagues, with an educational vanesa from [employer]. Thrive Questionnaire Date Thrive assessed: 09/25/24 I am a: Patient What is your living situation today?: I have a steady place to live Within the past 12 months, did the food you bought not last and you didn't have the money to get more?: Never true Within the past 12 months, did you worry whether your food would run out before you got money to buy more?: Never true Do you have trouble paying for medicines?: No Do you have trouble getting transportation to medical appointments?: No Do you have trouble paying your heating and electricity bill?: No Do you have trouble taking care of your child, family member or friend?: No Do you have trouble with day-to-day activities such as bathing, preparing meals, shopping, managing finances, etc.?: No Are you currently unemployed and looking for a job?: I choose not to answer this question Are you interested in more education?: No Please select the resources that you would like help with: None Currently or been in a relationship where the following occur: No concerns reported THRIVE Score: 0 AUDIT C Alcohol Use Questionnaire (AUDIT-C) 1. How often do you have a drink containing alcohol?: Never 3. How often do you have six or more drinks on one occasion?: Never Total Score: 0 MODESTA-7 AMB Questionnaire MODESTA-7 Date MODESTA - 7 assessed: 09/25/24 Feeling nervous, anxious, or on edge: 0 = Not at all Not being able to stop or control worryin = Not at all Worrying too much about different things: 0 = Not at all Trouble relaxin = Not at all Being so restless that it is hard to sit still: 0 = Not at all Becoming easily annoyed or irritable: 0 = Not at all Feeling afraid as if something awful might happen: 0 = Not at all Total MODESTA-7 score (0-4 normal; 5-9 mild; 10-14 moderate; 15-21 severe): 0 Source: Developed by Drs. Martín Conroy, Olivia Saldivar, Ramirez Harris and colleagues, with an educational vanesa from [employer]. MODESTA-7 Assessment Billing MODESTA-7 Assessment Tool: MODESTA-7 Assessment 29314 Review of Systems Const Denies chills, Denies headache(s) and Denies weight loss ENT Denies headache(s) Card Denies chest pain, Denies syncope, Denies irregular heart rhythm and Denies dyspnea Resp Denies chest congestion, Denies cough and Denies dyspnea GI Denies abdominal pain, Denies change in stool character, Denies nausea and Denies vomiting Musc Denies deformity and Denies joint swelling Neuro Denies syncope and Denies headache(s) Physical exam (Primary Care) Vital Signs: Last Vital Signs Pulse 81 09/25/24 09:15 BP 110/78 09/25/24 09:15 Pulse Ox 97 09/25/24 09:15 Oxygen Delivery Method Room Air 09/25/24 09:15 BMI result Body Mass Index 29.8 Tobacco/Smoking Status: Tobacco use Status Tobacco use date assessed 09/25/24 09/25/24 09:20 Patient Tobacco Use Status Never used Tobacco 09/25/24 09:20 Tobacco use type Cigarette 09/25/24 09:20 e-Cigarette/Vaping Use Never Used 09/25/24 09:20 PHQ-9: PHQ-9 Score PHQ-9: Total score 1 09/25/24 09:23 Depression Screening Interpretation: Negative Thrive Assessment: Date of Thrive Assessment Date Thrive assessed 09/25/24 09/25/24 09:20 Currently or been in a relationship where the following occur: No concerns reported Const General: cooperative, comfortable, no acute distress and alert Neck Neck: Yes no lymphadenopathy Thyroid: Thyroid normal Resp Effort & Inspection: normal respiratory effort Auscultation: clear to auscultation bilaterally Percussion: percussion normal Cardio Jugular venous distension: no JVD Palpation: normal PMI Rate: regular rate Rhythm: regular rhythm Heart sounds: S1 normal heart sound present and S2 normal heart sound present GI Inspection: Yes normal to inspection Palpation (GI): No hepatosplenomegaly present Skin General skin exam: no rashes or lesions noted Extrem General: Yes no clubbing, cyanosis or edema Coding Level of Care Code Est Pt Level 3 (29616) Diagnoses GERD (gastroesophageal reflux disease) K21.9 Additional Codes MODESTA-7 Assessment Billing - MODESTA-7 Assessment Tool: MODESTA-7 Assessment 56220 ([id number]) PHQ-9 - 51316 - PHQ-9 Billing: Yes ([id number]) Assessment & Plan Assessment & Plan (1) GERD (gastroesophageal reflux disease): Code(s): K21.9 - Gastro-esophageal reflux disease without esophagitis Category: Medical Plan: stable; same rx
[2024-09-25 09:15] VITALS: BP 110/78; PULSE 81; O2SAT 97; BMI 29.8
== END 2024-09-25 09:36 | disposition home or self-care (01) ==
PROVIDERS: PCP Internal Medicine; Visit Provider Internal Medicine
DX: K21.9 Gastro-esophageal reflux disease without esophagitis (principal)

== ENCOUNTER → 2024-09-25 09:12 | Outpatient (BNVA) | payer OTHER, SELFPAY | PROVIDERS: PCP Internal Medicine; Visit Provider Internal Medicine | DX: K21.9 Gastro-esophageal reflux disease without esophagitis (principal) | CPT/HCPCS: 96127; 99212 ==

== ENCOUNTER 2024-11-02 09:07 | Outpatient (AMB) | payer OTHER, SELFPAY ==
--- NOTE | 2024-11-02 09:36 | A.OFFVIS_ITS ---
Intake Visit Reasons: 6m/PVR Intake Note: Patient is present for follow up visit weak urinary system/post void dribbling Urology Medications: terazosin (patient stated that he stopped taking x 1 month ago) Blood Thinner: none PVR: 60ml's File Machine Operator Required: Yes File Machine Operator Name: Yana Accompanied by: diplomatic interpreter Allergies No Known Allergies Allergy (Verified 11/02/24 11:49) Medication List - Last Reconciled 11/02/24 by LUCIAN Marquez- budesonide mg inhalation ipratropium bromide 2 sprays intranasal TID ofloxacin 0.3% 2 drps ophthalmic (eye) QID 10 days pantoprazole 40 mg PO QAM 90 days sodium,potassium,mag sulfates 17.5-3.13-1.6 gram (Suprep Bowel Prep Kit) DILUTE; drink 1/2 at 6-8 pm and half at 11 PM- 1AM terazosin 2 mg PO BEDTIME 90 days HPI Comments Details: Abhijeet is a pleasant 49-year-old male patient of Dr. Ayers. He has a past medical history of depression and is deaf. site interpreter Jose M in to provide translation. He presents to the office today for follow-up. In discussion with the patient today he reports having seeked emergency room care services approximately 2 months ago for penile discharge he had been experiencing shortly after unprotected sexual intercourse. He reports he was given a medication IM however feels he continues to have penile irritation and at times foul-smelling semen. I discussed further STD testing with gal however patient would like to follow-up with [facility]. He reports having stopped his terazosin due to recent colonoscopy he had for ongoing issues in bowel changes he had been experiencing. He reports noting urinary symptoms have returned without compliance in terazosin. We discussed restart. In office urinalysis results reviewed with the patient today. PVR 60 mL. He also is reporting lack of libido however is unsure as if this is related to his depression. Previous workup has included a retroperitoneal ultrasound 02/14 noting bilateral kidneys w ith no calculi, lesions, and or hydronephrosis noted. The bladder is well distended and normal. Pre void bladder volume is approximately 450 mL. Postvoid bladder volume is approximately 10 mL. The prostate gland is slightly enlarged and measures approximately 43 mL. Microgen 06/17-- negative. When asked he denies ncontinence, nocturia, hematuria, flank pain, fever, and or chills. In assessment of the patient today the penis is uncircumcised no open areas, lesions, and or drainage noted. He otherwise denies any other issues or concerns at this time. Plan We will proceed with resuming terazosin. Testosterone levels will be assessed to examine hormonal contributions to decreased libido, with further interventions adjusted accordingly. Further exploration of the patient's sexual health and potential STD testing is planned through outside facility. The patient has understood and agrees to this plan, ensuring consistent follow-up due to the postponed hemorrhoidectomy review. Patient was informed and verbally consented to the use of an ambient scribe for clinic note documentation during this visit. Discussion Notes During the visit we discussed resuming terazosin, given the noted symptom changes without it. We discussed checking testosterone to explore libido and fatigue concerns, emphasizing non-invasive options first. I highlighted the importance of STD testing at a preferred facility and acknowledged the possible side effects of previous treatments received. The proposed plan, its risks, and benefits were explained, and the patient acknowledged understanding and consent. [facility] Medical History Depression Deaf Surgical History Hx of colonoscopy History of esophagogastroduodenoscopy (EGD) Umbilical hernia (12/18/22) Social History Housing: Apartment Patient Tobacco Use Status: Never used Tobacco Tobacco use type: Cigarette e-Cigarette/Vaping Use: Never Used Second Hand Smoke Exposure: No service: No Current occupational status: disabled Current occupational exposures/hazards: No Cognitive needs: Yes Hearing needs: No Vision needs: Yes Review of Systems Const Reports no additional complaints Eyes Reports no additional complaints ENT Reports no additional complaints Card Reports no additional complaints Resp Reports no additional complaints GI Reports as per HPI Reports as per HPI Musc Reports no additional complaints Neuro Reports no additional complaints Psych Reports as per HPI Endo Reports no additional complaints Duke/Lymph Reports no additional complaints Aller/Immun Reports no additional complaints Physical Exam Const General: cooperative, healthy appearing, comfortable, no acute distress, well developed, alert and awake Orientation/consciousness: patient oriented x3 Limitations: other limitations (ALS diplomatic interpreter ) HEENT Head: Yes normal to inspection, Yes normocephalic and Yes atraumatic Ears: other (Deaf; site interpreter present to assist with translation) Eyes General: appearance normal, both eyes and all related structures Neck Neck: Yes normal visual inspection and Yes trachea midline Chest Chest palpation & inspection: normal inspection of the chest Resp Effort & Inspection: normal respiratory effort and able to speak in complete sentences Cardio Rate: regular rate GI Inspection: Yes normal to inspection General: Yes no CVA tenderness Penis: normal penis and circumcised Meatus: meatus normal Scrotum: scrotum normal Testes: Testes normal Back/Spine/Pelvis Back: no CVA tenderness Skin General skin exam: no rashes or lesions noted Neuro General: patient oriented x3 Extrem General: Yes normal to inspection Psych Appearance: grossly normal and well kempt Mental Status: mental status grossly normal Speech and movement: Normal speech and movement present and Clear speech present Affect: normal affect Attitude: cooperative Thought process: Normal thought process present Thought content: Normal thought content present Insight: Fair insight present (Psych) Judgement: Fair judgement present (Psych) Office Procedures Post Void Residual Post Residual Void Post Void Residual (PVR): 60 [id number] Void Residual by ultrasound Results AMB Urinalysis, Automated UA Leukoctes 0 Brisa/uL Last Edit by Linda Steel on 11/02/24 10:04 UA Nitrite Last Edit by Linda Steel on 11/02/24 10:04 UA Urobilinogen 0.2 mg/dL Last Edit by Linda Steel on 11/02/24 10:04 UA Protein 0 mg/dL Last Edit by Linda Steel on 11/02/24 10:04 UA pH 6.0 Last Edit by Linda Steel on 11/02/24 10:04 UA Blood 10 Chris/uL Last Edit by Linda Steel on 11/02/24 10:04 UA Specific Gilby 1.010 Last Edit by Linda Steel on 11/02/24 10:04 UA Ketone Last Edit by Linda Steel on 11/02/24 10:04 UA Bilirubin 0 mg/dL Last Edit by Linda Steel on 11/02/24 10:04 UA Glucose 0 mg/dL Last Edit by Linda Steel on 11/02/24 10:04 Results Reviewed Results Reviewed: Laboratory Last Values Urine pH (Auto) 6.0 11/02/24 10:03 Specific Gilby (Auto) 1.010 11/02/24 10:03 Urine Protein (Auto) 0 mg/dL 11/02/24 10:03 Glucose (UA)(Auto) 0 mg/dL 11/02/24 10:03 Urine Blood (Auto) 10 Chris/uL 11/02/24 10:03 Urine Bilirubin (Auto) 0 mg/dL 11/02/24 10:03 Urine Urobilinogen (Auto) 0.2 mg/dL 11/02/24 10:03 Leukocyte Esterase (Auto) 0 Brisa/uL 11/02/24 10:03 Assessment & Plan Assessment & Plan (1) Low libido: Code(s): R68.82 - Decreased libido Category: Medical (2) Incomplete bladder emptying: Code(s): R33.9 - Retention of urine, unspecified Category: Medical (3) Urinary dribbling: Code(s): N39.43 - Post-void dribbling Category: Medical (4) Weak urinary stream: Code(s): R39.12 - Poor urinary stream Category: Medical (5) Urinary urgency: Code(s): R39.15 - Urgency of urination Category: Medical (6) Urinary frequency: Code(s): R35.0 - Frequency of micturition Category: Medical (7) Feeling of incomplete bladder emptying: Code(s): R39.14 - Feeling of incomplete bladder emptying Category: Medical Plan In office urinalysis results reviewed with the patient today; as noted above. PVR 60 mL. We discussed microgen testing for further STD assessment however patient declines; [facility] Restart terazosin. We discussed proper hygiene and area. Will obtain testosterone and PSA for further assessment evaluation. Follow-up in 3-6 months with labs to be completed prior; or sooner with any issues, concerns, and or questions. Orders: Orders AMB Post Void Residual by ultrasound 11/02/24 R33.9 - Retention of urine, unspecified AMB Urinalysis Automated 11/02/24 Z13.9 - Encounter for screening, unspecified Testosterone, Free/Total 11/02/24 R68.82 - Decreased libido Prostate Specific Antigen 11/02/24 R39.14 - Feeling of incomplete bladder emptying Urine Cytology 11/02/24 R31.29 - Other microscopic hematuria Patient Instructions: The patient had an opportunity to ask questions regarding the treatment plan. All questions were answered. Physical exam, labs, and imaging were discussed and reviewed in detail. As well as risks, benefits, and discussion of treatment choices. No major barriers to understanding were identified. The patient expressed understanding and agreement with the above treatment plan. The patient was made aware they should contact our office by phone for worsening of their current condition, the appearance of new symptoms, or with any questions or concerns. Compliance is encouraged with any medications and follow up testing that is ordered. It is a privilege to be allowed the opportunity to participate in? your urological care.? Again, if you have any questions or concerns If you have any questions or concerns please do not hesitate to contact me. The office is [phone]. This note is constructed using voice recognition software. While every effort has been made to ensure accuracy fiberglass fabricator errors may have been included. Yours sincerely, KRYSTLE Marquez Coding Level of Care Code Est Pt Level 4 (46314) Diagnoses Low libido R68.82 Incomplete bladder emptying R33.9 Urinary dribbling N39.43 Weak urinary stream R39.12 Urinary urgency R39.15 Urinary frequency R35.0 Feeling of incomplete bladder emptying R39.14 CPT Codes Post Residual Void - PVR CPT Code: 27246-Jalf Void Residual by ultrasound ([id number]) Time Spent (min) 35
== END 2024-11-02 10:31 | disposition home or self-care (01) ==
LOC: HO.HUSH 09:08
PROVIDERS: PCP Internal Medicine; Visit Provider Nurse Practitioner Family
DX: Z13.9 Encounter for screening, unspecified (principal)

== ENCOUNTER 2024-11-02 09:07 | Outpatient (REF) | payer OTHER, SELFPAY ==
[2024-11-02 11:56] LABS: Alanine Aminotransferase 21 U/L (0-40); Albumin Level 4.5 g/dL (3.5-5.0); Alkaline Phosphatase 73 U/L (39-117); Anion Gap 11 (12-20); Aspartate Amino Transferase 22 U/L (5-37); Bilirubin Total 0.7 mg/dL (0.0-1.0); Blood Urea Nitrogen 8 mg/dL (9-16); Calcium 9.6 mg/dL (8.4-10.2); Carbon Dioxide 29 mmol/L (22-29); Chloride 107 mmol/L (96-108); Estimated Glomerular Filt Rate > 60; Glucose Random 94 mg/dL (60-115); Potassium 3.9 mmol/L (3.3-5.1); Sodium 143 mmol/L (135-145); Total Protein 7.2 g/dL (6.5-8.0)
[2024-11-02 12:06] LABS: Prostate Specific Antigen 0.93 ng/mL (<0.05-4.0)
[2024-11-02 16:44] LABS: Urine Cytology See Pathology rpt
[2024-11-08 18:28] LABS: Testosterone, Free 66.6 pg/mL (35.0-155.0); Testosterone, Total 293 ng/dL (250-1100)
== END 2024-11-02 09:08 | disposition home or self-care (01) ==
LOC: HO.LAB 09:07
PROVIDERS: Internal Medicine Gastroenterology; PCP Internal Medicine; Visit Provider Nurse Practitioner Family
DX: K75.81 Nonalcoholic steatohepatitis (NASH) (principal); K21.9 Gastro-esophageal reflux disease without esophagitis; R39.14 Feeling of incomplete bladder emptying; R68.82 Decreased libido; R31.29 Other microscopic hematuria; Z12.5 Encounter for screening for malignant neoplasm of prostate; R33.9 Retention of urine, unspecified; R39.12 Poor urinary stream; R39.15 Urgency of urination; R35.0 Frequency of micturition; N39.43 Post-void dribbling
CPT/HCPCS: 36415; 51798; 80053; 81003; 84153; 84402; 84403; 84443; 88112; 99212

== ENCOUNTER 2024-11-02 13:15 | Outpatient (REF) | payer OTHER, SELFPAY | END 2024-11-02 13:16 | disposition home or self-care (01) | LOC: HO.LNP 13:15 | PROVIDERS: Visit Provider Nurse Practitioner Family | DX: Z13.89 Encounter for screening for other disorder (principal) ==

== ENCOUNTER 2024-11-27 09:47 | Outpatient (AMB) | payer OTHER, SELFPAY ==
--- NOTE | 2024-11-27 09:56 | A.OFFVIS_ITS ---
Vital Signs 11/27/24 10:14 Height 5 ft 9 in Weight 200 lb 9.93 oz BMI 29.6 BP 140/96 H Blood Pressure Location Lt brachial Position Sitting Pulse 83 Intake Visit Reasons: f/u EGD/COLO Intake Note: Abhijeet presents in the office as a follow up DOUBLE. CC: HE is here today for his results - state she is feeling better than he was before. He had 3 polyps removed. He states little by little. Still having soft stools and he has had some pains on the right here and there but he is feeling okay. 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 RECAP: He had EGD and colo for abdo pain 2019 mild esophagitis mild gastric erythema normal colonoscopy apart from hemorrhoids path- chronic erosive esophagitis rept EGD 06/2023 balloon dilation path: moderate chronic inflammation at GEJ and active esophagitis in distal esophagus other data: US 11/2021-- normal Labs: 2022-nml HGB, mild raised bili and ALT Prior visits : CTe: no evidence of IBD, umbilical henria and diastasis of recti musc noted referred to urology due to urine issues referred to surgery for umbilical hernia repair, which he had done EGD/colo 2024: Endoscopy Findings: lax LES mil esophagitis mild duodenitis Colonoscopy Findings: colon polyp internal hemorrhoids path: active esophagitis and reflux changes tubular adenoma INTERIM: He feels well no kedar concerns no nausea or vomiting his appetite is improved no dypsphagia does have some gas and bloating EXAM: GENERAL: The patient is well developed and nontoxic. VITAL SIGNS:see workflow HEENT: Nonicteric sclerae, PERRLA, EOMI. Oropharynx clear. Moist mucous membranes. Conjunctivae appear well perfused. No thyroid mass. CHEST: Chest wall is nontender. HEART: Regular rate and rhythm without murmurs. LUNGS: Clear to auscultation bilaterally. ABDOMEN: Soft, positive bowel sounds, nontender, no organomegaly.no flank tenderness--moderate umbilical hernia, tender to touch SKIN: nml NEUROLOGIC: Cranial nerves II-XII intact without motor/sensory deficit. psych- nml affect A/P; 1/ GERD, taking PPI, currently controlled with meds 2/ bowel habits are improved with diet changes PLAN: 1/ cont PPI 2/ repeat colo 5-7 yrs 3/ advised trial of probitoics, if sx persist then trail of fodmap starting with lacotse and fructose avoidance PFSH Medical History Depression Deaf Surgical History Hx of colonoscopy History of esophagogastroduodenoscopy (EGD) Umbilical hernia (12/18/22) Social History Housing: Apartment Patient Tobacco Use Status: Never used Tobacco Tobacco use type: Cigarette e-Cigarette/Vaping Use: Never Used Second Hand Smoke Exposure: No service: No Current occupational status: disabled Current occupational exposures/hazards: No Cognitive needs: Yes Hearing needs: No Vision needs: Yes Physical Exam Vital Signs: Last Vital Signs Pulse 83 11/27/24 10:14 BP 140/96 H 11/27/24 10:14 BMI result Body Mass Index 29.6 Assessment & Plan Assessment & Plan (1) GERD (gastroesophageal reflux disease): Code(s): K21.9 - Gastro-esophageal reflux disease without esophagitis Category: Medical Plan as above Coding Level of Care Code Est Pt Level 3 (50329) Diagnoses GERD (gastroesophageal reflux disease) K21.9
[2024-11-27 10:14] VITALS: BP 140/96; PULSE 83; BMI 29.6
--- OUTSIDE RECORDS SUMMARY | 2024-11-27 10:54 | XMS_ITS | Data Portability ---
Author Organization [place] - [facility], Allergy Address [address] [address] Care Team Providers Care Drawer In Stitch Bonding Machine Name Role Phone RAPHAEL BARAHONA Primary Care Provider [phone] Assessment Encounter Date Assessment Date Assessment LastModified by Organization Details LastModified Time 04/21/2024 04/21/2024 No recurrence of polyps or sinusitis. Still some sensation of nasal drainage and PND. Suggest continue budesonide irrigations. Continue budesonide. Recheck allergy labs [email or web address] Not available 04/21/2024 09:38:59 Plan of Treatment Reminders Order Date Submit Date Provider Last Modified By Organization Details Last Modified Time Details Appointments Establ ished 15 2024 08:45A M DEYVI ESPOSITO MD Not available Not available Not available Lab unlist ed lab - allerg ens, zone 1 2023 024 [email or web address] [facility] (Centralized Electronic Ordering - All Locations), Patient Can Go To The Location Of Their Choice, [id number] 04/24/2024 00:13:21 nettle IgE Ab, serum 2023 024 [email or web address] Softwarestein [facility] (Centralized Electronic Ordering - All Locations), Patient Can Go To The Location Of Their Choice, [id number] 05/05/2024 12:38:04 bahia grass IgE Ab, quanti tative , serum 2023 024 [email or web address] [facility] (Centralized Electronic Ordering - All Locations), Patient Can Go To The Location Of Their Choice, [id number] 05/05/2024 12:38:04 bermud a grass ige, serum 2023 024 david [facility] (Centralized Electronic Ordering - All Locations), Patient Can Go To The Location Of Their Choice, [id number] 05/05/2024 12:38:05 jose vallejo in ige, serum 2023 024 david [facility] (Centralized Electronic Ordering - All Locations), Patient Can Go To The Location Of Their Choice, [id number] 05/05/2024 12:38:05 ige, total, serum 2023 024 YAMILET [facility] (Centralized Electronic Ordering - All Locations), Patient Can Go To The Location Of Their Choice, [id number] 04/24/2024 00:13:22 Referral None record ed. Procedures None record ed. Surgeries None record ed. Imaging None record ed. Medication Orders None record ed. Patient TargetsNo targets recorded. Patient Instructions Encounter Date Encounter Id Patient Instructions Last Modified By Organization Details Last Modified Time 10/23/2024 [id number] Overall doing well. No recurrent sinus congestion or fungal disease. Likely some ear irritation due to the irrigations. 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 Results Created Date Observation Date Name Description Value Unit Range Abnormal Flag Note LastModifiedBy Organization Detail LastModifiedTime 04/21/2004/21/2024 ALLER GENS, ZONE 1 class description Commen t Level s of Speci fic IgE Class Descr iptio n of Class ----- ----- ----- ----- ----- -- ----- ----- ----- ----- ----- < 0.10 0 Negat justina 0.10 - 0.31 0/I Equiv ocal/ Low 0.32 - 0.55 I Low 0.56 - 1.40 II Moder ate 1.41 - 3.90 III High 3.91 - 19.00 IV Very High 19.01 - 100.0 0 V Very High >100. 00 Very High Not Available [facility] ([facility]) [address], [place], [place], [address], 04/24/2024 00:13:21 04/21/20 24 04/23/2024 ALLER GENS, ZONE 1 G163-RsR D pteronyssinu s <0.10 kU/L class 0 Not Available [facility] ([facility]) [address], [place], [place], [address], 04/24/2024 00:13:21 04/21/20 24 04/23/2024 ALLER GENS, ZONE 1 Z888-CdW D farinae <0.10 kU/L class 0 Not Available [facility] ([facility]) [address], [place], [place], [address], 04/24/2024 00:13:21 04/21/20 24 04/23/2024 ALLER GENS, ZONE 1 G913-LcS CAT dander <0.10 kU/L class 0 Not Available [facility] ([facility]) [address], [place], [place], [address], 04/24/2024 00:13:21 04/21/20 24 04/23/2024 ALLER GENS, ZONE 1 F969-MiT dog dander <0.10 kU/L class 0 Not Available [facility] ([facility]) [address], [place], [place], [address], 04/24/2024 00:13:21 04/21/20 24 04/23/2024 ALLER GENS, ZONE 1 i763-EmI bermuda grass <0.10 kU/L class 0 Not Available [facility] ([facility]) [address], [place], [place], [address], 04/24/2024 00:13:21 04/21/20 24 04/23/2024 ALLER GENS, ZONE 1 v390-VzE bluegrass, [place] <0.10 kU/L class 0 Not Available [facility] ([facility]) [address] [place], [address], 04/24/2024 00:13:21 04/21/20 24 04/23/2024 ALLER GENS, ZONE 1 g372-KsN bahia grass <0.10 kU/L class 0 Not Available [facility] ([facility]) [address], [place], [address], 04/24/2024 00:13:21 04/21/20 24 04/23/2024 ALLER GENS, ZONE 1 T617-PaR cockroach, lithuanian <0.10 kU/L class 0 Not Available [facility] ([facility]) [address], [place], [address], 04/24/2024 00:13:21 04/21/20 24 04/23/2024 ALLER GENS, ZONE 1 I293-BwJ penicillium chrysogen <0.10 kU/L class 0 Not Available [facility] ([facility]) [address], [place], [address], 04/24/2024 00:13:21 04/21/20 24 04/23/2024 ALLER GENS, ZONE 1 J270-PeW cladosporium herbarum <0.10 kU/L class 0 Not Available [facility] ([facility]) [address], [place], [address], 04/24/2024 00:13:21 04/21/20 24 04/23/2024 ALLER GENS, ZONE 1 S972-OzW aspergillus fumigatus <0.10 kU/L class 0 Not Available [facility] ([facility]) [address], [place], [address], 04/24/2024 00:13:21 04/21/20 24 04/23/2024 ALLER GENS, ZONE 1 Z257-RpP mucor racemosus <0.10 kU/L class 0 Not Available [facility] ([facility]) [address], [place], [address], 04/24/2024 00:13:21 04/21/20 24 04/23/2024 ALLER GENS, ZONE 1 T675-AtS alternaria alternata <0.10 kU/L class 0 Not Available [facility] ([facility]) [address] [place], [address], 04/24/2024 00:13:21 04/21/20 24 04/23/2024 ALLER GENS, ZONE 1 W548-DlT stemphylium herbarum <0.10 kU/L class 0 Not Available [facility] ([facility]) [address], [place], [address], 04/24/2024 00:13:21 04/21/20 24 04/23/2024 ALLER GENS, ZONE 1 D402-ZjW common silver birch <0.10 kU/L class 0 Not Available [facility] ([facility]) [address] [place], [address], 04/24/2024 00:13:21 04/21/20 24 04/23/2024 ALLER GENS, ZONE 1 F435-YtR oak, white <0.10 kU/L class 0 Not Available [facility] ([facility]) [address] [place], [address], 04/24/2024 00:13:21 04/21/20 24 04/23/2024 ALLER GENS, ZONE 1 R648-QlI elm, lithuanian <0.10 kU/L class 0 Not Available [facility] ([facility]) [address] [place], [address], 04/24/2024 00:13:21 04/21/20 24 04/23/2024 ALLER GENS, ZONE 1 M795-WiH maddie, white <0.10 kU/L class 0 Not Available [facility] ([facility]) [address] [place], [address], 04/24/2024 00:13:21 04/21/20 24 04/23/2024 ALLER GENS, ZONE 1 G879-LvF maple/box elder <0.10 kU/L class 0 Not Available [facility] ([facility]) [address], [place], [place], [address], 04/24/2024 00:13:21 04/21/20 24 04/23/2024 ALLER GENS, ZONE 1 T702-XmJ hazelnut tree <0.10 kU/L class 0 Not Available [facility] ([facility]) [address], [place], [place], [address], 04/24/2024 00:13:21 04/21/20 24 04/23/2024 ALLER GENS, ZONE 1 M518-IsW hickory, white <0.10 kU/L class 0 Not Available [facility] ([facility]) [address], [place], [place], [address], 04/24/2024 00:13:21 04/21/20 24 04/23/2024 ALLER GENS, ZONE 1 E801-VxS white mulberry <0.10 kU/L class 0 Not Available [facility] ([facility]) [address], [place], [place], [address], 04/24/2024 00:13:21 04/21/20 24 04/23/2024 ALLER GENS, ZONE 1 Q881-PfA cedar, mountain <0.10 kU/L class 0 Not Available [facility] ([facility]) [address], [place], [place], [address], 04/24/2024 00:13:21 04/21/20 24 04/23/2024 ALLER GENS, ZONE 1 U054-AwO ragweed, short <0.10 kU/L class 0 Not Available [facility] ([facility]) [address], [place], [place], [address], 04/24/2024 00:13:21 04/21/20 24 04/23/2024 ALLER GENS, ZONE 1 U223-UuN mugwort <0.10 kU/L class 0 Not Available [facility] ([facility]) [address], [place], [address], 04/24/2024 00:13:21 04/21/20 24 04/23/2024 ALLER GENS, ZONE 1 S398-OaY plantain, german <0.10 kU/L class 0 Not Available [facility] ([facility]) [address], [place], [place], [address], 04/24/2024 00:13:21 04/21/20 24 04/23/2024 ALLER GENS, ZONE 1 O247-WmI pigweed, common <0.10 kU/L class 0 Not Available [facility] ([facility]) [address], [place], [address], 04/24/2024 00:13:21 04/21/20 24 04/23/2024 ALLER GENS, ZONE 1 G134-NdS sheep sorrel <0.10 kU/L class 0 Not Available [facility] ([facility]) [address], [place], [place], [address], 04/24/2024 00:13:21 04/21/20 24 04/23/2024 ALLER GENS, ZONE 1 N958-IzH nettle <0.10 kU/L class 0 Not Available [facility] ([facility]) [address], [place], [place], [address], 04/24/2024 00:13:21 04/21/20 24 04/23/2024 IMMUN OGLOB ULIN E, TOTAL immunoglobul in E, total 67 IU/mL 6-495 Not Available [facility] ([facility]) [address], [place], [address], 04/24/2024 00:13:22 Result Notes None recorded. Problems Name Problem SNOMED Code Status Onset Date Resolution Date Notes Provider Name and Address Organization Details Recorded Time Posterior rhinorrhe a 87093412 Active 2022 Postnasal drip; Note: Date Diagnosed : 02/08/2023 2:36 PM (R09.82) Not Available [facility] 4 03:12:37 Chronic maxillary sinusitis 69965898 Active 2022 Chronic maxillary sinusitis ; Note: Date Diagnosed : 02/08/2023 5:04 PM (J32.0) Not Available [facility] 4 03:12:36 Deviated nasal septum 840452973 Active 2022 Deviated nasal septum; Note: Date Diagnosed : 04/29/2023 10:40 AM (J34.2) Not Available [facility] 4 03:12:36 Follow-up visit Active 2022 Encounter for follow-up examinati on after completed treatment for condition s other than malignant neoplasm; Note: Date Diagnosed : 3 2:23 PM (Z09) Not Available [facility] 4 03:12:36 Hypertrop hy of nasal turbinate s 73474426 Active 2022 Hypertrop hy of nasal turbinate s; Note: Date Diagnosed : 3 5:07 PM (J34.3) Not Available [facility] 4 03:12:36 Chronic rhinitis 80637794 Active 2022 Chronic rhinitis; Note: Date Diagnosed : 02/08/2023 2:36 PM (J31.0) Not Available [facility] 4 03:12:37 Sensorine ural hearing loss 39789065 Active 2023 Congenita l deafness NOS; Note: Date Diagnosed : 10/22/2023 9:18 AM (H90.5) Not Available [facility] 4 03:12:36 Pain of left temporoma ndibular joint 02818970138 000480 Active 2023 Arthralgi a of left temporoma ndibular joint; Note: Date Diagnosed : 10/22/2023 9:20 AM (M26.622) Not Available [facility] 4 03:12:37 Allergic rhinitis 98951197 Active 2023 DEYVI JONES MD [address], [facility] [place] [address] , [facility] - [facility] 4 09:36:47 Bilateral deafness 746010099 Active 2024 DEYVI JONES MD [address], [place] [place], [address] , [facility] - [facility] 5 09:15:42 Problem Notes None recorded. Procedures Surgical History Date Name Laterality Status Provider Name and Address Organization Details Recorded Time 5 JMSNasal/Sinu s Endoscopy-[facility] [place] surgical cavities completed DEYVI AMBROSE MD [address], [place], [address], [facility] - [facility] 10/23/2024 09:11:07 4 JMSNasal/Sinu s Endoscopy-[facility] [place] surgical cavities completed DEYVI AMBROSE MD [address], [place], [address], [facility] - [facility] 04/21/2024 09:36:07 Imaging Results None recorded. Procedure Notes None recorded. Medical Equipment None Reported. Allergies No known drug allergies Medications Name Sig Start Date Stop Date Status Note LastModified by Organization Details LastModified Time ofloxacin 0.3 % eye drops INSTILL 2 DRP INTO THE EYE(S) 4 TIMES A DAY FOR 10 DAYS 10/23 completed Not Available Not Available Not Available terazosin 1 mg capsule TAKE 2 CAPSULES BY MOUTH EVERY DAY AT BEDTIME 04/21 completed Not Available Not Available Not Available terazosin 2 mg capsule TAKE 1 CAPSULE BY MOUTH EVERY DAY AT BEDTIME FOR 90 DAYS active Not Available Not Available No t Available doxycycli ne monohydra te 100 mg capsule TAKE 1 CAPSULE BY MOUTH TWICE A DAY FOR 7 DAYS 10/23 completed Not Available Not Available Not Available pantopraz ole 40 mg tablet,de layed release TAKE 1 TABLET BY MOUTH TWICE A DAY active Not Available Not Available No t Available clotrimaz ole-betam ethasone 1 %-0.05 % topical cream APPLY TOPICALL Y TWICE A DAY FOR 14 DAYS 04/21 completed Not Available Not Available Not Available budesonid e 0.5 mg/2 mL suspensio n for nebulizat ion INHALE ONE VIAL IN NEILMED RINSE TWICE DAILY. 1/2 BOTTLE PER NOSTRIL 2024 active Not Available Not Available Not Avai lable clotrimaz ole 1 % topical cream USE 1 APPL TOPICALL Y 2 TIMES A DAY FOR 4 WEEKS 04/21 completed Not Available Not Available Not Available ipratropi um bromide 21 mcg (0.03 %) nasal spray Inhale 2 spray three times a day as directed 04/14 completed Medicati on ID: [id number] D uration Value: 30 Brand Name: ipratrop ium bromide Send Method: E-Prescr ibed Sub s Allowed: subs OK Medic ationGen ericName : ipratrop ium bromide Not Available Not Available Not Available amoxicill in 875 mg-potass ium clavulana te 125 mg tablet TAKE 1 TABLET BY MOUTH TWICE A DAY 04/21 completed Not Available Not Available Not Available amoxicill in 500 mg-potass ium clavulana te 125 mg tablet TAKE 1 TABLET BY MOUTH EVERY 12 HOURS FOR 7 DAYS 10/23 completed Not Available Not Available Not Available azelastin e 205.5 mcg (0.15 %) nasal spray [place] 2 spray into both nostrils twice a day 10/23 completed Medicati on ID: [id number] D uration Value: 30 Brand Name: azelasti ne Send Method: E-Prescr ibed Sub s Allowed: subs OK Medic ationGen ericName : azelasti ne Not Available Not Available Not Available sodium,po tassium,m ag sulfates 17.5 gram-3.13 gram-1.6 gram oral soln DILUTE THEN DRINK 1/2 BY MOUTH AT 6-8 PM AND HALF AT 11 PM- 1AM active Not Available Not Available No t Available Vitals Date Recorded Body height Body weight Provider Name and Address Organization Details Last Updated DateTime 10/23/2024 177.8 cm 88628.55 g Maureen Cuellar [place] - [facility] 10/23/2024 08:46:45 Date Recorded Body height Body weight Provider Name and Address Organization Details Last Updated DateTime 04/21/2024 177.8 cm 35272.55 g Maureen Cuellar [place] - [facility] 04/21/2024 08:40:06 Social History None recorded. Functional Status None recorded. Mental Status None recorded. Family History Nothing Reported. Medical History Condition Response Hearing Loss Y Depression Y Past Encounters Encounter ID Performer Location Encounter Start Date Encounter Closed Date Diagnosis/Indication Diagnosis SNOMED-CT Code Diagnosis ICD10 Code Diagnosis Note [id number] DEYVI JONES MD [facility] [address] [place] [address] 04/21/2024 08:36:20 04/21/2024 09:42:53 Chronic rhinitis 55499545 J31.0 Allergic rhinitis 606607 04 J30.9 Posterior rhinorrhea 758 83248 R09.82 [id number] DEYVI JONES MD [facility] [address] [address] 10/23/2024 08:43:38 10/23/2024 09:19:01 Chronic maxillary sinusitis 08131098 J32.0 Bilateral deafness 40350 4009 H91.93 Health Concerns Section Related Observation LastModified by Organization Detai ls LastModified Time None Recorded Concern Status LastModified by Organization Details LastModified Time None Recorded Advance Directives Directive None Recorded Payers Encounter Date Sequence Insurance Name Policy Number Policy Raza Covered Member ID Raza Member ID Guarantor Name 04/21/2024 1 [facility] - DOS ON OR AFTER 2022 - ONE CARE (MEDICARE REPLACEMENT/ADV ANTAGE - HMO) Abhijeet baumann [id number] Abhijeet meraz 10/23/2024 1 [facility] - DOS ON OR AFTER 2022 - ONE CARE (MEDICARE REPLACEMENT/ADV ANTAGE - HMO) Abhijeet baumann [id number] Abhijeet meraz Notes Date Note Type Note Provider Name and Address Organization Details Recorded Time 04/21/2024 text/html History of septoplasty, turbinate reduction in maxillary antrostomy May 2023.Irrigating with saline/budesonide 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 Occasional mucous and blood tinged secretions. DEYVI AMBROSE MD [address] [facility],[place] [address], [place], [address], [facility] - [facility] 04/21/2024 09:40:43 10/23/2024 text/html Hx of chronic sinus/polyps/fungus right side. 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 Occasional mucous and blood tinged secretions. DEYVI AMBROSE MD [address] [facility] [address] [address],[facility] [address], [place], [address], [facility] - [facility] 10/23/2024 09:19:07
== END 2024-11-27 10:36 | disposition home or self-care (01) ==
LOC: HO.HGI 09:47
PROVIDERS: PCP Internal Medicine; Visit Provider Internal Medicine Gastroenterology
DX: K21.9 Gastro-esophageal reflux disease without esophagitis (principal)
CPT/HCPCS: 99213

== ENCOUNTER → 2024-11-27 09:47 | Outpatient (BNVA) | payer OTHER, SELFPAY | PROVIDERS: PCP Internal Medicine; Visit Provider Internal Medicine Gastroenterology | DX: K21.9 Gastro-esophageal reflux disease without esophagitis (principal) | CPT/HCPCS: 99212 ==

== ENCOUNTER 2025-02-01 09:29 | Outpatient (AMB) | payer OTHER, SELFPAY ==
--- NOTE | 2025-02-01 09:55 | A.OFFVIS_ITS ---
Intake Visit Reasons: 3m/PSA/Testo(set) Intake Note: Patient presents today for follow up on: retention, urinary dribbling, urgency, frequency, low libo, and lab results PSA: 0.93 Testosterone: 293; Free Testosterone: 6.66 Urology Medications: terazosin (patient stated takes when he thinks that he needs it) Blood Thinner: none PVR: 11ml's Patternmaker Required: Yes Patternmaker Name: ASL Accompanied by: camp guard Allergies No Known Allergies Allergy (Verified 02/01/25 10:52) Medication List - Last Reconciled 02/01/25 by KRYSTLE Marquez budesonide mg inhalation pantoprazole 40 mg PO BID terazosin 2 mg PO BEDTIME 90 days HPI Comments Details: Abhijeet is a pleasant 49-year-old male patient of Dr. Ayers. He has a past medical history of depression and is deaf. tax auditor Familia mari to provide translation. He presents to the office today for follow-up. In discussion with the patient today he reports to be doing and feeling well. He reports ongoing generalized musculoskeletal discomfort throughout his back and body. He reports continuing to follow-up with GI as planned. He continues to feel intermittent episodes of incomplete bladder emptying. He reports utilizing terazosin as needed. We did discuss importance of taking medications as prescribed. Recent PSA and testosterone results were reviewed: PSA: 11/17 0.9 Testosterone: 11/17 293 Free testosterone: 11/17 66.6 Urine Cytology 11/17 :Negative for high-grade urothelial carcinoma. In office urinalysis results reviewed with the patient today. PVR 11 mL. Previous workup has included a retroperitoneal ultrasound 02/14 noting bilateral kidneys with no calculi, lesions, and or hydronephrosis noted. The bladder is well distended and normal. Pre void bladder volume is approximately 450 mL. Postvoid bladder volume is approximately 10 mL. The prostate gland is slightly enlarged and measures approximately 43 mL. Microgen 06/17 negative. When asked he denies incontinence, nocturia, hematuria, fever, and or chills. We discussed further workup of borderline hypogonadism to include LH, SHBG, FSH, estradiol, and prolactin for further assessment evaluation. He otherwise offers no other issues or concerns at this time. [facility], [facility] Medical History Depression Deaf Surgical History Hx of colonoscopy History of esophagogastroduodenoscopy (EGD) Umbilical hernia (12/18/22) Social History Housing: Apartment Patient Tobacco Use Status: Never used Tobacco Tobacco use type: Cigarette e-Cigarette/Vaping Use: Never Used Second Hand Smoke Exposure: No service: No Current occupational status: disabled Current occupational exposures/hazards: No Cognitive needs: Yes Hearing needs: No Vision needs: Yes Review of Systems Const Reports no additional complaints Eyes Reports no additional complaints ENT Reports no additional complaints Card Reports no additional complaints Resp Reports no additional complaints GI Reports as per HPI Reports as per HPI Musc Reports no additional complaints Neuro Reports no additional complaints Psych Reports as per HPI Endo Reports no additional complaints Duke/Lymph Reports no additional complaints Aller/Immun Reports no additional complaints Physical Exam Const General: cooperative, healthy appearing, comfortable, no acute distress, well developed, alert and awake Orientation/consciousness: patient oriented x3 Limitations: other limitations (ALS camp guard ) HEENT Head: Yes normal to inspection, Yes normocephalic and Yes atraumatic Ears: other (Deaf; tax auditor present to assist with translation) Eyes General: appearance normal, both eyes and all related structures Neck Neck: Yes normal visual inspection and Yes trachea midline Chest Chest palpation & inspection: normal inspection of the chest Resp Effort & Inspection: normal respiratory effort and able to speak in complete sentences Cardio Rate: regular rate GI Inspection: Yes normal to inspection General: Yes no CVA tenderness Back/Spine/Pelvis Back: no CVA tenderness Skin General skin exam: no rashes or lesions noted Neuro General: patient oriented x3 Extrem General: Yes normal to inspection Psych Appearance: grossly normal and well kempt Mental Status: mental status grossly normal Speech and movement: Normal speech and movement present and Clear speech present Affect: normal affect Attitude: cooperative Thought process: Normal thought process present Thought content: Normal thought content present Insight: Fair insight present (Psych) Judgement: Fair judgement present (Psych) Office Procedures Post Void Residual Post Residual Void Post Void Residual (PVR): 11 [id number] Void Residual by ultrasound Results AMB Urinalysis, Automated UA Leukoctes 0 Brisa/uL Last Edit by [facility] on 02/01/25 10:23 UA Nitrite Last Edit by [facility] on 02/01/25 10:23 UA Urobilinogen 0.2 mg/dL Last Edit by [facility] on 02/01/25 10:2 3 UA Protein 15 mg/dL Last Edit by [facility], [facility] on 02/01/25 10:23 UA pH 6.[address] Edit [address] [facility] on 02/01/25 10:23 UA Blood 10 Chris/uL Last Edit by [facility], [facility] on 02/01/25 10:23 UA Specific [place] 1.[address] Edit [address] [facility] on 02/01/25 10: 23 UA Ketone Last Edit by [facility] on 02/01/25 10:23 UA Bilirubin 0 mg/dL Last Edit by [facility], [facility] on 02/01/25 10:23 UA Glucose 0 mg/dL Last Edit by [facility], [facility] on 02/01/25 10:23 Results Reviewed Results Reviewed: Laboratory Last Values Urine pH (Auto) 6.0 02/01/25 10:22 Specific [place] (Auto) 1.020 02/01/25 10:22 Urine Protein (Auto) 15 mg/dL 02/01/25 10:22 Glucose (UA)(Auto) 0 mg/dL 02/01/25 10:22 Urine Blood (Auto) 10 Chris/uL 02/01/25 10:22 Urine Bilirubin (Auto) 0 mg/dL 02/01/25 10:22 Urine Urobilinogen (Auto) 0.2 mg/dL 02/01/25 10:22 Leukocyte Esterase (Auto) 0 Brisa/uL 02/01/25 10:22 Assessment & Plan Assessment & Plan (1) Hypogonadism in male: Code(s): E29.1 - Testicular hypofunction Category: Medical Plan In office urinalysis results with the patient today; as noted above. PVR 11 mL. We discussed borderline hypogonadism and further workup to include obtaining labs. All questions were answered. We did discussed importance of taking medications as prescribed. All questions were answered. Follow-up in 1-3 months with labs to be completed prior; or sooner with any issues, concerns, and or questions. Orders: Orders AMB Urinalysis Automated Today Z13.9 - Encounter for screening, unspecified AMB Post Void Residual by ultrasound Today R39.12 - Poor urinary stream Testosterone, Free/Total Today E29.1 - Testicular hypofunction Sex Hormone Binding Globulin Today E29.1 - Testicular hypofunction Estradiol Ultra Sensitive Today E29.1 - Testicular hypofunction Lutenizing Hormone Today E29.1 - Testicular hypofunction Prolactin Today E29.1 - Testicular hypofunction Follicle Stimulating Hormone Today E29.1 - Testicular hypofunction Patient Instructions: The patient had an opportunity to ask questions regarding the treatment plan. All questions were answered. Physical exam, labs, and imaging were discussed and reviewed in detail. As well as risks, benefits, and discussion of treatment choices. No major barriers to understanding were identified. The patient expressed understanding and agreement with the above treatment plan. The patient was made aware they should contact our office by phone for worsening of their current condition, the appearance of new symptoms, or with any questio ns or concerns. Compliance is encouraged with any medications and follow up testing that is ordered. It is a privilege to be allowed the opportunity to participate in? your urological care.? Again, if you have any questions or concerns If you have any questions or concerns please do not hesitate to contact me. The office is [phone]. This note is constructed using voice recognition software. While every effort has been made to ensure accuracy universal winding machine operator errors may have been included. Yours sincerely, KRYSTLE Marquez Coding Level of Care Code Est Pt Level 3 (05614) Complex EM visit Add On G2211 Diagnoses Hypogonadism in male E29.1 CPT Codes Post Residual Void - PVR CPT Code: 63236-Oxqr Void Residual by ultrasound ([id number])
--- OUTSIDE RECORDS SUMMARY | 2025-02-01 09:56 | XMS_ITS | Data Portability ---
Author Organization [place] - [facility], Allergy Address [address] [address] Care Team Providers Care Educational Manager Name Role Phone JUN RAPHAEL Primary Care Provider [phone] Assessment Encounter Date Assessment Date Assessment LastModified [...] Go To The Location Of Their Choice, [id number] 04/24/2024 00:13:21 nettle IgE Ab, serum 2023 024 [email or web address] [facility] (Centralized Electronic Ordering - All Locations), Patient Can Go To The Location Of Their Choice, [id number] 05/05/2024 12:38:04 bahia grass IgE Ab, quanti tative , serum 2023 024 jschreibstein [facility] (Centralized Electronic Ordering - All Locations), Patient Can Go To The Location Of Their Choice, [id number] 05/05/2024 12:38:04 maurice ojeda grass ige, serum 2023 024 david [facility] (Centralized Electronic Ordering - All Locations), Patient Can Go To The Location Of Their Choice, [id number] 05/05/2024 12:38:05 jose vallejo in ige, serum 2023 024 david [facility] (Centralized Electronic Ordering - All Locations), Patient Can Go To The Location Of Their Choice, [id number] 05/05/2024 12:38:05 ige, total, serum 2023 024 YAMILET [facility] (Centralized Electronic Ordering - All Locations), Patient Can Go To The Location Of Their Choice, [id number] 04/24/2024 00:13:22 Referral None record ed. Procedures None record ed. Surgeries None record ed. Imaging None record ed. Medication Orders None record ed. Patient TargetsNo targets recorded. Patient Instructions Encounter Date Encounter Id Patient Instructions Last Modified By Organization Details Last Modified Time 10/23/2024 [id number] Overall doing well. No recurrent sinus congestion or fungal disease. Likely some ear irritation due to the irrigations. Reduce irrigations to once daily and go slower to reduce ear irritation programmer analyst health it Alla [id number] david Not available 10/23/2024 09:18:49 Reason for Referral None Reported. Results Created Date Observation Date Name Description Value Unit Range Abnormal Flag Note LastModifiedBy Organization Detail LastModifiedTime 04/21/20 24 04/21/2024 ALLER GENS, ZONE 1 class description Commen [...] >100. 00 Very High Not Available [facility] ([facility]) [address] [facility], [place], [address], 04/24/2024 00:13:21 04/21/20 24 04/23/2024 ALLER GENS, ZONE 1 V107-PdZ D pteronyssinu s <0.10 kU/L class 0 Not Available [facility] ([facility]) [address] [facility], [place], [address], 04/24/2024 00:13:21 04/21/20 24 04/23/2024 ALLER GENS, ZONE 1 G422-UeF D farinae <0.10 kU/L class 0 Not Available [facility] ([facility]) [address] [facility], [place], [address], 04/24/2024 00:13:21 04/21/20 24 04/23/2024 ALLER GENS, ZONE 1 R836-AkG CAT dander <0.10 kU/L class 0 Not Available [facility] ([facility]) [address] [facility], [place], [address], 04/24/2024 00:13:21 04/21/20 24 04/23/2024 ALLER GENS, ZONE 1 R199-LpT dog dander <0.10 kU/L class 0 Not Available [facility] ([facility]) [address] [place], [address], 04/24/2024 00:13:21 04/21/20 24 04/23/2024 ALLER GENS, ZONE 1 r502-EgL bermuda grass <0.10 kU/L class 0 Not Available [facility] ([facility]) [address] [facility] [place], [address], 04/24/2024 00:13:21 04/21/20 24 04/23/2024 ALLER GENS, ZONE 1 d479-QjD bluegrass, [place] <0.10 kU/L class 0 Not Available [facility] ([facility]) [address] [place], [address], 04/24/2024 00:13:21 04/21/20 24 04/23/2024 ALLER GENS, ZONE 1 p137-UaV bahia grass <0.10 kU/L class 0 Not Available [facility] ([facility]) [address] [facility] [place], [address], 04/24/2024 00:13:21 04/21/20 24 04/23/2024 ALLER GENS, ZONE 1 U014-QhZ cockroach, northern irish <0.10 kU/L class 0 Not Available [facility] ([facility]) [address] [facility] [place], [address], 04/24/2024 00:13:21 04/21/20 24 04/23/2024 ALLER GENS, ZONE 1 Q036-LwD penicillium chrysogen <0.10 kU/L class 0 Not Available [facility] ([facility]) [address] [place], [address], 04/24/2024 00:13:21 04/21/20 24 04/23/2024 ALLER GENS, ZONE 1 I220-IzW cladosporium herbarum <0.10 kU/L class 0 Not Available [facility] ([facility]) [address] [place], [address], 04/24/2024 00:13:21 04/21/20 24 04/23/2024 ALLER GENS, ZONE 1 C506-FkE aspergillus fumigatus <0.10 kU/L class 0 Not Available [facility] ([facility]) [address] [place], [address], 04/24/2024 00:13:21 04/21/20 24 04/23/2024 ALLER GENS, ZONE 1 L394-CrF mucor racemosus <0.10 kU/L class 0 Not Available [facility] ([facility]) [address] [place], [address], 04/24/2024 00:13:21 04/21/20 24 04/23/2024 ALLER GENS, ZONE 1 R507-ObQ alternaria alternata <0.10 kU/L class 0 Not Available [facility] ([facility]) [address], [place], [address], 04/24/2024 00:13:21 04/21/20 24 04/23/2024 ALLER GENS, ZONE 1 U019-RuU stemphylium herbarum <0.10 kU/L class 0 Not Available [facility] ([facility]) [address], [place], [address], 04/24/2024 00:13:21 04/21/20 24 04/23/2024 ALLER GENS, ZONE 1 Y078-UcK common silver birch <0.10 kU/L class 0 Not Available [facility] ([facility]) [address], [place], [address], 04/24/2024 00:13:21 04/21/20 24 04/23/2024 ALLER GENS, ZONE 1 B280-PuF oak, white <0.10 kU/L class 0 Not Available [facility] ([facility]) [address], [place], [address], 04/24/2024 00:13:21 04/21/20 24 04/23/2024 ALLER GENS, ZONE 1 O828-WxD elm, northern irish <0.10 kU/L class 0 Not Available [facility] ([facility] [facility]) [address], [place], [address], 04/24/2024 00:13:21 04/21/20 24 04/23/2024 ALLER GENS, ZONE 1 Y709-WwV maddie, white <0.10 kU/L class 0 Not Available [facility] ([facility] [facility]) [address] [facility], [place], [address], 04/24/2024 00:13:21 04/21/20 24 04/23/2024 ALLER GENS, ZONE 1 D366-IhS maple/box elder <0.10 kU/L class 0 Not Available [facility] ([facility] [facility]) [address], [place], [address], 04/24/2024 00:13:21 04/21/20 24 04/23/2024 ALLER GENS, ZONE 1 W715-WoF hazelnut tree <0.10 kU/L class 0 Not Available [facility] ([facility]) [address], [place], [address], 04/24/2024 00:13:21 04/21/20 24 04/23/2024 ALLER GENS, ZONE 1 O753-XoF hickory, white <0.10 kU/L class 0 Not Available [facility] ([place] [facility]) [address], [place], [address], 04/24/2024 00:13:21 04/21/20 24 04/23/2024 ALLER GENS, ZONE 1 N363-OaH white mulberry <0.10 kU/L class 0 Not Available [facility] ([facility] [facility]) [address], [place], [address], 04/24/2024 00:13:21 04/21/20 24 04/23/2024 ALLER GENS, ZONE 1 U583-MrP cedar, mountain <0.10 kU/L class 0 Not Available [facility] ([place] [facility]) [address], [place], [address], 04/24/2024 00:13:21 04/21/20 24 04/23/2024 ALLER GENS, ZONE 1 I894-IrL ragweed, short <0.10 kU/L class 0 Not Available [facility] ([place] [facility]) [address], [place], [address], 04/24/2024 00:13:21 04/21/20 24 04/23/2024 ALLER GENS, ZONE 1 Z031-YkS mugwort <0.10 kU/L class 0 Not Available [facility] ([facility]) [address] [facility] [place], [address], 04/24/2024 00:13:21 04/21/20 24 04/23/2024 ALLER GENS, ZONE 1 X448-OhT plantain, tajik <0.10 kU/L class 0 Not Available [facility] ([facility]) [address] [facility], [place], [address], 04/24/2024 00:13:21 04/21/20 24 04/23/2024 ALLER GENS, ZONE 1 C430-CzZ pigweed, common <0.10 kU/L class 0 Not Available [facility] ([facility]) [address] [facility], [place], [address], 04/24/2024 00:13:21 04/21/20 24 04/23/2024 ALLER GENS, ZONE 1 Y370-CaR sheep sorrel <0.10 kU/L class 0 Not Available [facility] ([facility]) [address] [facility], [place], [address], 04/24/2024 00:13:21 04/21/20 24 04/23/2024 ALLER GENS, ZONE 1 H464-ItZ nettle <0.10 kU/L class 0 Not Available [facility] ([facility]) [address] [facility], [place], [address], 04/24/2024 00:13:21 04/21/20 24 04/23/2024 IMMUN OGLOB ULIN E, TOTAL immunoglobul in E, total 67 IU/mL 6-495 Not Available [facility]) [address] [facility] [place], [address], 04/24/2024 00:13:22 Result Notes None recorded. Problems Name Problem SNOMED Code Status Onset Date Resolution Date Notes Provider Name and Address Organization Details Recorded Time Posterior rhinorrhe a 50803213 Active 2022 Postnasal drip; Note: Date Diagnosed : 02/08/2023 2:36 PM (R09.82) Not Available [facility] 4 03:12:37 Chronic maxillary sinusitis 00416150 Active 2022 Chronic maxillary sinusitis ; Note: Date Diagnosed : 02/08/2023 5:04 PM (J32.0) Not Available [facility] 4 03:12:36 Deviated nasal septum 575839730 Active 2022 Deviated nasal septum; Note: Date Diagnosed : 04/29/2023 10:40 AM (J34.2) Not Available [facility] 4 03:12:36 Follow-up visit Active 2022 Encounter for follow-up examinati on after completed treatment for condition s other than malignant neoplasm; Note: Date Diagnosed : 3 2:23 PM (Z09) Not Available [facility] 4 03:12:36 Hypertrop hy of nasal turbinate s 27085211 Active 2022 Hypertrop hy of nasal turbinate s; Note: Date Diagnosed : 3 5:07 PM (J34.3) Not Available [facility] 4 03:12:36 Chronic rhinitis 94848912 Active 2022 Chronic rhinitis; Note: Date Diagnosed : 02/08/2023 2:36 PM (J31.0) Not Available [facility] 4 03:12:37 Sensorine ural hearing loss 92425842 Active 2023 Congenita l deafness NOS; Note: Date Diagnosed : 10/22/2023 9:18 AM (H90.5) Not Available [facility] 4 03:12:36 Pain of left temporoma ndibular joint 44409261984 668258 Active 2023 Arthralgi a of left temporoma ndibular joint; Note: Date Diagnosed : 10/22/2023 9:20 AM (M26.622) Not Available [facility] 4 03:12:37 Allergic rhinitis 86512802 Active 2023 DEYVI JONES MD [address], [place], [address] , [facility] - [facility] 4 09:36:47 Bilateral deafness 206987349 Active 2024 DEYVI JONES MD [address], [facility] [place], [address] , [facility] - [facility] 5 09:15:42 Problem Notes None recorded. Procedures Surgical History Date Name Laterality Status Provider Name and Address Organization Details Recorded Time 5 JMSNasal/Sinu s Endoscopy-[facility]LO OR surgical cavities completed DEYVI AMBROSE MD [address], [place], [address], [facility] - [facility] 10/23/2024 09:11:07 4 JMSNasal/Sinu s Endoscopy-[facility] OR surgical cavities completed DEYVI AMBROSE MD [address] [facility], [place], [address], [facility] - [facility] 04/21/2024 09:36:07 Imaging Results None recorded. Procedure [...] mg/2 mL suspensio n for nebulizat ion USE ONE VIAL IN NEILMED RINSE TWICE DAILY. 1/2 BOTTLE PER NOSTRIL. 2024 active Not Available Not Available Not Avai lable clotrimaz ole 1 % topical cream USE 1 APPL TOPICALL Y 2 TIMES A DAY FOR 4 WEEKS 04/21 completed Not Available Not Available Not Available ipratropi um bromide 21 mcg (0.03 %) nasal spray Inhale 2 spray three times a day as directed 04/14 completed Medicati on ID: [id number] D uration Value: 30 Brand Name: ipratrop [...] e 205.5 mcg (0.15 %) nasal spray [place] 2 spray into both nostrils twice a day 10/23 completed Medicati on ID: [id number] D uration Value: 30 Brand Name: azelasti [...] Details Last Updated DateTime 10/23/2024 177.8 cm 11444.55 g Maureen Cuellar [place] - [facility] 10/23/2024 08:46:45 Date Recorded Body height Body weight Provider Name and Address Organization Details Last Updated DateTime 04/21/2024 177.8 cm 09418.55 g Maureen Cuellar [place] - [facility] 04/21/2024 08:40:06 Social History None recorded. Functional Status None recorded. Mental Status None recorded. Family History Nothing Reported. Medical History Condition Response Hearing Loss Y Depression Y Past Encounters Encounter ID Performer Location Encounter Start Date Encounter Closed Date Diagnosis/Indication Diagnosis SNOMED-CT Code Diagnosis ICD10 Code Diagnosis Note [id number] DEYVI JONES MD [facility] [address] [address] 04/21/2024 08:36:20 04/21/2024 09:42:53 Chronic rhinitis 70152102 J31.0 Allergic rhinitis 271438 04 J30.9 Posterior rhinorrhea 758 70435 R09.82 [id number] DEYVI JONES MD [facility] [address] [address] 10/23/2024 08:43:38 10/23/2024 09:19:01 Chronic maxillary sinusitis 66661398 J32.0 Bilateral deafness 73997 4009 H91.93 Health Concerns Section Related Observation LastModified by Organization Detai ls LastModified Time None Recorded Concern Status LastModified by Organization Details LastModified Time None Recorded Advance Directives Directive None Recorded Payers Insurance Date Sequence Insurance Name Policy Number Policy Raza Covered Member ID Rzaa Member ID Guarantor Name 10/23/2024 1 [facility] - DOS ON OR AFTER 2022 - ONE CARE (MEDICARE REPLACEMENT/ADV ANTAGE - HMO) Abhijeet baumann [id number] Abhijeet meraz Notes Date Note Type Note Provider Name and Address Organization Details Recorded Time 04/21/2024 text/html History of septoplasty, turbinate reduction in maxillary antrostomy May 2023.Irrigating with saline/budesonide programmer analyst health it present Doing well with BID irrigations. Occasional mucous and blood tinged secretions. DEYVI AMBROSE MD [address] [place] [address], [address], [place] - [facility] 04/21/2024 09:40:43 10/23/2024 text/html Hx of chronic sinus/polyps/fungus right side. Still some PND and throat irritationDoing irrigations with budesonide BID History of septoplasty, turbinate reduction in maxillary antrostomy May 2023 for fungal diseaseIrrigating with saline/budesonide programmer analyst health it present Doing well with BID irrigations. Occasional mucous and blood tinged secretions. DEYVI AMBROSE MD [address] [place] [address], [place], [address], [place] [facility] 10/23/2024 09:19:07
== END 2025-02-01 10:38 | disposition home or self-care (01) ==
LOC: HO.HUSH 09:29
PROVIDERS: PCP Internal Medicine; Visit Provider Nurse Practitioner Family
DX: Z13.9 Encounter for screening, unspecified (principal); E29.1 Testicular hypofunction
CPT/HCPCS: 99213; G2211

== ENCOUNTER → 2025-02-01 09:29 | Outpatient (BNVA) | payer OTHER, SELFPAY | PROVIDERS: PCP Internal Medicine; Visit Provider Nurse Practitioner Family | DX: E29.1 Testicular hypofunction (principal) | CPT/HCPCS: 51798; 81003; 99212 ==

== ENCOUNTER 2025-02-06 11:15 | Outpatient (REF) | payer OTHER, SELFPAY ==
--- OUTSIDE RECORDS SUMMARY | 2025-02-06 12:39 | XMS_ITS | Data Portability ---
Author Organization [place] - [facility], Allergy Address [address] [address] Care Team Providers Care Transportation Services Representative Name Role Phone JUN RAPHAEL Primary Care Provider [phone] Assessment Encounter Date Assessment Date Assessment LastModified [...] Go To The Location Of Their Choice, [id number] 04/24/2024 00:13:21 nettle IgE Ab, serum 2023 024 [email or web address] [facility] (Centralized Electronic Ordering - All Locations), Patient Can Go To The Location Of Their Choice, [id number] 05/05/2024 12:38:04 bahia grass IgE Ab, quanti tative , serum 2023 024 jschreibstein [facility] ([facility] Ordering - All Locations), Patient Can Go To The Location Of Their Choice, [id number] 05/05/2024 12:38:04 maurice ojeda grass ige, serum 2023 024 david [facility] ([facility] Ordering - All Locations), Patient Can Go To The Location Of Their Choice, [id number] 05/05/2024 12:38:05 jose vallejo in ige, serum 2023 024 david [facility] ([facility] Ordering - All Locations), Patient Can Go To The Location Of Their Choice, [id number] 05/05/2024 12:38:05 ige, total, serum 2023 024 [email or web address] [facility] ([facility] Ordering - All Locations), Patient Can Go To The Location Of Their Choice, [id number] 04/24/2024 00:13:22 Referral None record ed. Procedures None record ed. Surgeries None record ed. Imaging None record ed. Medication Orders None record ed. Patient TargetsNo targets recorded. Patient Instructions Encounter Date Encounter Id Patient Instructions Last Modified By Organization Details Last Modified Time 10/23/2024 [id number] Overall doing well. No recurrent sinus congestion or fungal disease. Likely some ear irritation due to the irrigations. Reduce irrigations to once daily and go slower to reduce ear irritation plaster helper Alla [id number] david Not available 10/23/2024 09:18:49 Reason for [...] >100. 00 Very High Not Available [facility] ([facility]) [address] [facility], [place], [address], 04/24/2024 00:13:21 04/21/20 24 04/23/2024 ALLER GENS, ZONE 1 V528-CsV D pteronyssinu s <0.10 kU/L class 0 Not Available [facility] ([facility]) [address] [facility], [place], [address], 04/24/2024 00:13:21 04/21/20 24 04/23/2024 ALLER GENS, ZONE 1 J640-ArB D farinae <0.10 kU/L class 0 Not Available [facility] ([facility]) [address] [facility], [place], [address], 04/24/2024 00:13:21 04/21/20 24 04/23/2024 ALLER GENS, ZONE 1 R648-KqO CAT dander <0.10 kU/L class 0 Not Available [facility] ([facility]) [address] [facility], [place], [address], 04/24/2024 00:13:21 04/21/20 24 04/23/2024 ALLER GENS, ZONE 1 S830-SrD dog dander <0.10 kU/L class 0 Not Available [facility] ([facility]) [address] [place], [address], 04/24/2024 00:13:21 04/21/20 24 04/23/2024 ALLER GENS, ZONE 1 a459-CeR bermuda grass <0.10 kU/L class 0 Not Available [facility] ([facility]) [address] [facility] [place] [place], [address], 04/24/2024 00:13:21 04/21/20 24 04/23/2024 ALLER GENS, ZONE 1 v459-VuM bluegrass, k[place] <0.10 kU/L class 0 Not Available [facility] ([facility]) [address] [place], [address], 04/24/2024 00:13:21 04/21/20 24 04/23/2024 ALLER GENS, ZONE 1 f005-SbR bahia grass <0.10 kU/L class 0 Not Available [facility] ([facility]) [address] [facility] [place], [address], 04/24/2024 00:13:21 04/21/20 24 04/23/2024 ALLER GENS, ZONE 1 D063-AdC cockroach, mozambican <0.10 kU/L class 0 Not Available [facility] ([facility]) [address] [facility] [place] [place], [address], 04/24/2024 00:13:21 04/21/20 24 04/23/2024 ALLER GENS, ZONE 1 C415-ImT penicillium chrysogen <0.10 kU/L class 0 Not Available [facility] ([facility]) [address] [place], [address], 04/24/2024 00:13:21 04/21/20 24 04/23/2024 ALLER GENS, ZONE 1 A157-JhK cladosporium herbarum <0.10 kU/L class 0 Not Available [facility] ([facility]) [address] [place], [address], 04/24/2024 00:13:21 04/21/20 24 04/23/2024 ALLER GENS, ZONE 1 I470-DjH aspergillus fumigatus <0.10 kU/L class 0 Not Available [facility] ([facility]) [address] [place], [address], 04/24/2024 00:13:21 04/21/20 24 04/23/2024 ALLER GENS, ZONE 1 D137-OyL mucor racemosus <0.10 kU/L class 0 Not Available [facility] ([facility] [facility]) [address] [place], [address], 04/24/2024 00:13:21 04/21/20 24 04/23/2024 ALLER GENS, ZONE 1 V348-KgT alternaria alternata <0.10 kU/L class 0 Not Available [facility] ([facility] [facility]) [address], [place], [address], 04/24/2024 00:13:21 04/21/20 24 04/23/2024 ALLER GENS, ZONE 1 D752-BeV stemphylium herbarum <0.10 kU/L class 0 Not Available [facility] ([facility]) [address], [place], [address], 04/24/2024 00:13:21 04/21/20 24 04/23/2024 ALLER GENS, ZONE 1 R852-FvG common silver birch <0.10 kU/L class 0 Not Available [facility] ([facility] [facility]) [address], [place], [address], 04/24/2024 00:13:21 04/21/20 24 04/23/2024 ALLER GENS, ZONE 1 L787-NdG oak, white <0.10 kU/L class 0 Not Available [facility] ([place] [facility]) [address], [place], [address], 04/24/2024 00:13:21 04/21/20 24 04/23/2024 ALLER GENS, ZONE 1 M424-QnA elm, mozambican <0.10 kU/L class 0 Not Available [facility] ([place] [facility]) [address], [place], [address], 04/24/2024 00:13:21 04/21/20 24 04/23/2024 ALLER GENS, ZONE 1 O592-RdZ maddie, white <0.10 kU/L class 0 Not Available [facility] ([place] [facility]) [address] [facility], [place], [address], 04/24/2024 00:13:21 04/21/20 24 04/23/2024 ALLER GENS, ZONE 1 P582-KkH maple/box elder <0.10 kU/L class 0 Not Available [facility] ([place] [facility]) [address], [place], [address], 04/24/2024 00:13:21 04/21/20 24 04/23/2024 ALLER GENS, ZONE 1 K817-SeP hazelnut tree <0.10 kU/L class 0 Not Available [facility] ([place] [facility]) [address], [place], [address], 04/24/2024 00:13:21 04/21/20 24 04/23/2024 ALLER GENS, ZONE 1 M827-XeT hickory, white <0.10 kU/L class 0 Not Available [facility] ([place] [facility]) [address], [place], [address], 04/24/2024 00:13:21 04/21/20 24 04/23/2024 ALLER GENS, ZONE 1 I786-HlW white mulberry <0.10 kU/L class 0 Not Available [facility] ([place] [facility]) [address], [place], [address], 04/24/2024 00:13:21 04/21/20 24 04/23/2024 ALLER GENS, ZONE 1 A774-DpR cedar, mountain <0.10 kU/L class 0 Not Available [facility] ([place] [facility]) [address], [place], [address], 04/24/2024 00:13:21 04/21/20 24 04/23/2024 ALLER GENS, ZONE 1 Z535-HmP ragweed, short <0.10 kU/L class 0 Not Available [facility] ([place] [facility]) [address], [place], [address], 04/24/2024 00:13:21 04/21/20 24 04/23/2024 ALLER GENS, ZONE 1 A004-NmF mugwort <0.10 kU/L class 0 Not Available [facility] ([facility]) [address] [facility] [place], [address], 04/24/2024 00:13:21 04/21/20 24 04/23/2024 ALLER GENS, ZONE 1 Z088-TcV plantain, uzbek <0.10 kU/L class 0 Not Available [facility] ([facility]) [address] [facility], [place], [address], 04/24/2024 00:13:21 04/21/20 24 04/23/2024 ALLER GENS, ZONE 1 H547-TlS pigweed, common <0.10 kU/L class 0 Not Available [facility] ([facility]) [address] [facility], [place], [address], 04/24/2024 00:13:21 04/21/20 24 04/23/2024 ALLER GENS, ZONE 1 C230-WgE sheep sorrel <0.10 kU/L class 0 Not Available [facility] ([facility]) [address] [facility], [place], [address], 04/24/2024 00:13:21 04/21/20 24 04/23/2024 ALLER GENS, ZONE 1 I474-LfB nettle <0.10 kU/L class 0 Not Available [facility] ([facility]) [address] [facility], [place], [address], 04/24/2024 00:13:21 04/21/20 24 04/23/2024 IMMUN OGLOB ULIN E, TOTAL immunoglobul in E, total 67 IU/mL 6-495 Not Available [facility] ([facility]) [address] [facility] [place], [address], 04/24/2024 00:13:22 Result Notes None recorded. Problems Name Problem SNOMED Code Status Onset Date Resolution Date Notes Provider Name and Address Organization Details Recorded Time Posterior rhinorrhe a 74133112 Active 2022 Postnasal drip; Note: Date Diagnosed : 02/08/2023 2:36 PM (R09.82) Not Available [facility] 4 03:12:37 Chronic maxillary sinusitis 94620171 Active 2022 Chronic maxillary sinusitis ; Note: Date Diagnosed : 02/08/2023 5:04 PM (J32.0) Not Available [facility] 4 03:12:36 Deviated nasal septum 873019694 Active 2022 Deviated nasal septum; Note: Date Diagnosed : 04/29/2023 10:40 AM (J34.2) Not Available [facility] 4 03:12:36 Follow-up visit Active 2022 Encounter for follow-up examinati on after completed treatment for condition s other than malignant neoplasm; Note: Date Diagnosed : 3 2:23 PM (Z09) Not Available [facility] 4 03:12:36 Hypertrop hy of nasal turbinate s 28466144 Active 2022 Hypertrop hy of nasal turbinate s; Note: Date Diagnosed : 3 5:07 PM (J34.3) Not Available [facility] 4 03:12:36 Chronic rhinitis 27700098 Active 2022 Chronic rhinitis; Note: Date Diagnosed : 02/08/2023 2:36 PM (J31.0) Not Available [facility] 4 03:12:37 Sensorine ural hearing loss 46042138 Active 2023 Congenita l deafness NOS; Note: Date Diagnosed : 10/22/2023 9:18 AM (H90.5) Not Available [facility] 4 03:12:36 Pain of left temporoma ndibular joint 72948866996 994222 Active 2023 Arthralgi a of left temporoma ndibular joint; Note: Date Diagnosed : 10/22/2023 9:20 AM (M26.622) Not Available [facility] 4 03:12:37 Allergic rhinitis 16037893 Active 2023 DEYVI JONES MD [address], [place], [address] , [facility] - [facility] 4 09:36:47 Bilateral deafness 241517620 Active 2024 DEYVI JONES MD [address], [facility] [place], [address] , [facility] - [facility] 5 09:15:42 Problem Notes None recorded. Procedures Surgical History Date Name Laterality Status Provider Name and Address Organization Details Recorded Time 5 JMSNasal/Sinu s Endoscopy-[facility] OR surgical cavities completed DEYVI AMBROSE MD [address], [place], [address], [facility] - [facility] 10/23/2024 09:11:07 4 JMSNasal/Sinu s Endoscopy-[facility] OR surgical cavities completed DEYVI AMBROSE MD [address] [facility] [address], [place], [address], [facility] - [facility] 04/21/2024 09:36:07 Imaging Results None recorded. [...] as directed 04/14 completed Medicati on ID: [id number] D uration Value: 30 Brand Name: ipratrop [...] e 205.5 mcg (0.15 %) nasal spray Plato 2 spray into both nostrils twice a day 10/23 completed Medicati on ID: [id number] D uration Value: 30 Brand Name: azelasti [...] Details Last Updated DateTime 10/23/2024 177.8 cm 16099.55 g Maureen Cuellar [place] - [facility] 10/23/2024 08:46:45 Date Recorded Body height Body weight Provider Name and Address Organization Details Last Updated DateTime 04/21/2024 177.8 cm 47836.55 g Maureen Cuellar [place] - [facility] 04/21/2024 08:40:06 Social History None recorded. Functional Status None recorded. Mental Status None recorded. Family History Nothing Reported. Medical History Condition Response Depression Y Hearing Loss Y Past Encounters Encounter ID Performer Location Encounter Start Date Encounter Closed Date Diagnosis/Indication Diagnosis SNOMED-CT Code Diagnosis ICD10 Code Diagnosis Note [id number] DEYVI JONES MD [facility] [address] [address] 04/21/2024 08:36:20 04/21/2024 09:42:53 Chronic rhinitis 58089540 J31.0 Allergic rhinitis 790014 04 J30.9 Posterior rhinorrhea 758 20928 R09.82 [id number] DEYVI JONES MD [facility] [address] [address] 10/23/2024 08:43:38 10/23/2024 09:19:01 Chronic maxillary sinusitis 27009577 J32.0 Bilateral deafness 10772 4009 H91.93 Health Concerns Section Related Observation LastModified by Organization Detai ls LastModified Time None Recorded Concern Status LastModified by Organization Details LastModified Time None Recorded Advance Directives Directive None Recorded Payers Insurance Date Sequence Insurance Name Policy Number Policy Raza Covered Member ID Raza Member ID Guarantor Name 10/23/2024 1 [facility] - DOS ON OR AFTER 2022 - ONE CARE (MEDICARE REPLACEMENT/ADV ANTAGE - HMO) Abhijeet baumann [id number] Abhijeet meraz Notes Date Note Type Note Provider Name and Address Organization Details Recorded Time 04/21/2024 text/html History of septoplasty, turbinate reduction in maxillary antrostomy May 2023.Irrigating with saline/budesonide plaster helper present Doing well with BID irrigations. Occasional mucous and blood tinged secretions. DEYVI AMBROSE MD [address] [place] [address], [address], [place] - [facility] 04/21/2024 09:40:43 10/23/2024 text/html Hx of chronic sinus/polyps/fungus right side. Still some PND and throat irritationDoing irrigations with budesonide BID History of septoplasty, turbinate reduction in maxillary antrostomy May 2023 for fungal diseaseIrrigating with saline/budesonide plaster helper present Doing well with BID irrigations. Occasional mucous and blood tinged secretions. DEYVI AMBROSE MD [address] [place] [address], [place], [address], [place] [facility] 10/23/2024 09:19:07
[2025-02-07 03:43] LABS: Follicle Stimulating Hormone 4.8 mIU/mL (1.4-12.8)
[2025-02-11 14:28] LABS: Testosterone, Free 39.1 pg/mL (35.0-155.0)
[2025-02-12 08:57] LABS: Estradiol Ultra Sensitive 27 pg/mL (< OR = 29)
== END 2025-02-06 11:16 | disposition home or self-care (01) ==
LOC: HO.LAB 11:15
PROVIDERS: Visit Provider Nurse Practitioner Family
DX: E29.1 Testicular hypofunction (principal)
CPT/HCPCS: 36415; 82670; 83001; 83002; 84146; 84270; 84402; 84403

== ENCOUNTER 2025-03-29 14:16 | Outpatient (AMB) | payer OTHER, SELFPAY ==
[2025-03-29 14:22] VITALS: BP 120/88; PULSE 87; RESP 18; TEMP 36.2; O2SAT 97; BMI 30.4
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
== END 2025-03-29 15:27 | disposition home or self-care (01) ==
LOC: HO.HMCH 14:17
DX: H90.5 Unspecified sensorineural hearing loss (principal); K21.9 Gastro-esophageal reflux disease without esophagitis; L72.0 Epidermal cyst; D18.01 Hemangioma of skin and subcutaneous tissue

== ENCOUNTER → 2025-03-29 14:16 | Outpatient (BNVA) | payer OTHER, SELFPAY | PROVIDERS: PCP Internal Medicine | DX: K21.9 Gastro-esophageal reflux disease without esophagitis (principal); E29.1 Testicular hypofunction; L72.0 Epidermal cyst; H90.5 Unspecified sensorineural hearing loss; D18.01 Hemangioma of skin and subcutaneous tissue | CPT/HCPCS: 96127; 99212 ==

== ENCOUNTER 2025-03-30 10:31 | Outpatient (REF) | payer OTHER, SELFPAY ==
[2025-03-30 11:19] LABS: MANUAL DIFF FLAG NO
[2025-03-30 11:49] LABS: Appearance Urine Clear; Glucose Urine UA Negative (Negative); PH 8.5 (5.0-9.0); Specific Gravity - Urine 1.020 (1.005-1.025)
[2025-03-30 11:53] LABS: Hematocrit 44.1 % (42.0-52.0); Hemoglobin 15.5 g/dl (14.0-18.0); Imm Gran Abs Auto 0.03 X10*3/uL (0.00-0.03); Imm Gran Pct Auto 0.4 % (0.0-0.4); Lymphocytes Absolute Auto 1.9 X10*3/uL (1.2-4.9); Mean Corpuscular HGB Conc 35.1 g/dl (31.0-36.0); Mean Corpuscular Hemoglobin 31.2 pg (27.0-33.0); Mean Corpuscular Volume 88.7 fL (80.0-98.0); NRBC Abs Auto 0.000 X10*3/uL (0.0-0.012); NRBC Pct Auto 0.0 /100WBC (0.0-0.2); Platelet Count 246 X10*3/uL (160-400); Red Blood Count 4.97 X10*6/uL (4.60-5.80); White Blood Count 6.8 X10*3/uL (4.8-10.8)
[2025-03-30 12:41] LABS: Alanine Aminotransferase 28 U/L (0-40); Albumin Level 4.5 g/dL (3.5-5.0); Alkaline Phosphatase 68 U/L (39-117); Anion Gap 10 (12-20); Aspartate Amino Transferase 23 U/L (5-37); Blood Urea Nitrogen 8 mg/dL (9-16); Calcium 9.7 mg/dL (8.4-10.2); Carbon Dioxide 28 mmol/L (22-29); Chloride 107 mmol/L (96-108); Cholesterol 212 mg/dL (<200); Estimated Glomerular Filt Rate > 60; HDL Cholesterol 32 mg/dL (>40); Potassium 4.2 mmol/L (3.3-5.1); Sodium 141 mmol/L (135-145); Total Protein 6.9 g/dL (6.5-8.0); Triglycerides 150 mg/dL (<150)
== END 2025-03-30 10:32 | disposition home or self-care (01) ==
LOC: HO.LAB 10:31
DX: Z00.00 Encounter for general adult medical examination without abnormal findings (principal); Z13.6 Encounter for screening for cardiovascular disorders
CPT/HCPCS: 36415; 80053; 80061; 81003; 82306; 84443; 85025

== ENCOUNTER 2025-05-02 10:14 | Outpatient (AMB) | payer OTHER, SELFPAY ==
--- NOTE | 2025-05-02 10:15 | A.OFFVIS_ITS ---
Vital Signs 05/02/25 10:24 Height 5 ft 9 in Weight 208 lb BMI 30.7 BP 147/100 H Blood Pressure Location Rt brachial Position Sitting Pulse 88 Intake Visit Reasons: Epidermal cyst top of head Intake Note: This patient presents for an assessment for epidermal cyst of scalp. Pt c/o; Onset July 18, 2024, reports over the summer he picked on the scalp cyst and he noticed some bleeding and sensitivity to touch, intermittent pain, reports ? abscess left pinky finger ? infection, reports he feels weird and does not know if he has pus in the abscess he noticed on his finger. 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 He says that he has had this area of swelling and tenderness on his scalp since June,. He says that at some point this really swollen and painful. This has gone down significantly but he says that this occasionally still swells up. He says that this had drained in the past as well. He wants this removed. The patient is hearing impaired and had a floral designer salesperson with him. [facility] Medical History (Updated 05/02/25 @ 10:38 by Avery Leiva MD) Scalp cyst Depression Deaf Surgical History Hx of colonoscopy History of esophagogastroduodenoscopy (EGD) Umbilical hernia (12/18/22) Social History Housing: Apartment Patient Tobacco Use Status: Never used Tobacco Tobacco use type: Cigarette e-Cigarette/Vaping Use: Never Used Second Hand Smoke Exposure: No service: No Current occupational status: disabled Current occupational exposures/hazards: No Cognitive needs: Yes Hearing needs: No Vision needs: Yes Review of Systems Const Denies chills and Denies fever(s) ENT Details: Hearing and speech impaired,, 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 Card Denies chest pain, Denies dyspnea and Denies dyspnea on exertion Resp Denies cough, Denies dyspnea and Denies dyspnea on exertion GI Denies hematochezia and Denies change in bowel habits Denies hematuria and Denies difficulty urinating Musc Denies back pain and Denies limited range of motion Neuro Denies focal weakness and Denies convulsions Psych Denies depression and Denies mood swings Physical Exam Vital Signs: Last Vital Signs Pulse 88 05/02/25 10:24 BP 147/100 H 05/02/25 10:24 BMI result Body Mass Index 30.7 Const General: comfortable and no acute distress Orientation/consciousness: patient oriented x3 HEENT Other: Cystic induration on the mid parietal area, about 1.5 cm Neck Neck: Yes no lymphadenopathy Resp Auscultation: clear to auscultation bilaterally Cardio Rhythm: regular rhythm GI Palpation (GI): Soft to palpation, nontender and no guarding Neuro General: patient oriented x3 Assessment & Plan Assessment & Plan (1) Scalp cyst: Code(s): L72.9 - Follicular cyst of the skin and subcutaneous tissue, unspecified Category: Medical Plan: He has a scalp cysts as described above. He wants this removed. I explained the technique of excision under local anesthesia. I reviewed the risks including but not limited to bleeding and infections, as well as the benefits and alternatives. He understands and wants to proceed. This will be done in the office on his next visit under local anesthesia. Coding Level of Care Code New Pt Level 3 (18379) Diagnoses Scalp cyst L72.9
[2025-05-02 10:24] VITALS: BP 147/100; PULSE 88; BMI 30.7
== END 2025-05-02 10:41 | disposition home or self-care (01) ==
LOC: HO.HGS 10:15
PROVIDERS: Visit Provider Surgery
DX: L72.9 Follicular cyst of the skin and subcutaneous tissue, unspecified (principal)
CPT/HCPCS: 99203

== ENCOUNTER → 2025-05-02 10:14 | Outpatient (BNVA) | payer OTHER, SELFPAY | PROVIDERS: Visit Provider Surgery | DX: L72.0 Epidermal cyst (principal) | CPT/HCPCS: 99202 ==

== ENCOUNTER 2025-05-14 10:15 | Outpatient (AMB) | payer OTHER, SELFPAY ==
--- NOTE | 2025-05-14 10:17 | MHC.OFFVIS ---
Intake Visit Reasons: 3m/Testo/Labs Intake Note: patient presents today for: 3m/testo/labs urology medications: terazosin blood thinners: none labs done LH 2.7, EUS 27, SHBN 40, FT 39.1, FSH 4.8, PRO 4.9, TT 337 today's PVR: Smart Grid Engineer Required: Yes Smart Grid Engineer Services: Smart Grid Engineer Present Smart Grid Engineer Name: Gallo dinkey press operator Accompanied by: Self / Same As Patient Allergies No Known Allergies Allergy (Verified 05/14/25 13:53) Medication List - Last Reconciled 05/14/25 by LUCIAN Marquez- budesonide mg inhalation pantoprazole 40 mg PO BID terazosin 2 mg PO BEDTIME 90 days HPI Comments Details: Abhijeet is a pleasant 49-year-old male patient of Dr. Ayers. He has a past medical history of depression and is deaf. aerial photographer Familia mari to provide translation. He presents to the office today for follow-up. In discussion with the patient today he reports to be doing and feeling well. He discusses continuing to follow-up with GI. He reports compliance with terazosin as prescribed and does feel this has been helpful in episodes of nocturia he had been experiencing. However he does continue to experience intermittent vague bladder discomfort and generalized musculoskeletal discomfort throughout his back in body. Recent hypogonadism labs were reviewed with the patient today as noted and trended below: PSA: 11/17 0.9 Testosterone: 11/17 293, 02/16 337 Free testosterone: 11/17 66.6, 02/16 39.1 SHB/25 40 Prolactin: 02/16 4.9 LH: 02/16 2.7 FSH: 02/16 4.8 Estradiol: 02/16 27 Urine Cytology 11/17 :Negative for high-grade urothelial carcinoma. In office urinalysis results reviewed with the patient today. PVR 50 mL. Previous workup has included a retroperitoneal ultrasound 02/14 noting bilateral kidneys with no calculi, lesions, and or hydronephrosis noted. The bladder is well distended and normal. Pre void bladder volume is approximately 450 mL. Postvoid bladder volume is approximately 10 mL. The prostate gland is slightly enlarged and measures approximately 43 mL. Microgen 06/17 negative. When asked he denies incontinence, hematuria, fever, and or chills. We did discuss borderline low testosterone as well as LH. We discussed trial of stimulation testing with Clomid verses trial of low-dose Cialis versus surveillance monitoring. We also discussed lifestyle modifications to assist with borderline low testosterone. All questions were answered. He otherwise offers no other issues or concerns at this time. [facility] Medical History Scalp cyst Depression Deaf Surgical History Hx of colonoscopy History of esophagogastroduodenoscopy (EGD) Umbilical hernia (12/18/22) Social History Housing: Apartment Patient Tobacco Use Status: Never used Tobacco Tobacco use type: Cigarette e-Cigarette/Vaping Use: Never Used Second Hand Smoke Exposure: No service: No Current occupational status: disabled Current occupational exposures/hazards: No Cognitive needs: Yes Hearing needs: No Vision needs: Yes Review of Systems Const Reports no additional complaints Eyes Reports no additional complaints ENT Reports no additional complaints Card Reports no additional complaints Resp Reports no additional complaints GI Reports as per HPI Reports as per HPI Musc Reports no additional complaints Neuro Reports no additional complaints Psych Reports as per HPI Endo Reports no additional complaints Duke/Lymph Reports no additional complaints Aller/Immun Reports no additional complaints Physical Exam Const General: cooperative, healthy appearing, comfortable, no acute distress, well developed, alert and awake Orientation/consciousness: patient oriented x3 Limitations: other limitations (ALS dinkey press operator ) HEENT Head: Yes normal to inspection, Yes normocephalic and Yes atraumatic Ears: other (Deaf; aerial photographer present to assist with translation) Eyes General: appearance normal, both eyes and all related structures Neck Neck: Yes normal visual inspection and Yes trachea midline Chest Chest palpation & inspection: normal inspection of the chest Resp Effort & Inspection: normal respiratory effort and able to speak in complete sentences Cardio Rate: regular rate GI Inspection: Yes normal to inspection General: Yes no CVA tenderness Back/Spine/Pelvis Back: no CVA tenderness Skin General skin exam: no rashes or lesions noted Neuro General: patient oriented x3 Extrem General: Yes normal to inspection Psych Appearance: grossly normal and well kempt Mental Status: mental status grossly normal Speech and movement: Normal speech and movement present and Clear speech present Affect: normal affect Attitude: cooperative Thought process: Normal thought process present Thought content: Normal thought content present Insight: Fair insight present (Psych) Judgement: Fair judgement present (Psych) Office Procedures Post Void Residual Post Residual Void Post Void Residual (PVR): 50 [id number] Void Residual by ultrasound Results AMB Urinalysis, Automated UA Leukoctes 0 Brisa/uL Last Edit by ANDER Card on 05/14/25 16:30 UA Nitrite Last Edit by ANDER Card on 05/14/25 16:30 UA Urobilinogen 0.2 mg/dL Last Edit by ANDER Card on 05/14/25 16:30 UA Protein 15 mg/dL Last Edit by ANDER Card on 05/14/25 16:30 UA pH 7.5 Last Edit by ANDER Card on 05/14/25 16:30 UA Blood 0 Chris/uL Last Edit by ANDER Card on 05/14/25 16:30 UA Specific [place] 1.010 Last Edit by ANDER Card on 05/14/25 16:30 UA Ketone Last Edit by ANDER Card on 05/14/25 16:30 UA Bilirubin 0 mg/dL Last Edit by ANDER Card on 05/14/25 16:30 UA Glucose 0 mg/dL Last Edit by ANDER Card on 05/14/25 16:30 Results Reviewed Results Reviewed: Laboratory Last Values Urine pH (Auto) 7.5 05/14/25 16:30 Specific [place] (Auto) 1.010 05/14/25 16:30 Urine Protein (Auto) 15 mg/dL 05/14/25 16:30 Glucose (UA)(Auto) 0 mg/dL 05/14/25 16:30 Urine Blood (Auto) 0 Chris/uL 05/14/25 16:30 Urine Bilirubin (Auto) 0 mg/dL 05/14/25 16:30 Urine Urobilinogen (Auto) 0.2 mg/dL 05/14/25 16:30 Leukocyte Esterase (Auto) 0 Brisa/uL 05/14/25 16:30 Assessment & Plan Assessment & Plan (1) Hypogonadism in male: Code(s): E29.1 - Testicular hypofunction Category: Medical (2) Feeling of incomplete bladder emptying: Code(s): R39.14 - Feeling of incomplete bladder emptying Category: Medical (3) Weak urinary stream: Code(s): R39.12 - Poor urinary stream Category: Medical (4) Incomplete bladder emptying: Code(s): R33.9 - Retention of urine, unspecified Category: Medical Plan In office urinalysis results with the patient today; as noted above. Recent labs were reviewed with the patient today; as noted above We discussed hx of borderline hypogonadism; we discussed further treatment options and risks and benefits of these treatment options. All questions were answered. We did discussed importance of taking medications as prescribed. All questions were answered. Will obtain testosterone and LH in 6 months. We did discussed lifestyle modifications to assist with borderline low testosterone. Follow-up in 6 months with labs to be completed prior; or sooner with any issues, concerns, and or questions. Orders: Orders Testosterone, Total 6 Months E29.1 - Testicular hypofunction Lutenizing Hormone 6 Months E29.1 - Testicular hypofunction AMB Post Void Residual by ultrasound Today R30.0 - Dysuria AMB Urinalysis Automated Today Z13.9 - Encounter for screening, unspecified Patient Instructions: The patient had an opportunity to ask questions regarding the treatment plan. All questions were answered. Physical exam, labs, and imaging were discussed and reviewed in detail. As well as risks, benefits, and discussion of treatment choices. No major barriers to understanding were identified. The patient expressed understanding and agreement with the above treatment plan. The patient was made aware they should contact our office by phone for worsening of their current condition, the appearance of new symptoms, or with any questions or concerns. Compliance is encouraged with any medications and follow up testing that is ordered. It is a privilege to be allowed the opportunity to participate in? your urological care.? Again, if you have any questions or concerns If you have any questions or concerns please do not hesitate to contact me. The office is [phone]. This note is constructed using voice recognition software. While every effort has been made to ensure accuracy rat exterminator errors may have been included. Yours sincerely, KRYSTLE Marquez Coding Level of Care Code Est Pt Level 4 (84861) Diagnoses Hypogonadism in male E29.1 Feeling of incomplete bladder emptying R39.14 Weak urinary stream R39.12 Incomplete bladder emptying R33.9 CPT Codes Post Residual Void - PVR CPT Code: 45619-Ddls Void Residual by ultrasound ([id number])
== END 2025-05-14 11:22 | disposition home or self-care (01) ==
LOC: HO.HUSH 10:16
PROVIDERS: PCP Internal Medicine; Visit Provider Nurse Practitioner Family
DX: E29.1 Testicular hypofunction (principal); R39.14 Feeling of incomplete bladder emptying; R39.12 Poor urinary stream; R33.9 Retention of urine, unspecified; Z13.9 Encounter for screening, unspecified
CPT/HCPCS: 99214

== ENCOUNTER → 2025-05-14 10:15 | Outpatient (BNVA) | payer OTHER, SELFPAY | PROVIDERS: PCP Internal Medicine; Visit Provider Nurse Practitioner Family | DX: E29.1 Testicular hypofunction (principal); R39.14 Feeling of incomplete bladder emptying; R39.12 Poor urinary stream; R33.9 Retention of urine, unspecified; Z13.9 Encounter for screening, unspecified | CPT/HCPCS: 51798; 81003; 99212 ==

== ENCOUNTER 2025-05-28 08:19 | Outpatient (AMB) | payer OTHER, SELFPAY ==
--- NOTE | 2025-05-28 08:43 | A.OFFVIS_ITS ---
Vital Signs 05/28/25 08:47 Height 5 ft 9 in Weight 207 lb 8 oz BMI 30.6 BP 135/88 Blood Pressure Location Lt brachial Position Sitting Respiration 16 Pulse 94 Pulse Source Pulse Oximeter Pulse Oximetry (%) 97 Oxygen Delivery Method Room Air Intake Visit Reasons: 6 mo f/u Intake Note: Frequent soft BMs. Yesterday took medicine that makes me go to the bathroom and have very dry mouth and some chest pain from this Fixed Interest Dealer Required: Yes Fixed Interest Dealer Language: Sign Languages (macro) Fixed Interest Dealer Services: Fixed Interest Dealer Present Fixed Interest Dealer Name: You [id number] Information Interpreted: non-clinical & clinical Accompanied by: Self / Same As Patient Allergies No Known Allergies Allergy (Verified 05/14/25 13:53) Medication List - Last Reconciled 05/28/25 by Janell Wetzel RN budesonide mg inhalation pantoprazole 40 mg PO BID terazosin 2 mg PO BEDTIME 90 days Do you need a note to return to daycare/school/sports/work: No HPI HPI 6 mo f/u: Details: 49 yr old m here for f/u 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: He had EGD and colo for abdo pain 2019 mild esophagitis mild gastric erythema normal colonoscopy apart from hemorrhoids path- chronic erosive esophagitis rept EGD 06/2023 balloon dilation path: moderate chronic inflammation at GEJ and active esophagitis in distal esophagus other data: US 11/2021-- normal Labs: 2022-nml HGB, mild raised bili and ALT Prior visits : CTe: no evidence of IBD, umbilical henria and diastasis of recti musc noted referred to urology due to urine issues referred to surgery for umbilical hernia repair, which he had done EGD/colo 2024: Endoscopy Findings: lax LES mil esophagitis mild duodenitis Colonoscopy Findings: colon polyp internal hemorrhoids path: active esophagitis and reflux changes tubular adenoma INTERIM: stools are more soft and thin -no blood he is eating smaller portions he has bloating he has occasional discomfort in the chest area, rare usu when eating --few mins then goes away he is vague on fiber intake no nausea or vomiting he can have fatigue, moving sensation in his arms and head EXAM: GENERAL: The patient is well developed and nontoxic. VITAL SIGNS:see workflow HEENT: Nonicteric sclerae, PERRLA, EOMI. Oropharynx clear. Moist mucous membranes. Conjunctivae appear well perfused. No thyroid mass. CHEST: Chest wall is nontender. HEART: Regular rate and rhythm without murmurs. LUNGS: Clear to auscultation bilaterally. ABDOMEN: Soft, positive bowel sounds, nontender, no organomegaly.no flank tenderness--moderate umbilical hernia, tender to touch SKIN: nml NEUROLOGIC: Cranial nerves II-XII intact without motor/sensory deficit. psych- nml affect A/P; 1/ GERD, taking PPI, currently controlled with meds 2/ bloating and change in bowel habits PLAN: 1/ trial of rifaximin and re engage with high fiber diet PFSH Medical History Scalp cyst Depression Deaf Surgical History Hx of colonoscopy History of esophagogastroduodenoscopy (EGD) Umbilical hernia (12/18/22) Social History Housing: Apartment Patient Tobacco Use Status: Never used Tobacco Tobacco use type: Cigarette e-Cigarette/Vaping Use: Never Used Second Hand Smoke Exposure: No service: No Current occupational status: disabled Current occupational exposures/hazards: No Cognitive needs: Yes Hearing needs: No Vision needs: Yes Physical Exam Vital Signs: Last Vital Signs Pulse 94 05/28/25 08:47 Resp 16 05/28/25 08:47 BP 135/88 05/28/25 08:47 Pulse Ox 97 05/28/25 08:47 Oxygen Delivery Method Room Air 05/28/25 08:47 BMI result Body Mass Index 30.6 Assessment & Plan Assessment & Plan (1) GERD (gastroesophageal reflux disease): Code(s): K21.9 - Gastro-esophageal reflux disease without esophagitis Category: Medical Qualifiers: Esophagitis presence: esophagitis presence not specified Qualified Co de(s): K21.9 - Gastro-esophageal reflux disease without esophagitis Plan: as above Medications: New rifaximin 550 mg PO TID 42 tabs 0RF 2 weeks Coding Level of Care Code Est Pt Level 3 (00712) Diagnoses Gastroesophageal reflux disease, unspecified whether esophagitis present K21.9 Esophagitis presence: esophagitis presence not specified
[2025-05-28 08:47] VITALS: BP 135/88; PULSE 94; RESP 16; O2SAT 97; BMI 30.6
== END 2025-05-28 09:41 | disposition home or self-care (01) ==
LOC: HO.HGI 08:20
PROVIDERS: PCP Internal Medicine; Visit Provider Internal Medicine Gastroenterology
DX: K21.9 Gastro-esophageal reflux disease without esophagitis (principal)
CPT/HCPCS: 99213

== ENCOUNTER → 2025-05-28 08:19 | Outpatient (BNVA) | payer OTHER, SELFPAY | PROVIDERS: PCP Internal Medicine; Visit Provider Internal Medicine Gastroenterology | DX: K21.9 Gastro-esophageal reflux disease without esophagitis (principal) | CPT/HCPCS: 99212 ==

== ENCOUNTER 2025-05-30 12:39 | Outpatient (AMB) | payer OTHER, SELFPAY ==
--- NOTE | 2025-05-30 13:37 | AM.OFFVISNUR ---
Intake Visit Reasons: Flu shot Allergies No Known Allergies Allergy (Verified 05/14/25 13:53) Office Procedures Flu Questionnaire Does the patient have a severe egg allergy?: No Does the patient have severe life threatening allergies?: No Does the patient have a fever or illness today?: No Has the patient ever had Guillain-Barrington Syndrome?: No Has the patient ever had any past reaction to a flu shot?: No Immunizations Fluarix [id number] (PF) 45 mcg (15 mcg x 3)/0.5 mL IM syringe Performing Provider: DEE DEE Jernigan Performing Location: [facility] [place] [facility] Administered by: Sheryl Moran LPN on 05/30/25 13:37 Dose Route Admin Location Dispensed Lot Number Expiration Date [facility] [employer]lem[employer] Operator 0.5 mL IM Right Deltoid 0.5 mL [id number] 01/22/26 [id number] FNZ VIS Given Date VIS Provided VIS Publication Date 05/30/25 Single Vaccine 24 Eligibility Eligibility Date Funding Source Not [facility] Eligible 05/30/25 Private Assessment & Plan Assessment & Plan Orders: Orders Influenza [id number] Immunization Today Z23 - Encounter for immunization Coding
--- OUTSIDE RECORDS SUMMARY | 2025-05-30 15:15 | XMS_ITS | Data Portability ---
Author Organization [place] - [facility], Allergy Address [address] [address] Care Team Providers Care Hand Marker Name Role Phone RAPHAEL BARAHONA Primary Care Provider Assessment Encounter Date Assessment Date Assessment LastModified by Organization Details LastModified Time 04/21/2024 04/21/2024 No recurrence of polyps or sinusitis. Still some sensation of nasal drainage and PND. Suggest continue budesonide irrigations. Continue budesonide. Recheck allergy labs [email or web address] Not available 04/21/2024 09:38:59 04/24/2025 04/24/2025 Abhijeet Purcell is a 49-year-old male with chronic right fungal sinusitis, status post-surgical intervention, presenting with occasional headache, throat irritation, and postnasal drip. The patient's symptoms are likely related to environmental factors [place] Allergy testing performed previously was negative. The throat irritation may also be exacerbated by acid reflux, for which the patient is already taking medication. I recommend the patient resume saline nasal irrigation to help alleviate mucus buildup and postnasal drip. Additionally, I will prescribe a nasal spray to be used up to three times daily as needed to reduce mucus production. While I cannot guarantee complete resolution of symptoms, this may provide symptomatic relief. FOLLOW-UP: The patient will follow up in one year unless symptoms worsen or new concerns arise. He was advised to use the patient portal for communication and was provided instructions on how to set up access. [email or web address] Not available 04/24/2025 09:17:52 Plan of Treatment Reminders Order Date Submit Date Provider Last Modified By Organization Details Last Modified Time Details Appointments Establ ished 30 2025 10:30A M DEYVI ESPOSITO MD Not available Not available Not available Lab unlist ed lab - allerg ens, zone 1 2023 024 Y[place]ILET [facility] (Centralized Electronic Ordering - All Locations), Patient Can Go To The Location Of Their Choice, [id number] 04/24/2024 00:13:21 nettle IgE Ab, serum 2023 024 [facility] (Centralized Electronic Ordering - All Locations), Patient Can Go To The Location Of Their Choice, [id number] 05/05/2024 12:38:04 bahia grass IgE Ab, quanti tative , serum 2023 024 [facility] (Centralized Electronic Ordering - All Locations), Patient Can Go To The Location Of Their Choice, [id number] 05/05/2024 12:38:04 bermud a grass ige, serum 2023 024 [facility] (Centralized Electronic Ordering - All Locations), Patient Can Go To The Location Of Their Choice, [id number] 05/05/2024 12:38:05 englis h planta in ige, serum 2023 024 [facility] (Centralized Electronic Ordering - All Locations), Patient Can Go To The Location Of Their Choice, [id number] 05/05/2024 12:38:05 ige, total, serum 2023 024 [place] [facility] (Centralized Electronic Ordering - All Locations), Patient Can Go To The Location Of Their Choice, [id number] 04/24/2024 00:13:22 Referral None record ed. Procedures None record ed. Surgeries None record ed. Imaging None record ed. Medication Orders ipratr opium bromid e 21 mcg (0.03 %) nasal spray 2024 025 wilfrido [facility] #[id number], [address] [facility], [place], [address], 05/17/2025 10:19:20 Patient TargetsNo targets recorded. Patient Instructions Encounter Date Encounter Id Patient Instructions Last Modified By Organization Details Last Modified Time 10/23/2024 [id number] Overall doing well. No recurrent sinus congestion or fungal disease. Likely some ear irritation due to the irrigations. Reduce irrigations to once daily and go slower to reduce ear irritation options advisor Alla [id number] david Not available 10/23/2024 09:18:49 04/24/2025 [id number] - Resume saline nasal irrigation to alleviate mucus buildup and postnasal drip. - Use prescribed nasal spray up to three times daily as needed. - Set up access to the patient portal for communication and follow-up. [email or web address] Not available 04/24/2025 09:17:52 Please note: Parts of this encounter note have been generated by AI based on audio conversation. Patient consent was required prior to utilizing this technology. Content review was required prior to finalizing the note. david Not available 04/24/2025 09:17:53 Reason for Referral None Reported. Results Created [...] >100. 00 Very High Not Available [facility] ([facility]) [address] [facility], [place], [address], 04/24/2024 00:13:21 04/21/20 24 04/23/2024 ALLER GENS, ZONE 1 C327-SzN D pteronyssinu s <0.10 kU/L class 0 Not Available [facility] ([facility]) [address] [facility], [place], [address], 04/24/2024 00:13:21 04/21/20 24 04/23/2024 ALLER GENS, ZONE 1 G309-KjF D farinae <0.10 kU/L class 0 Not Available [facility] ([facility]) [address] [facility], [place], [address], 04/24/2024 00:13:21 04/21/20 24 04/23/2024 ALLER GENS, ZONE 1 N287-RmD CAT dander <0.10 kU/L class 0 Not Available [facility] ([facility]) [address] [facility], [place], [address], 04/24/2024 00:13:21 04/21/20 24 04/23/2024 ALLER GENS, ZONE 1 T104-GjN dog dander <0.10 kU/L class 0 Not Available [facility] ([facility]) [address] [facility], [place], [address], 04/24/2024 00:13:21 04/21/20 24 04/23/2024 ALLER GENS, ZONE 1 t277-BnC bermuda grass <0.10 kU/L class 0 Not Available [facility] ([facility]) [address] [facility], [place], [address], 04/24/2024 00:13:21 04/21/20 24 04/23/2024 ALLER GENS, ZONE 1 u280-FxR bluegrass, k[place] <0.10 kU/L class 0 Not Available [facility] ([facility]) [address] [facility], [place], [address], 04/24/2024 00:13:21 04/21/20 24 04/23/2024 ALLER GENS, ZONE 1 t695-BdD bahia grass <0.10 kU/L class 0 Not Available [facility] ([facility]) [address] [place], [address], 04/24/2024 00:13:21 04/21/20 24 04/23/2024 ALLER GENS, ZONE 1 L257-IaU cockroach, honduran <0.10 kU/L class 0 Not Available [facility] ([facility]) [address] [facility] [place], [address], 04/24/2024 00:13:21 04/21/20 24 04/23/2024 ALLER GENS, ZONE 1 K244-JtZ penicillium chrysogen <0.10 kU/L class 0 Not Available [facility] ([facility]) [address] [place], [address], 04/24/2024 00:13:21 04/21/20 24 04/23/2024 ALLER GENS, ZONE 1 O904-AmZ cladosporium herbarum <0.10 kU/L class 0 Not Available [facility] ([facility]) [address] [place], [address], 04/24/2024 00:13:21 04/21/20 24 04/23/2024 ALLER GENS, ZONE 1 G404-XlF aspergillus fumigatus <0.10 kU/L class 0 Not Available [facility] ([facility]) [address] [place], [address], 04/24/2024 00:13:21 04/21/20 24 04/23/2024 ALLER GENS, ZONE 1 H146-SnT mucor racemosus <0.10 kU/L class 0 Not Available [facility] ([facility]) [address] [place], [address], 04/24/2024 00:13:21 04/21/20 24 04/23/2024 ALLER GENS, ZONE 1 R900-AgK alternaria alternata <0.10 kU/L class 0 Not Available [facility] ([facility]) [address] [place], [address], 04/24/2024 00:13:21 04/21/20 24 04/23/2024 ALLER GENS, ZONE 1 G236-ZyB stemphylium herbarum <0.10 kU/L class 0 Not Available [facility] ([place] [facility]) [address], [place], [address], 04/24/2024 00:13:21 04/21/20 24 04/23/2024 ALLER GENS, ZONE 1 S478-ZoK common silver birch <0.10 kU/L class 0 Not Available [facility] ([facility] [facility]) [address], [place], [address], 04/24/2024 00:13:21 04/21/20 24 04/23/2024 ALLER GENS, ZONE 1 H488-DvJ oak, white <0.10 kU/L class 0 Not Available [facility] ([facility] [facility]) [address], [place], [address], 04/24/2024 00:13:21 04/21/20 24 04/23/2024 ALLER GENS, ZONE 1 F459-JeZ elm, honduran <0.10 kU/L class 0 Not Available [facility] ([facility] [facility]) [address], [place], [address], 04/24/2024 00:13:21 04/21/20 24 04/23/2024 ALLER GENS, ZONE 1 J467-DyY maddie, white <0.10 kU/L class 0 Not Available [facility] ([facility] [facility]) [address], [place], [address], 04/24/2024 00:13:21 04/21/20 24 04/23/2024 ALLER GENS, ZONE 1 Z592-KgD maple/box elder <0.10 kU/L class 0 Not Available [facility] ([facility] [facility]) [address], [place], [address], 04/24/2024 00:13:21 04/21/20 24 04/23/2024 ALLER GENS, ZONE 1 E513-AiW hazelnut tree <0.10 kU/L class 0 Not Available [facility] ([place] [facility]) [address], [place], [address], 04/24/2024 00:13:21 04/21/20 24 04/23/2024 ALLER GENS, ZONE 1 W001-FkT hickory, white <0.10 kU/L class 0 Not Available [facility] ([place] [facility]) [address], [place], [address], 04/24/2024 00:13:21 04/21/20 24 04/23/2024 ALLER GENS, ZONE 1 I876-DpC white mulberry <0.10 kU/L class 0 Not Available [facility] ([facility] [facility]) [address], [place], [address], 04/24/2024 00:13:21 04/21/20 24 04/23/2024 ALLER GENS, ZONE 1 L313-ZkQ cedar, mountain <0.10 kU/L class 0 Not Available [facility] ([facility] [facility]) [address], [place], [address], 04/24/2024 00:13:21 04/21/20 24 04/23/2024 ALLER GENS, ZONE 1 W018-RiF ragweed, short <0.10 kU/L class 0 Not Available [facility] ([place] [facility]) [address], [place], [address], 04/24/2024 00:13:21 04/21/20 24 04/23/2024 ALLER GENS, ZONE 1 S235-SmW mugwort <0.10 kU/L class 0 Not Available [facility] ([facility] [facility]) [address], [place], [address], 04/24/2024 00:13:21 04/21/20 24 04/23/2024 ALLER GENS, ZONE 1 U877-VeC plantain, hungarian <0.10 kU/L class 0 Not Available [facility] ([facility]) [address] [facility], [place], [address], 04/24/2024 00:13:21 04/21/20 24 04/23/2024 ALLER GENS, ZONE 1 J158-VzK pigweed, common <0.10 kU/L class 0 Not Available [facility] ([facility]) [address] [facility] [address], [place], [address], 04/24/2024 00:13:21 04/21/20 24 04/23/2024 ALLER GENS, ZONE 1 W424-SqJ sheep sorrel <0.10 kU/L class 0 Not Available [facility] ([facility]) [address] [facility], [place], [address], 04/24/2024 00:13:21 04/21/20 24 04/23/2024 ALLER GENS, ZONE 1 B926-TzO nettle <0.10 kU/L class 0 Not Available [facility] ([facility]) [address] [facility], [place], [address], 04/24/2024 00:13:21 04/21/20 24 04/23/2024 IMMUN OGLOB ULIN E, TOTAL immunoglobul in E, total 67 IU/mL 6-495 Not Available [facility] ([facility]) [address] [facility] [address], [place], [address], 04/24/2024 00:13:22 Result Notes None recorded. Problems Name Problem SNOMED Code Status Onset Date Resolution Date Notes Provider Name and Address Organization Details Recorded Time Posterior rhinorrhe a 05582273 Active 2022 Postnasal drip; Note: Date Diagnosed : 02/08/2023 2:36 PM (R09.82) DEYVI JONES MD [address] [place] [address], [place], [address] , [facility] - [facility] 09/30/202 5 09:13:50 Chronic maxillary sinusitis 16515746 Active 2022 Chronic maxillary sinusitis ; Note: Date Diagnosed : 02/08/2023 5:04 PM (J32.0) Not Available [facility] 4 03:12:36 Chronic rhinitis 21888829 Active 2022 Chronic rhinitis; Note: Date Diagnosed : 02/08/2023 2:36 PM (J31.0) Not Available [facility] 4 03:12:37 Deviated nasal septum 153133807 Active 2022 Deviated nasal septum; Note: Date Diagnosed : 04/29/2023 10:40 AM (J34.2) Not Available [facility] 4 03:12:36 Hypertrop hy of nasal turbinate s 85417194 Active 2022 Hypertrop hy of nasal turbinate s; Note: Date Diagnosed : 3 5:07 PM (J34.3) Not Available [facility] 4 03:12:36 Follow-up visit Active 2022 Encounter for follow-up examinati on after completed treatment for condition s other than malignant neoplasm; Note: Date Diagnosed : 3 2:23 PM (Z09) Not Available [facility] 4 03:12:36 Sensorine ural hearing loss 45069951 Active 2023 Congenita l deafness NOS; Note: Date Diagnosed : 10/22/2023 9:18 AM (H90.5) Not Available [facility] 4 03:12:36 Pain of left temporoma ndibular joint 97084819128 774779 Active 2023 Arthralgi a of left temporoma ndibular joint; Note: Date Diagnosed : 10/22/2023 9:20 AM (M26.622) Not Available [facility] 4 03:12:37 Allergic rhinitis 12940715 Active 2023 DEYVI JONES MD [address] [place] [address], [facility] [place], [address] , [place] - [facility] 4 09:36:47 Bilateral deafness 088510596 Active 2024 DEYVI JONES MD [address], [place], [address] , [facility] - [facility] 5 09:13:46 Gastroeso phageal reflux disease 392658323 Active 2024 DEYVI JONES MD [address] [place], [place], [address] , [facility] - [facility] 5 09:14:08 Problem Notes None recorded. Procedures Surgical History Date Name Laterality Status Provider Name and Address Organization Details Recorded Time 5 JMSNasal/Sinus Endoscopy-PRIOR surgical cavities completed DEYVI AMBROSE MD [address] [facility] [place],[address] [facility], [place], [address], [facility] - [facility] 04/24/2025 09:13:42 5 JMSNasal/Sinus Endoscopy-PRIOR surgical cavities completed DEYVI AMBROSE MD [address] [facility] [place],[address] [facility], [place], [address], [facility] - [facility] 10/23/2024 09:11:07 4 JMSNasal/Sinus Endoscopy-PRIOR surgical cavities completed DEYVI AMBROSE MD [address] [facility] [place],[address] [facility], [place], [address], [facility] - [facility] 04/21/2024 09:36:07 maxillary sinusotomy completed DEYVI AMBROSE MD [address] [facility] [place],[address] [facility], [place], [address], [facility] - [facility] 04/24/2025 09:08:10 Imaging Results None recorded. Procedure Notes None [...] mg capsule TAKE 1 CAPSULE BY MOUTH EVERYDAY AT BEDTIME active Not Available Not Available No t [...] ONE VIAL IN NEILMED RINSE TWICE DAILY. USE 1/2 BOTTLE PER NOSTRIL active Not Available Not Available No t Available clotrimaz ole 1 % topical cream USE 1 APPL TOPICALL Y 2 TIMES A DAY FOR 4 WEEKS 04/21 completed Not Available Not Available Not Available ipratropi um bromide 21 mcg (0.03 %) nasal spray INHALE 2 SPRAYS NASALLY THREE TIMES A DAY DIRECTED 2024 active Not Available Not Available Not Avai lable amoxicill in 875 mg-potass ium clavulana te 125 mg tablet TAKE 1 TABLET BY MOUTH TWICE A DAY 04/21 completed Not Available Not Available Not Available amoxicill in 500 mg-potass ium clavulana te 125 mg tablet TAKE 1 TABLET BY MOUTH EVERY 12 HOURS FOR 7 DAYS 10/23 completed Not Available Not Available Not Available azelastin e 205.5 mcg (0.15 %) nasal spray [place] 2 spray into both nostrils twice a day 10/23 completed Medicati on ID: [id number] D uration Value: 30 Brand Name: azelasti cecil Send Method: E-Prescr ibed Sub s Allowed: subs OK Medic ationGen ericName : azelasti cecil Not Available Not Available Not Available sodium,po tassium,m ag sulfates 17.5 gram-3.13 gram-1.6 gram oral soln DILUTE THEN DRINK 1/2 BY MOUTH AT 6-8 PM AND HALF AT 11 PM- 1AM active Not Available Not Available No t Available Vitals Date Recorded Body height Body weight Provider Name and Address Organization Details Last Updated DateTime 10/23/2024 177.8 cm 94238.55 g Maureen Cuellar [place] - [facility] 10/23/2024 08:46:45 Date Recorded Body height Body weight Provider Name and Address Organization Details Last Updated DateTime 04/21/2024 177.8 cm 18166.55 g Maureen Cuellar [place] - [facility] 04/21/2024 08:40:06 Date Recorded Body height Provider Name an d Address Organization Details Last Updated DateTime 04/24/2025 177.8 cm MALIK BENJAMIN [place] - [facility] 04/24/2025 08:56:24 Social History None recorded. Functional Status None recorded. Mental Status None recorded. Family History Nothing Reported. Medical History Condition Response Hearing Loss Y Depression Y Past Encounters Encounter ID Performer Location Encounter Start Date Encounter Closed Date Diagnosis/Indication Diagnosis SNOMED-CT Code Diagnosis ICD10 Code Diagnosis IMO Codes Diagnosis Note [id number] DEYVI JONES MD [facility] [address] [address] 04/21/2024 08:36:20 04/21/2024 09:42:53 Chronic rhinitis 80977968 J31.0 Allergic rhinitis 420654 04 J30.9 Posterior rhinorrhea 758 30653 R09.82 [id number] DEYVI JONES MD [facility] [address] [address] 10/23/2024 08:43:38 10/23/2024 09:19:01 Chronic maxillary sinusitis 20253098 J32.0 Bilateral deafness 96020 4009 H91.93 [id number] DEYVI JONES MD [facility] [address] [address] 04/24/2025 08:22:44 04/24/2025 09:19:29 Bilateral deafness 612462285 H91.93 Posterior rhinorrhea 758 68572 R09.82 Gastroesop hageal reflux disease 556011955 K21.9 62447600 Health Concerns Section Related Observation LastModified by Organization Detai ls LastModified Time None Recorded Concern Status LastModified by Organization Details LastModified Time None Recorded Advance Directives Directive None Recorded Payers Insurance Date Sequence Insurance Name Policy Number Policy Raza Covered Member ID Raza Member ID Guarantor Name 04/24/2025 1 [facility] - DOS ON OR AFTER 2022 - ONE CARE (MEDICARE REPLACEMENT/ADV ANTAGE - HMO) Abhijeet Radha Catina baumann [id number] Abhijeet Radha Abel meraz Notes Date Note Type Note Provider Name and Address Organization Details Recorded Time 04/21/2024 text/html History of septoplasty, turbinate reduction in maxillary antrostomy May 2023.Irrigating with saline/budesonide options advisor present Doing well with BID irrigations. Occasional mucous and blood tinged secretions. DEYVI AMBROSE MD [address] [facility],[address], [address], [place] - [facility] 04/21/2024 09:40:43 10/23/2024 text/html ROS as noted in the HPI Hx of chronic sinus/polyps/fungus right side. Still some PND and throat irritationDoing irrigations with budesonide BID History of septoplasty, turbinate reduction in maxillary antrostomy May 2023 for fungal diseaseIrrigating with saline/budesonide options advisor present Doing well with BID irrigations. Occasional mucous and blood tinged secretions. DEYVI AMBROSE MD [address] [facility],[address], [address], [place] - [facility] 10/23/2024 09:19:07 04/24/2025 text/html Abhijeet SaxenaArgenis is a 49-year-old male who presents for follow-up regarding chronic right fungal sinusitis. The patient reports occasional sensations of headache and throat irritation. He has not been performing saline or steroid nasal washes recently. The patient underwent previous surgery for fungal sinusitis, which appears to have resolved the infection without recurrence of polyps or concerning findings. Allergy testing was performed previously and was negative. An clinical education specialist was present during the visit to facilitate communication. DEYVI AMBROSE MD [address] [facility],[place] [address], [place], [address], [facility] - [facility] 04/24/2025 12:29:20
== END 2025-05-30 13:39 | disposition home or self-care (01) ==
LOC: HO.HMCH 12:40
PROVIDERS: PCP Internal Medicine
DX: Z23 Encounter for immunization (principal)

== ENCOUNTER → 2025-05-30 12:39 | Outpatient (BNVA) | payer OTHER, SELFPAY | PROVIDERS: PCP Internal Medicine | DX: Z23 Encounter for immunization (principal) | CPT/HCPCS: 90471; 90656 ==

== ENCOUNTER 2025-06-06 14:11 | Outpatient (AMB) | payer OTHER, SELFPAY ==
--- NOTE | 2025-06-06 14:52 | A.OFFVIS_ITS ---
Intake Visit Reasons: excision scalp lesion Allergies No Known Allergies Allergy (Verified 05/14/25 13:53) HPI HPI excision scalp lesion: Details: He is here for excision of the scalp mass. [facility] Medical History (Updated 06/06/25 @ 15:22 by Avery Leiva MD) Scalp mass Scalp cyst Depression Deaf Surgical History Hx of colonoscopy History of esophagogastroduodenoscopy (EGD) Umbilical hernia (12/18/22) Social History Housing: Apartment Patient Tobacco Use Status: Never used Tobacco Tobacco use type: Cigarette e-Cigarette/Vaping Use: Never Used Second Hand Smoke Exposure: No service: No Current occupational status: disabled Current occupational exposures/hazards: No Cognitive needs: Yes Hearing needs: No Vision needs: Yes Office Procedures Excision Details: He was placed in reclining position. The area of the mass on the parietal region was prepped and draped. Lidocaine 1% was used for local anesthesia. I made an incision in the skin overlying the mass. This carried down sharply through the full-thickness of the skin and subcutaneous fat until a lipomatous mass was visualized. This was sharply dissected with Metzenbaum scissors until this was delivered. This was about a 1 cm lipomatous mass. I closed the incision with a full-thickness nylon 3-0 simple interrupted sutures. The procedure was completed. He tolerated the procedure well. There were no immediate complications. He was given wound care instructions. 58200-Szjazcsk scalp/neck/hands/feet/genitalia 0.6cm-1cm Procedure code (CPT) selection complete Assessment & Plan Assessment & Plan (1) Scalp mass: Code(s): R22.0 - Localized swelling, mass and lump, head Category: Medical Plan: Excision was done in the office. This appeared to be a lipoma. He tolerated procedure well. He was given wound care instructions. I will see him in the office in about 2 weeks for removal sutures. Coding Level of Care Code Procedure Only Diagnoses Scalp mass R22.0 CPT Codes Scalp/Neck/Hands/Feet/Genetalia - CPT: 41267-Bjrbfgsv scalp/neck/hands/feet/genitalia 0.6cm-1cm ([id number])
--- OUTSIDE RECORDS SUMMARY | 2025-06-06 17:26 | XMS_ITS | Data Portability ---
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 Role Phone RAPHAEL BARAHONA Primary Care [...] Go To The Location Of Their Choice, [id number] 04/24/2024 00:13:21 nettle IgE Ab, serum 2023 024 [facility] (Centralized [facility] Ordering - All Locations), Patient Can Go To The Location Of Their Choice, [id number] 05/05/2024 12:38:04 bahia grass IgE Ab, quanti tative , serum 2023 024 [facility] ([facility] Ordering - All Locations), Patient Can Go To The Location Of Their Choice, [id number] 05/05/2024 12:38:04 bermud a grass ige, serum 2023 024 [facility] ([facility] Ordering - All Locations), Patient Can Go To The Location Of Their Choice, [id number] 05/05/2024 12:38:05 englis h planta in ige, serum 2023 024 [facility] ([facility] Ordering - All Locations), Patient Can Go To The Location Of Their Choice, [address] 05/05/2024 12:38:05 ige, total, serum 2023 024 [place] [facility] ([facility] Order[facility] - All Locations), Patient Can Go To The Location Of Their Choice, [id number] 04/24/2024 00:13:22 Referral None record ed. Procedures None record ed. Surgeries None record ed. Imaging None record ed. Medication Orders ipratr opium bromid e 21 mcg (0.03 %) nasal spray 2024 025 [facility] #[id number], [address], [place], [address], 05/17/2025 10:19:20 Patient TargetsNo targets recorded. Patient Instructions Encounter Date Encounter Id Patient Instructions Last Modified By Organization Details Last Modified Time 10/23/2024 [id number] Overall doing well. No recurrent sinus congestion or fungal disease. Likely some ear irritation due to the irrigations. Reduce irrigations to once daily and go slower to reduce ear irritation parts interpreter Alla [id number] david Not available 10/23/2024 09:18:49 04/24/2025 [id number] - Resume saline nasal irrigation to alleviate [...] >100. 00 Very High Not Available [facility] ([facility]) [address] [facility], [place], [address], 04/24/2024 00:13:21 04/21/20 24 04/23/2024 ALLER GENS, ZONE 1 O513-KgX D pteronyssinu s <0.10 kU/L class 0 Not Available [facility] ([facility]) [address] [facility], [place], [address], 04/24/2024 00:13:21 04/21/20 24 04/23/2024 ALLER GENS, ZONE 1 Q544-YxK D farinae <0.10 kU/L class 0 Not Available [facility] ([facility]) [address] [facility], [place], [address], 04/24/2024 00:13:21 04/21/20 24 04/23/2024 ALLER GENS, ZONE 1 N936-QoD CAT dander <0.10 kU/L class 0 Not Available [facility] ([facility]) [address] [facility], [place], [address], 04/24/2024 00:13:21 04/21/20 24 04/23/2024 ALLER GENS, ZONE 1 U085-WpU dog dander <0.10 kU/L class 0 Not Available [facility] ([facility]) [address] [facility], [place], [address], 04/24/2024 00:13:21 04/21/20 24 04/23/2024 ALLER GENS, ZONE 1 y216-CuP bermuda grass <0.10 kU/L class 0 Not Available [facility] ([facility]) [address] [facility], [place], [address], 04/24/2024 00:13:21 04/21/20 24 04/23/2024 ALLER GENS, ZONE 1 b292-RsX bluegrass, [place] <0.10 kU/L class 0 Not Available [facility] ([facility]) [address] [facility], [place], [address], 04/24/2024 00:13:21 04/21/20 24 04/23/2024 ALLER GENS, ZONE 1 t558-RkX bahia grass <0.10 kU/L class 0 Not Available [facility] ([facility]) [address] [place], [address], 04/24/2024 00:13:21 04/21/20 24 04/23/2024 ALLER GENS, ZONE 1 X409-ZlQ cockroach, danish <0.10 kU/L class 0 Not Available [facility] ([facility]) [address] [place], [address], 04/24/2024 00:13:21 04/21/20 24 04/23/2024 ALLER GENS, ZONE 1 B958-PrP penicillium chrysogen <0.10 kU/L class 0 Not Available [facility] ([facility]) [address] [place], [address], 04/24/2024 00:13:21 04/21/20 24 04/23/2024 ALLER GENS, ZONE 1 Z063-TyO cladosporium herbarum <0.10 kU/L class 0 Not Available [facility] ([facility]) [address] [place], [address], 04/24/2024 00:13:21 04/21/20 24 04/23/2024 ALLER GENS, ZONE 1 K432-AiE aspergillus fumigatus <0.10 kU/L class 0 Not Available [facility] ([facility]) [address] [place], [address], 04/24/2024 00:13:21 04/21/20 24 04/23/2024 ALLER GENS, ZONE 1 X179-GsJ mucor racemosus <0.10 kU/L class 0 Not Available [facility] ([facility]) [address] [place], [address], 04/24/2024 00:13:21 04/21/20 24 04/23/2024 ALLER GENS, ZONE 1 K599-KjF alternaria alternata <0.10 kU/L class 0 Not Available [facility] ([facility]) [address] [place], [address], 04/24/2024 00:13:21 04/21/20 24 04/23/2024 ALLER GENS, ZONE 1 N142-XjJ stemphylium herbarum <0.10 kU/L class 0 Not Available [facility] ([place] [facility]) [address], [place], [address], 04/24/2024 00:13:21 04/21/20 24 04/23/2024 ALLER GENS, ZONE 1 G386-XeR common silver birch <0.10 kU/L class 0 Not Available [facility] ([place] [facility]) [address], [place], [address], 04/24/2024 00:13:21 04/21/20 24 04/23/2024 ALLER GENS, ZONE 1 E780-SmW oak, white <0.10 kU/L class 0 Not Available [facility] ([facility]) [address], [place], [address], 04/24/2024 00:13:21 04/21/20 24 04/23/2024 ALLER GENS, ZONE 1 L157-WmT elm, danish <0.10 kU/L class 0 Not Available [facility] ([place] [facility]) [address], [place], [address], 04/24/2024 00:13:21 04/21/20 24 04/23/2024 ALLER GENS, ZONE 1 G812-HsB maddie, white <0.10 kU/L class 0 Not Available [facility] ([place] [facility]) [address], [place], [address], 04/24/2024 00:13:21 04/21/20 24 04/23/2024 ALLER GENS, ZONE 1 R057-UwB maple/box elder <0.10 kU/L class 0 Not Available [facility] ([place] [facility]) [address], [place], [address], 04/24/2024 00:13:21 04/21/20 24 04/23/2024 ALLER GENS, ZONE 1 W641-HfT hazelnut tree <0.10 kU/L class 0 Not Available [facility] ([place] [facility]) [address], [place], [address], 04/24/2024 00:13:21 04/21/20 24 04/23/2024 ALLER GENS, ZONE 1 W613-TaF hickory, white <0.10 kU/L class 0 Not Available [facility] ([place] [facility]) [address], [place], [address], 04/24/2024 00:13:21 04/21/20 24 04/23/2024 ALLER GENS, ZONE 1 B104-RaQ white mulberry <0.10 kU/L class 0 Not Available [facility] ([place] [facility]) [address], [place], [address], 04/24/2024 00:13:21 04/21/20 24 04/23/2024 ALLER GENS, ZONE 1 N741-XjT cedar, mountain <0.10 kU/L class 0 Not Available [facility] ([place] [facility]) [address], [place], [address], 04/24/2024 00:13:21 04/21/20 24 04/23/2024 ALLER GENS, ZONE 1 I267-RxE ragweed, short <0.10 kU/L class 0 Not Available [facility] ([place] [facility]) [address], [place], [address], 04/24/2024 00:13:21 04/21/20 24 04/23/2024 ALLER GENS, ZONE 1 P078-XkL mugwort <0.10 kU/L class 0 Not Available [facility] ([place] [facility]) [address], [place], [address], 04/24/2024 00:13:21 04/21/20 24 04/23/2024 ALLER GENS, ZONE 1 Z672-AcK plantain, divehi <0.10 kU/L class 0 Not Available [facility] ([facility]) [address] [facility], [place], [address], 04/24/2024 00:13:21 04/21/20 24 04/23/2024 ALLER GENS, ZONE 1 R306-KvI pigweed, common <0.10 kU/L class 0 Not Available [facility] ([facility]) [address] [facility], [place], [address], 04/24/2024 00:13:21 04/21/20 24 04/23/2024 ALLER GENS, ZONE 1 S838-SnI sheep sorrel <0.10 kU/L class 0 Not Available [facility] ([facility]) [address] [facility], [place], [address], 04/24/2024 00:13:21 04/21/20 24 04/23/2024 ALLER GENS, ZONE 1 B633-IbG nettle <0.10 kU/L class 0 Not Available [facility] ([facility]) [address] [facility], [place], [address], 04/24/2024 00:13:21 04/21/20 24 04/23/2024 IMMUN OGLOB ULIN E, TOTAL immunoglobul in E, total 67 IU/mL 6-495 Not Available [facility] ([facility]) [address] [facility], [place], [address], 04/24/2024 00:13:22 Result Notes None recorded. Problems Name Problem SNOMED Code Status Onset Date Resolution Date Notes Provider Name and Address Organization Details Recorded Time Posterior rhinorrhe a 69508939 Active 2022 Postnasal drip; Note: Date Diagnosed : 02/08/2023 2:36 PM (R09.82) DEYVI JONES MD [address] [place] [address], [place], [address] , [facility] - [facility] 09/30/202 5 09:13:50 Chronic maxillary sinusitis 85189832 Active 2022 Chronic maxillary sinusitis ; Note: Date Diagnosed : 02/08/2023 5:04 PM (J32.0) Not Available [facility] 4 03:12:36 Chronic rhinitis 27890092 Active 2022 Chronic rhinitis; Note: Date Diagnosed : 02/08/2023 2:36 PM (J31.0) Not Available [facility] 4 03:12:37 Deviated nasal septum 200893848 Active 2022 Deviated nasal septum; Note: Date Diagnosed : 04/29/2023 10:40 AM (J34.2) Not Available [facility] 4 03:12:36 Hypertrop hy of nasal turbinate s 83497931 Active 2022 Hypertrop hy of nasal turbinate s; Note: Date Diagnosed : 3 5:07 PM (J34.3) Not Available [facility] 4 03:12:36 Follow-up visit Active 2022 Encounter for follow-up examinati on after completed treatment for condition s other than malignant neoplasm; Note: Date Diagnosed : 3 2:23 PM (Z09) Not Available [facility] 4 03:12:36 Sensorine ural hearing loss 66954217 Active 2023 Congenita l deafness NOS; Note: Date Diagnosed : 10/22/2023 9:18 AM (H90.5) Not Available [facility] 4 03:12:36 Pain of left temporoma ndibular joint 08168759873 674602 Active 2023 Arthralgi a of left temporoma ndibular joint; Note: Date Diagnosed : 10/22/2023 9:20 AM (M26.622) Not Available [facility] 4 03:12:37 Allergic rhinitis 48655497 Active 2023 DEYVI JONES MD [address] [place] [address], [facility] [place], [address] , [place] - [facility] 4 09:36:47 Bilateral deafness 333663459 Active 2024 DEYVI JONES MD [address], [place], [address] , [facility] - [facility] [place] 5 09:13:46 Gastroeso phageal reflux disease 409337665 Active 2024 DEYVI JONES MD [address], [place], [address] , [facility] - [facility] 5 09:14:08 Problem Notes None recorded. Procedures Surgical History Date Name Laterality Status Provider Name and Address Organization Details Recorded Time 5 JMSNasal/Sinus Endoscopy-PRIOR surgical cavities completed DEYVI AMBROSE MD [address] [facility] [address] [place] [facility], [place], [address], [facility] - [facility] 04/24/2025 09:13:42 5 JMSNasal/Sinus Endoscopy-PRIOR surgical cavities completed DEYVI AMBROSE MD [address] [facility] [address] [facility], [place], [address], [facility] - [facility] 10/23/2024 09:11:07 4 JMSNasal/Sinus Endoscopy-PRIOR surgical cavities completed DEYVI AMBROSE MD [address] [facility] [place] [facility], [place], [address], [facility] - [facility] 04/21/2024 09:36:07 maxillary sinusotomy completed DEYVI AMBROSE MD [address] [facility] [place] [facility], [place], [address], [facility] - [facility] 04/24/2025 09:08:10 Imaging Results None recorded. Procedure [...] e 205.5 mcg (0.15 %) nasal spray [place] 2 spray into both nostrils twice a day 10/23 completed Medicati on ID: [id number] D uration Value: 30 Brand Name: azelasti eccil Send Method: E-Prescr ibed Sub s Allowed: [...] Details Last Updated DateTime 10/23/2024 177.8 cm 55793.55 g Maureen Cuellar [place] - [facility] 10/23/2024 08:46:45 Date Recorded Body height Body weight Provider Name and Address Organization Details Last Updated DateTime 04/21/2024 177.8 cm 16532.55 g Maureen Cuellar [place] - [facility] 04/21/2024 08:40:06 Date Recorded Body height Provider Name an d Address Organization Details Last Updated DateTime 04/24/2025 177.8 cm MALIK BENJAMIN [place] - [facility] 04/24/2025 08:56:24 Social History None recorded. Functional Status None recorded. Mental Status None recorded. Family History Nothing Reported. Medical History Condition Response Hearing Loss Y Depression Y Past Encounters Encounter ID Performer Location Encounter Start Date Encounter Closed Date Diagnosis/Indication Diagnosis SNOMED-CT Code Diagnosis ICD10 Code Diagnosis IMO Codes Diagnosis Note [id number] DEYVI JONES MD [facility] [address] [address] 04/21/2024 08:36:20 04/21/2024 09:42:53 Chronic rhinitis 47667161 J31.0 Allergic rhinitis 661587 04 J30.9 Posterior rhinorrhea 758 00092 R09.82 [id number] DEYVI JONES MD [facility] [address] [address] 10/23/2024 08:43:38 10/23/2024 09:19:01 Chronic maxillary sinusitis 04139794 J32.0 Bilateral deafness 69057 4009 H91.93 [id number] DEYVI JONES MD [facility] [address] [address] 04/24/2025 08:22:44 04/24/2025 09:19:29 Bilateral deafness 682211080 H91.93 Posterior rhinorrhea 758 98859 R09.82 Gastroesop hageal reflux disease 400905225 K21.9 51714997 Health Concerns Section Related Observation LastModified by Organization Detai ls LastModified Time None Recorded Concern Status LastModified by Organization Details LastModified Time None Recorded Advance Directives Directive None Recorded Payers Insurance Date Sequence Insurance Name Policy Number Policy Raza Covered Member ID Raza Member ID Guarantor Name 04/24/2025 1 [facility] - DOS ON OR AFTER 2022 - ONE CARE (MEDICARE REPLACEMENT/ADV ANTAGE - HMO) Abhijeet Radha Catina baumann [id number] Abhijeet Radha Abel meraz Notes Date Note Type Note Provider Name and Address Organization Details Recorded Time 04/21/2024 text/html History of septoplasty, turbinate reduction in maxillary antrostomy May 2023.Irrigating with saline/budesonide parts interpreter present Doing well with BID irrigations. Occasional mucous and blood tinged secretions. DEYVI AMBROSE MD [address] [facility],[address], [address], [place] - [facility] 04/21/2024 09:40:43 10/23/2024 text/html ROS as noted in the HPI Hx of chronic sinus/polyps/fungus right side. Still some PND and throat irritationDoing irrigations with budesonide BID History of septoplasty, turbinate reduction in maxillary antrostomy May 2023 for fungal diseaseIrrigating with saline/budesonide parts interpreter present Doing well with BID irrigations. Occasional mucous and blood tinged secretions. DEYVI AMBROSE MD [address] [facility],[address], [address], [place] - [facility] 10/23/2024 09:19:07 04/24/2025 text/html Abhijeet SaxenaArgenis is [...] was performed previously and was negative. An court interpreter was present during the visit to facilitate communication. DEYVI AMBROSE MD [address] [facility],[place] [address], [place], [address], [facility] - [facility] 04/24/2025 12:29:20
--- OUTSIDE RECORDS SUMMARY | 2025-06-06 17:26 | XMS_ITS | Continuity of Care Document ---
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 The patient's symptoms are likely related to environmental factors such as pollution in the weed. Allergy testing performed previously was negative. The [...] instructions on how to set up access. [email or web address] Not available 04/24/2025 09:17:52 Plan of Treatment Reminders Order Date Submit Date Provider Last Modified By Organization Details Last Modified Time Details Appointments Establish ed 2025 10:30A M DEYVI ESPOSITO MD Not available Not available Not available Lab None recorded. Referral None recorded. Procedures None recorded. Surgeries None recorded. Imaging None recorded. Medication Orders ipratropi um bromide 21 mcg (0.03 %) nasal spray 2024 Cheko José [facility] #[id number], [address] [facility] [place], [place], [address], 05/17/2025 10:19:20 Patient TargetsNo targets recorded. Patient Instructions Encounter Date Encounter Id Patient Instructions Last Modified By Organization Details Last Modified Time 04/24/2025 [id number] - Resume saline nasal irrigation to alleviate mucus buildup and postnasal drip. - Use prescribed nasal spray up to three times daily as needed. - Set up access to the patient portal for communication and follow-up. [email or web address] Not available 04/24/2025 09:17:52 Please note: Parts of this encounter note have been generated by AI based on audio conversation. Patient consent was required prior to utilizing this technology. Content review was required prior to finalizing the note. [email or web address] Not available 04/24/2025 09:17:53 Reason for Referral None Reported. Problems Name Problem SNOMED Code Status Onset Date Resolution Date Notes Provider Name and Address Organization Details Recorded Time Posterior rhinorrhe a 03943658 Active 2022 Postnasal drip; Note: Date Diagnosed : 02/08/2023 2:36 PM (R09.82) DEYVI JONES MD [address] [place] [address], [place], [address] , [facility] - [facility] 5 09:13:50 Chronic maxillary sinusitis 35529091 Active 2022 Chronic maxillary sinusitis ; Note: Date Diagnosed : 02/08/2023 5:04 PM (J32.0) Not Available [facility] 4 03:12:36 Chronic rhinitis 93577122 Active 2022 Chronic rhinitis; Note: Date Diagnosed : 02/08/2023 2:36 PM (J31.0) Not Available [facility] 4 03:12:37 Deviated nasal septum 019438183 Active 2022 Deviated nasal septum; Note: Date Diagnosed : 04/29/2023 10:40 AM (J34.2) Not Available [facility] 4 03:12:36 Hypertrop hy of nasal turbinate s 06951596 Active 2022 Hypertrop hy of nasal turbinate s; Note: Date Diagnosed : 3 5:07 PM (J34.3) Not Available [facility] 4 03:12:36 Follow-up visit Active 2022 Encounter for follow-up examinati on after completed treatment for condition s other than malignant neoplasm; Note: Date Diagnosed : 3 2:23 PM (Z09) Not Available [facility] 4 03:12:36 Sensorine ural hearing loss 78825110 Active 2023 Congenita l deafness NOS; Note: Date Diagnosed : 10/22/2023 9:18 AM (H90.5) Not Available [facility] 4 03:12:36 Pain of left temporoma ndibular joint 04228023990 681965 Active 2023 Arthralgi a of left temporoma ndibular joint; Note: Date Diagnosed : 10/22/2023 9:20 AM (M26.622) Not Available [facility] 4 03:12:37 Allergic rhinitis 21623245 Active 2023 DEYVI JONES MD [address] [place] [address], [place], [address] , [facility] - [facility] 4 09:36:47 Bilateral deafness 252548384 Active 2024 DEYVI JONES MD [address] [place], [place] [address] [place], [address] , [place] [facility] 5 09:13:46 Gastroeso phageal reflux disease 204325925 Active 2024 DEYVI JONES MD [address] [place], [place] [address] [place], [address] , [facility] - [facility] 5 09:14:08 Problem Notes None recorded. Procedures Surgical History Date Name Laterality Status Provider Name and Address Organization Details Recorded Time 5 JMSNasal/Sinus Endoscopy-PRIOR surgical cavities completed DEYVI AMBROSE MD [address], [place], [address], [facility] - [facility] 04/24/2025 09:13:42 5 JMSNasal/Sinus Endoscopy-PRIOR surgical cavities completed DEYVI AMBROSE MD [address], [place], [address], [place] - [facility] 10/23/2024 09:11:07 4 JMSNasal/Sinus Endoscopy-PRIOR surgical cavities completed DEYVI AMBROSE MD [address], [place], [address], [facility] - [facility] 04/21/2024 09:36:07 maxillary sinusotomy completed DEYVI AMBROSE MD [address], [place], [address], [facility] - [facility] 04/24/2025 09:08:10 Imaging Results None recorded. Procedure [...] e 205.5 mcg (0.15 %) nasal spray [place] 2 spray into both nostrils twice a day 10/23 completed Medicati on ID: [id number] D uration Value: 30 Brand Name: samuel jacob Send Method: E-Prescr ibed Sub s Allowed: subs OK Medic ationGen ericName : susanasti ne Not Available Not Available Not Available sodium,po tassium,m ag sulfates 17.5 gram-3.13 gram-1.6 gram oral soln DILUTE THEN DRINK 1/2 BY MOUTH AT 6-8 PM AND HALF AT 11 PM- 1AM active Not Available Not Available No t Available Vitals Date Recorded Body height Provider Name an d Address Organization Details Last Updated DateTime 04/24/2025 177.8 cm MALIK BENJAMIN [place] - [facility] 04/24/2025 08:56:24 Social History None recorded. Functional Status None recorded. Mental Status None recorded. Family History Nothing Reported. Medical History Condition Response Depression Y Hearing Loss Y Past Encounters Encounter ID Performer Location Encounter Start Date Encounter Closed Date Diagnosis/Indication Diagnosis SNOMED-CT Code Diagnosis ICD10 Code Diagnosis IMO Codes Diagnosis Note [id number] DEYVI JONES MD [facility] [address] [place] [address] 04/24/2025 08:22:44 04/24/2025 09:19:29 Bilateral deafness 168782066 H91.93 Posterior rhinorrhea 758 44274 R09.82 Gastroesop hageal reflux disease 427185012 K21.9 [id number] Health Concerns Section Related Observation LastModified by Organization Detai ls LastModified Time None Recorded Concern Status LastModified by Organization Details LastModified Time None Recorded Payers Encounter Date Sequence Insurance Name Policy Number Policy Raza Covered Member ID Raza Member ID Guarantor Name 04/24/2025 1 [facility] - DOS ON OR AFTER 2022 - ONE CARE (MEDICARE REPLACEMENT/ADV ANTAGE - HMO) Abhijeet Radha Catina baumann [id number] Abhijeet meraz Notes Date Note Type Note Provider Name and Address Organization Details Recorded Time 04/24/2025 text/html Abhijeet DanielsonEfrain is a 49-year-old male who presents for [...] was performed previously and was negative. An behavioral health assistant was present during the visit to facilitate communication. DEYVI AMBROSE MD [address] [place] [address], [address] - [facility] 04/24/2025 12:29:20
== END 2025-06-06 15:16 | disposition home or self-care (01) ==
LOC: HO.HGS 14:11
PROVIDERS: Visit Provider Surgery
DX: R22.0 Localized swelling, mass and lump, head (principal)
CPT/HCPCS: 11421

== ENCOUNTER 2025-06-06 14:11 | Outpatient (REF) | payer OTHER, SELFPAY | END 2025-06-06 14:12 | disposition home or self-care (01) | LOC: HO.LNP 14:11 | PROVIDERS: Visit Provider Surgery | DX: R22.0 Localized swelling, mass and lump, head (principal) | CPT/HCPCS: 11421; 88304; 88305 ==

== ENCOUNTER 2025-06-18 12:58 | Outpatient (AMB) | payer OTHER, SELFPAY ==
--- NOTE | 2025-06-18 13:02 | A.OFFVIS_ITS ---
Vital Signs 06/18/25 13:07 Height 5 ft 9 in Weight 207 lb 7.985 oz BMI 30.6 Intake Visit Reasons: s/p excision scalp lesion Intake Note: Patient presents for suture removal status post excision scalp lesion. Pt c/o; no complaints at this time. Rehabilitation Director Required: Yes Rehabilitation Director Language: Home Appliance Installer Services: Rehabilitation Director Present Rehabilitation Director Name: [id number] Information Interpreted: non-clinical & clinical Accompanied by: Self / Same As Patient Allergies No Known Allergies Allergy (Verified 06/18/25 13:08) HPI HPI s/p excision scalp lesion: Details: He underwent excision of a scalp mass under local anesthesia last 06/07/2025. He tolerated the procedure well and currently denies significant complaints. [facility] Medical History Scalp mass Scalp cyst Depression Deaf Surgical History Hx of colonoscopy History of esophagogastroduodenoscopy (EGD) Umbilical hernia (12/18/22) Social History Housing: Apartment Patient Tobacco Use Status: Never used Tobacco Tobacco use type: Cigarette e-Cigarette/Vaping Use: Never Used Second Hand Smoke Exposure: No service: No Current occupational status: disabled Current occupational exposures/hazards: No Cognitive needs: Yes Hearing needs: No Vision needs: Yes Review of Systems Const Denies chills and Denies fever(s) Resp Reports cough Physical Exam Vital Signs: BMI result Body Mass Index 30.6 Const General: comfortable and no acute distress HEENT Other: Excision site is well healed and not infected, sutures intact Assessment & Plan Assessment & Plan (1) Scalp mass: Code(s): R22.0 - Localized swelling, mass and lump, head Category: Medical Plan: Status post excision. His path report shows an neurofibroma. His incision is well healed. His sutures were removed. He can follow up on a p.r.n. basis. Coding Level of Care Code Global (25136) Diagnoses Scalp mass R22.0
[2025-06-18 13:07] VITALS: BMI 30.6
== END 2025-06-18 13:13 | disposition home or self-care (01) ==
LOC: HO.HGS 12:59
PROVIDERS: Visit Provider Surgery
DX: R22.0 Localized swelling, mass and lump, head (principal)
CPT/HCPCS: 99024

== ENCOUNTER → 2025-06-18 12:58 | Outpatient (BNVA) | payer OTHER, SELFPAY | PROVIDERS: Visit Provider Surgery | DX: R22.0 Localized swelling, mass and lump, head (principal) | CPT/HCPCS: 99212 ==

== ENCOUNTER 2025-07-02 10:41 | Outpatient (AMB) | payer OTHER, SELFPAY ==
[2025-07-02 10:52] VITALS: BP 124/76; PULSE 110; O2SAT 97
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
== END 2025-07-02 11:53 | disposition home or self-care (01) ==
LOC: HO.HMCH 10:42
DX: E78.5 Hyperlipidemia, unspecified (principal); E29.1 Testicular hypofunction; K21.9 Gastro-esophageal reflux disease without esophagitis; R51.9 Headache, unspecified; J30.9 Allergic rhinitis, unspecified

== ENCOUNTER → 2025-07-02 10:41 | Outpatient (BNVA) | payer OTHER, SELFPAY | PROVIDERS: PCP Internal Medicine | DX: K21.9 Gastro-esophageal reflux disease without esophagitis (principal); R51.9 Headache, unspecified; E29.1 Testicular hypofunction; J30.9 Allergic rhinitis, unspecified; R04.0 Epistaxis | CPT/HCPCS: 99212 ==